=== PATIENT | female | born 1960 | race Caucasian/White ===

== ENCOUNTER 2019-03-07 10:00 | Outpatient (RCR) | payer MEDICARE, SELFPAY | END 2019-05-08 23:59 | disposition home or self-care (01) | LOC: CHSSENLIFE 10:00 | PROVIDERS: PCP Internal Medicine; Visit Provider Psychiatry & Neurology Psychiatry | DX: F33.2 Major depressive disorder, recurrent severe without psychotic features (principal); F41.9 Anxiety disorder, unspecified; F60.9 Personality disorder, unspecified | CPT/HCPCS: 72072; 72100; 72146; 72148; 88305; 90853; 99213; G0463 ==

== ENCOUNTER 2019-05-10 12:00 | Outpatient (RCR) | payer MEDICARE, SELFPAY | END 2019-08-07 23:59 | disposition home or self-care (01) | LOC: CHSSENLIFE 12:00 | PROVIDERS: PCP Internal Medicine; Visit Provider Psychiatry & Neurology Psychiatry | DX: F33.2 Major depressive disorder, recurrent severe without psychotic features (principal); F41.9 Anxiety disorder, unspecified; F60.9 Personality disorder, unspecified | CPT/HCPCS: 90853; 99213; G0463 ==

== ENCOUNTER 2019-06-19 11:17 | Outpatient (CLI) | payer MEDICARE, SELFPAY | END 2019-06-19 11:18 | disposition home or self-care (01) | LOC: CHSLAB 11:23 | PROVIDERS: PCP Internal Medicine; Visit Provider Specialist | DX: C44.719 Basal cell carcinoma of skin of left lower limb, including hip (principal) | CPT/HCPCS: 88305 ==

== ENCOUNTER 2019-07-16 15:21 | Outpatient (CLI) | payer MEDICARE, SELFPAY ==
--- NOTE | ~2019-07-16 | CT_ITS ---
EXAMINATION: CT abdomen pelvis w con DATE: 07/16/2019 16:35 INDICATION: Acute abdominal pain TECHNIQUE: Computed tomography (CT) of the abdomen and pelvis was performed with 100 cc Omnipaque 350 intravenous contrast. The dose-length product was 193.61 mGy-cm. Automated exposure control and iter ative reconstruction technique were employed. COMPARISON: None. FINDINGS: Lung bases are within normal limits. Heart size is normal. No significant pleural or perica rdial effusion. There are surgical clips in the right pelvis suggesting previous appendectomy. Correl ate clinically. The liver, spleen, pancreas, adrenal glands are unremarkable. Gallbladder is present. There are multi ple small subcentimeter hypodensities of the kidneys, most likely benign cysts. No lymphadenopathy. G allbladder is present. No free air or free fluid. There is mild thickening of the distal aspect of th e stomach at the pylorus, suspicious for gastritis. IMPRESSION: 1. Abnormal thickening of the distal aspect of the stomach at the pylorus, suspicious for gastritis. Reviewed, dictated and finalized at location A. IMPRESSION: 1. Abnormal thickening of the distal aspect of the stomach at the pylorus, susp icious for gastritis.
[2019-07-16 15:45] LABS: Basophils Absolute Auto 0.06 K/mm3 (0.00-0.10); Basophils Percent Auto 0.6 % (0.0-1.0); Eosinophils Absolute Auto 0.29 K/mm3 (0.02-0.50); Eosinophils Percent Auto 2.8 % (1.0-6.0); Hematocrit 27.9 % (35.0-49.0); Hemoglobin 8.8 g/dL (12.0-15.0); Immature Granulocyte Absolute 0.04 K/mm3 (0.00-0.00); Immature Granulocyte Percent A 0.4 % (0.0-0.0); Lymphocytes Absolute Auto 2.93 K/mm3 (1.10-4.50); Lymphocytes Percent Auto 28.3 % (18.0-42.0); Mean Corpuscular HGB Conc 31.5 g/dL (32.0-36.0); Mean Corpuscular Hemoglobin 28.8 pg (27.0-31.0); Mean Corpuscular Volume 91.2 fL (78.0-102.0); Mean Platelet Volume 10.1 fl (9.2-11.8); Monocytes Absolute Auto 0.73 K/mm3 (0.10-0.90); Monocytes Percent Auto 7.1 % (2.0-11.0); Neutrophils Absolute Auto 6.3 K/mm3 (1.7-7.2); Neutrophils Percent Auto 60.8 % (50.0-70.0); Platelet Count Result 315 K/mm3 (150-420); Red Blood Count 3.06 M/mm3 (4.20-5.40); Red Cell Distribution Width 16.8 % (11.6-14.4); White Blood Count 10.3 K/mm3 (4.8-10.8)
[2019-07-16 15:48] LABS: Add Urine Microscopic? YES; Bilirubin Urine 1+ (Negative); Blood Urine Negative (Negative); Color Urine Yellow (Yellow); Glucose Urine UA Negative (Negative); Ketones Urine Trace (Negative); Leukocyte Esterase Ur Negative (Negative); Nitrate Urine Negative (Negative); Protein Urine Negative (Negative); Specific Grav Ur >= 1.030 (1.010-1.020); Urobilinogen Urine 0.2 mg/dL (0.2-1.0)
[2019-07-16 16:01] LABS: Alanine Aminotransferase 18 U/L (14-59); Albumin Level 3.9 g/dL (3.4-5.0); Alkaline Phosphatase 76 U/L (46-116); Amylase 101 U/L (25-115); Anion Gap 18.2 mmol/L (7-16); Aspartate Amino Transferase 15 U/L (15-37); Bilirubin,Total 0.2 mg/dL (0.00-1.00); Blood Urea Nitrogen 41 mg/dL (7-18); Calcium 9.2 mg/dL (8.5-10.1); Carbon Dioxide 22 mmol/L (21-32); Chloride 107 mmol/L (98-108); Estimated Glomerular Filt Rate 45; Glucose 123 mg/dL (70-99); Lipase 336 U/L (73-393); Osmolality Calculated 309 mOsm/kg (285-295); Potassium 3.2 mmol/L (3.5-5.1); Sodium 144 mmol/L (136-145); Total Protein 7.5 g/dL (6.4-8.2)
[2019-07-16 16:04] LABS: Lactic Acid 3.2 mmol/L (0.4-2.0)
[2019-07-16 16:11] LABS: Appearance Urine Sl Cloudy (Clear); Bacteria Urine 1+ /hpf; Mucus Urine Few /lpf; RBC Urine None seen /hpf (0-2); Squamous Epithelial Cell Urine Few /hpf (Few); WBC Urine None seen /hpf (0-3)
== END 2019-07-16 15:22 | disposition home or self-care (01) ==
LOC: CHSLAB 15:24
PROVIDERS: PCP Internal Medicine; Visit Provider Internal Medicine
DX: R10.9 Unspecified abdominal pain (principal)
CPT/HCPCS: 36415; 74177; 80053; 81001; 82150; 83605; 83690; 85025; 87077; 87086; 87088; Q9965

== ENCOUNTER 2019-07-16 16:54 | Observation (INO) | payer MEDICARE, SELFPAY ==
[2019-07-16] MEDS: SODIUM CHLORIDE 0.9% IV 1,000 ML 150 ML IV CONT ×2 (17:24→23:10)
[2019-07-16 17:25] VITALS: BP 196/94; PULSE 20; RESP 16; TEMP 36.7; O2SAT 99
[2019-07-16] MEDS: ONDANSETRON INJ 4 MG/2 ML VIAL IV PUSH ×2 (17:39→23:11)
[2019-07-16] MEDS: MORPHINE SULFATE 4 MG/ML INJ IV PUSH (17:40)
--- NOTE | 2019-07-16 18:02 | ED.NAVMDI ---
HPI - Nausea/Vomiting/Diarrhea General Chief complaint: Nausea/Vomiting/Diarrhea Stated complaint: sent from doctor morenita Source: patient Mode of arrival: ambulatory Limitations: no limitations History of Present Illness HPI Narrative: last week had a sensation of distension like she needed to burp, then on tuesday she began to experience nausea and vomiting. Her last BM was tuesday (not unusual for her) She has pain in ruq and LUQ as well. she describes the pain as achy and worse when she sits or stands. Laying doen is more comfortable. She denies blood or coffee ground emesis. MD elicited complaint: nausea, vomiting and abdominal pain Onset (ago): day(s) Description of vomiting: food contents Associated nausea: Yes Associated abdominal pain: Yes Location of pain: LUQ and RUQ Radiation: diffuse Pain consistency: constant Severity: moderate Quality: cramping Exacerbating factors: standing Relieving factors: other (laying down) Associated symptoms: nausea/vomiting and weakness Related Data Home Medications Medication Instructions Recorded Confirmed alprazolam 0.5 mg PO PRN PRN 07/16/19 07/16/19 amlodipine 2.5 mg PO DAILY 07/16/19 07/16/19 atorvastatin 40 mg PO DAILY 07/16/19 07/16/19 fluoxetine 40 mg PO DAILY 07/16/19 07/16/19 fluticasone propionate 50 mcg INTRANASAL BID 07/16/19 07/16/19 lamotrigine 200 mg PO DAILY 07/16/19 07/16/19 potassium chloride 10 meq PO DAILY 07/16/19 07/16/19 tizanidine 4 mg PO DAILY 07/16/19 07/16/19 topiramate 200 mg PO DAILY 07/16/19 07/16/19 Allergies Allergy/AdvReac Type Severity Reaction Status Date / Time lorazepam Allergy Unknown Verified 04/11/18 14:38 Penicillins Allergy Unknown Verified 04/11/18 14:07 phenytoin Allergy Unknown Verified 04/11/18 14:38 Sulfa (Sulfonamide Allergy Unknown HIVES Verified 06/23/17 11:46 Antibiotics) aripiprazole AdvReac Intermediate PASSES OUT Verified 06/23/17 11:46 amitriptyline AdvReac Unknown CONFUSION Verified 06/23/17 07:34 SEROTONINS AdvReac Severe SEIZURES, Uncoded 03/10/17 15:00 PASSES OUT LORAZEPAM (Generic Allergy) AdvReac Intermediate GETS Uncoded 03/10/17 15:00 VIOLENT Review of Systems Constitutional: Constitutional: Denies chills, Denies fever(s) and Reports weakness Eyes: Eyes: Reports no additional eye complaints ENT: Reports as per HPI Cardiovascular: Cardiovascular: Reports no additional cardiovascular complaints Respiratory: Respiratory: Reports no additional respiratory complaints Gastrointestinal: Gastrointestinal: Reports abdominal pain, Reports bloating, Denies constipation, Reports heartburn, Denies diarrhea, Reports nausea and Reports vomiting Genitourinary: Genitourinary: Reports no additional female genitourinary complaints Musculoskeletal: Musculoskeletal: Reports no additional musculoskeletal complaints Comments: nothing unusual; Integumentary/Breasts: Skin/Breast: Reports system reviewed and no additional complaints, except as docu Neurologic: Reports system reviewed and no additional complaints, except as documented Psychiatric: Psychiatric: Reports no additional psychiatric complaints Endocrine: Endocrine: Reports no additional endocrine complaints Hematologic/Lymphatic: Hematologic/Lymphatic: Reports no additional hematologic/lymphatic complaints Allergic/Immunologic: Allergic/Immunologic: Reports no additional allergic/immunologic complaints [facility] Family History Family History Other Family history of malignant neoplasm Social History Social History Smoking status: Never smoker Alcohol intake: never Exam Const: General: no acute distress and alert Nutritional Appearance: thin Orientation/consciousness: patient oriented x3 HENMT: Head: normal to inspection Eyes: Pupils: Equal, round and reactive pupils present EOM: EOMs intact bilaterally Neck: N
[2019-07-16] MEDS: SODIUM CHLORIDE 0.9% IV 1,000 ML 999 ML IV CONT (19:07)
[2019-07-16 19:30] VITALS: BP 174/83; PULSE 91; O2SAT 98
[2019-07-16 19:56] VITALS: BMI 18.7
[2019-07-16 20:00] VITALS: BP 169/87; PULSE 87; RESP 18; TEMP 36.5; O2SAT 99
[2019-07-17] VITALS: BP 169/70; PULSE 84; RESP 20; TEMP 36.2; O2SAT 97
--- NOTE | 2019-07-17 00:59 | PC.NURSE ---
Sleeping, resp even. IV continues 0.9NS @ 150ml hr.
[2019-07-17] MEDS: TIZANIDINE HCL 2 MG TABLET 4 MG (02:05)
[2019-07-17] MEDS: ACETAMINOPHEN 325 MG TABLET 650 MG PO (02:06)
[2019-07-17] MEDS: TIZANIDINE HCL 2 MG TABLET 4 MG PO (02:14)
--- NOTE | 2019-07-17 02:16 | PC.NURSE ---
Zanaflex 4mg po given per order. Pt stated she takes this @ bedtime. Tylenol 650 mg po given per request for abd & back pain. IV continues 150ml hr 0.9N<del>S</del>
[2019-07-17 03:22] VITALS: BP 160/74; PULSE 94; RESP 20; TEMP 36.3; O2SAT 97
--- NOTE | 2019-07-17 03:24 | PC.NURSE ---
IV continues 0.9NS @ 150ml hr.
--- NOTE | 2019-07-17 04:14 | PC.NURSE ---
Sleeping, resp even. IV continues 150ml hr 0.9NS.
[2019-07-17 05:33] LABS: Basophils Absolute Auto 0.04 K/mm3 (0.00-0.10); Basophils Percent Auto 0.6 % (0.0-1.0); Eosinophils Absolute Auto 0.28 K/mm3 (0.02-0.50); Eosinophils Percent Auto 4.1 % (1.0-6.0); Immature Granulocyte Absolute 0.02 K/mm3 (0.00-0.00); Immature Granulocyte Percent A 0.3 % (0.0-0.0); Lymphocytes Absolute Auto 2.63 K/mm3 (1.10-4.50); Lymphocytes Percent Auto 38.7 % (18.0-42.0); Mean Corpuscular HGB Conc 31.4 g/dL (32.0-36.0); Mean Corpuscular Hemoglobin 28.8 pg (27.0-31.0); Mean Corpuscular Volume 91.7 fL (78.0-102.0); Mean Platelet Volume 9.9 fl (9.2-11.8); Monocytes Absolute Auto 0.52 K/mm3 (0.10-0.90); Monocytes Percent Auto 7.6 % (2.0-11.0); Neutrophils Absolute Auto 3.3 K/mm3 (1.7-7.2); Neutrophils Percent Auto 48.7 % (50.0-70.0); Platelet Count Result 204 K/mm3 (150-420); Red Blood Count 2.29 M/mm3 (4.20-5.40); Red Cell Distribution Width 16.9 % (11.6-14.4); White Blood Count 6.8 K/mm3 (4.8-10.8)
[2019-07-17 05:44] LABS: Hemoglobin 6.6 g/dL (12.0-15.0)
--- NOTE | 2019-07-17 05:50 | PC.NURSE ---
Doctor notified of critical HG. New order received for type and screen to receive 2 units of blood product. Consent to received blood products obtained
--- NOTE | 2019-07-17 06:00 | PC.NURSE ---
Blood permit read & signed.
--- NOTE | 2019-07-17 06:28 | PC.NURSE ---
IV fluid infused. Awaiting blood product.
--- NOTE | 2019-07-17 06:53 | PM.IMPN ---
Progress Note: A&P Assessment and Plan (1) Gastritis: Qualifiers: Chronicity: acute Gastritis bleeding: without bleeding Gastritis type: unspecified gastritis Qualified Code(s): K29.00 - Acute gastritis without bleeding Code(s): K29.70 - Gastritis, unspecified, without bleeding Status: Acute (2) Anemia: Qualifiers: Anemia type: unspecified type Qualified Code(s): D64.9 - Anemia, unspecified Code(s): D64.9 - Anemia, unspecified Status: Acute Assessment and Plan: 1. Significant HB drop Subjective Date/time seen: 07/17/19 06:53 Interval history: pt HB dropped overnight, d/w Dr. Crawford. will transfer to [place] Objective Data Vital Signs Vital Signs: Vital Signs - 24 hr 07/16/19 17:25 07/16/19 19:30 07/16/19 20:00 Temperature 36.7 C 36.5 C Pulse Rate 20 L 91 87 Respiratory Rate 16 18 Blood Pressure 196/94 H 174/83 H 169/87 H Pulse Oximetry 99 98 99 07/17/19 00:00 07/17/19 03:22 Temperature 36.2 C L 36.3 C L Pulse Rate 84 94 Respiratory Rate 20 20 Blood Pressure 169/70 H 160/74 H Pulse Oximetry 97 97 Intake/Output Intake/Output: Intake & Output 07/14/19 07/15/19 07/16/19 07/17/19 23:59 23:59 23:59 23:59 Intake Total 1000 1050 Output Total 850 Balance 1000 200 Meds/Results Medications: Active Medications Generic Name Dose Route Start Last Admin Trade Name Freq PRN Reason Stop Dose Admin Acetaminophen 650 mg 07/16/19 20:48 07/17/19 02:06 Tylenol Tablet PO 650 mg Q6H PRN Administration Mild Pain (1-3) or Fever Alprazolam 0.5 mg 07/16/19 20:54 Xanax PO Q6H PRN Anxiety Amlodipine Besylate 2.5 mg 07/17/19 09:00 Norvasc PO DAILY LYUDMILA Atorvastatin Calcium 40 mg 07/17/19 09:00 Lipitor PO DAILY LYUDMILA Fluoxetine HCl 40 mg 07/17/19 09:00 Prozac PO DAILY LYUDMILA Fluticasone Propionate 1 spray 07/17/19 09:00 Flonase 0.05% Nasal Deposit NASAL BID LYUDMILA Sodium Chloride 250 mls @ 30 mls/hr 07/17/19 05:46 Normal Saline Iv IV CONT 07/17/19 14:05 .Q8H20M STA Lamotrigine 200 mg 07/17/19 09:00 Lamictal PO DAILY LYUDMILA Ondansetron HCl 4 mg 07/16/19 19:11 07/16/19 23:11 Zofran Inj IV PUSH 4 mg Q4H PRN Administration Nausea Pantoprazole Sodium 40 mg 07/17/19 09:00 Protonix Iv IV PUSH QAM LYUDMILA Potassium Chloride 10 meq 07/17/19 09:00 Kcl Tablet PO DAILY LYUDMILA Tizanidine HCl 4 mg 07/17/19 02:05 07/17/19 02:14 Zanaflex PO 4 mg HS LYUDMILA Administration Topiramate 200 mg 07/17/19 09:00 Topamax PO DAILY [facility] Labs Labs: Laboratory Results - last 24 hr 07/17/19 07/17/19 05:27 05:45 WBC 6.8 RBC 2.29 L Hgb 6.6 L* Hct 21.0 L MCV 91.7 MCH 28.8 MCHC 31.4 L RDW 16.9 H Plt Count 204 MPV 9.9 Immature Gran % (Auto) 0.3 H Neut % (Auto) 48.7 L Lymph % (Auto) 38.7 [place] % (Auto) 7.6 Eos % (Auto) 4.1 Baso % (Auto) 0.6 Lymph # (Auto) 2.63 [place] # (Auto) 0.52 Eos # (Auto) 0.28 Baso # (Auto) 0.04 Abs Immat Gran (auto) 0.02 H Absolute Neuts (auto) 3.3 Absolute Nucleated RBC 0.00 Nucleated RBC % 0.0 Blood Type A Positive Antibody Screen Negative Crossmatch See Detail
--- NOTE | 2019-07-17 07:16 | PM.DS ---
DS: Diagnosis Discharge Diagnosis (1) GI bleed: Code(s): K92.2 - Gastrointestinal hemorrhage, unspecified Status: Acute (2) Anemia: Qualifiers: Anemia type: unspecified type Qualified Code(s): D64.9 - Anemia, unspecified Code(s): D64.9 - Anemia, unspecified Status: Acute DS: Summary Hospital Course Reason for hospitalization: Pt was admitted last night with epigastric pain. It was noted that her HB was decreased 2 points from its baseline. Overnight pt did well, but on blood draw this AM HB had decreased to 6.6 This is a total drop of approximately 6 points. Due to concern for UGI bleed, we will transfer to [place]. Case was discussed with Dr. Recinos and Dr. Steel. Pts vss. Hospital Course: Protonix, IVF, pain control and HB monitoring Status at Discharge Functional status at discharge: independent ambulation Time Spent with Patient Time attestation: Total time spent providing and/or coordinating discharge services: 30 min Exam Narrative: Exam Narrative: exam as of 07/16/19 Const: General: no acute distress Resp: Effort & Inspection: normal respiratory effort Auscultation: clear to auscultation bilaterally Cardio: Rate: regular rate Rhythm: regular rhythm GI: GI Palp: Yes Soft to palpation and Yes Tenderness to palpation present (GI) (mild epigastric) Skin: General skin exam: normal color Neuro: General: gait normal Motor exam (neuro): Normal motor muscle tone present throughout Extrem: General: normal to inspection Psych: Appearance: grossly normal Mental Status: mental status grossly normal DS: Data Data Completed and Pending Labs on day of discharge: Labs from last 24 hours 07/17/19 07/17/19 05:45 05:27 WBC 6.8 RBC 2.29 L Hgb 6.6 L* Hct 21.0 L MCV 91.7 MCH 28.8 MCHC 31.4 L RDW 16.9 H Plt Count 204 MPV 9.9 Immature Gran % (Auto) 0.3 H Neut % (Auto) 48.7 L Lymph % (Auto) 38.7 [place] % (Auto) 7.6 Eos % (Auto) 4.1 Baso % (Auto) 0.6 Lymph # (Auto) 2.63 [place] # (Auto) 0.52 Eos # (Auto) 0.28 Baso # (Auto) 0.04 Abs Immat Gran (auto) 0.02 H Absolute Neuts (auto) 3.3 Absolute Nucleated RBC 0.00 Nucleated RBC % 0.0 Blood Type A Positive Antibody Screen Negative Crossmatch See Detail Discharge Plan Discharge Attending physician on discharge: Lynn Sheets Discharging Clinician: Lynn Sheets Patient Disposition: Acute Care Hospital Discharge Instructions: Transfer to [place] under Dr. Steel and Dr. Recinos, room 322 Discharge Medications: Continued fluoxetine 40 mg capsule 40 mg PO DAILY RF: 0 atorvastatin 40 mg tablet 40 mg PO DAILY RF: 0 lamotrigine 200 mg tablet 200 mg PO DAILY RF: 0 tizanidine 4 mg tablet 4 mg PO DAILY RF: 0 amlodipine 2.5 mg tablet 2.5 mg PO DAILY RF: 0 alprazolam 0.5 mg tablet 0.5 mg PO PRN PRN (Reason: Anxiety) RF: 0 topiramate 200 mg tablet 200 mg PO DAILY RF: 0 fluticasone propionate 50 mcg/actuation spray,suspension 50 mcg INTRANASAL BID RF: 0 potassium chloride 10 mEq tablet,ER particles/crystals 10 meq PO DAILY RF: 0 Date of admission: 07/16/19 19:19 Primary Care Provider: Uziel Garcia Admitting Provider: Lynn Sheets Attending physician on admission: Lynn Sheets Condition: Stable
--- NOTE | 2019-07-17 07:25 | PC.NURSE ---
Report called to [facility]
[2019-07-17 07:36] VITALS: BP 140/73; PULSE 86; RESP 18; TEMP 36.6; O2SAT 99
[2019-07-17 07:45] VITALS: BP 140/73; PULSE 86; RESP 18; TEMP 36.6; O2SAT 99
[2019-07-17 08:00] VITALS: BP 140/73; PULSE 86; RESP 18; TEMP 36.6; O2SAT 99
--- NOTE | 2019-07-17 08:46 | PC.NURSE ---
PRBC 1 unit started at 0745 at 100ml/hr. No s/s transfusion reaction noted or stated. 0800 PRBC increased to 125ml/hr. No s/s transfusion reaction noted or stated. 0840 [facility] ambulance transferred patient off of floor to [facility]. No s/s infusion reaction noted or stated.
== END 2019-07-17 08:40 | disposition short-term general hospital (02) ==
LOC: CHSED 19:18 → CHS2ND 19:20
PROVIDERS: Admitting Provider Emergency Medicine; Emergency Provider Emergency Medicine; PCP Internal Medicine; Visit Provider Emergency Medicine
DX: K92.2 Gastrointestinal hemorrhage, unspecified (principal); D64.9 Anemia, unspecified
CPT/HCPCS: 36415; 36430; 74177; 80053; 81001; 82150; 83605; 83690; 85025; 86850; 86900; 86901; 86920; 87077; 87086; 87088; 96361; 96374; 96375; 96376; 99285; A9270; G0378; J2270; J2405; J7030; P9016; Q9965

== ENCOUNTER 2019-07-17 14:27 | Observation (INO) | payer MEDICARE, SELFPAY ==
[2019-07-17] VITALS (9 sets, daily range): BP systolic 103–184; BP diastolic 59–94; PULSE 68–93; RESP 14–20; TEMP 36.4–36.9; O2SAT 98–100; BMI 19.1
--- NOTE | 2019-07-17 09:15 | PC.NURSE ---
Patient arrived from [facility] with a unit of PRBC infusing per IV pump at 125ml/hr. No signs or symptoms of blood transfusion reaction.
--- NOTE | 2019-07-17 09:15 | PC.NURSE ---
This patient, Rachele Wilkins, was admitted to [facility] Surg Room 322-01. Patient/family oriented to hospital policies and general routines including ID bracelet, bed and alarms, visiting hours, pain management, procedures, bathroom and other care routines, personal items, smoking policy, room service/diet, and visiting hours. Valuables list has been completed. Information on how to activate the Rapid Response Team has been discussed. Patient/Family are encouraged to report perceived risks to care and to ask questions if they do not understand what they are told or what they should do.
--- NOTE | 2019-07-17 10:35 | PC.NURSE ---
1 unit PRBC infused.
--- NOTE | 2019-07-17 10:40 | PC.NURSE ---
To GI Lab via [employer]er.
--- NOTE | 2019-07-17 10:57 | WPDGICN ---
Assessment and Plan Assessment and plan (1) Epigastric abdominal pain: Code(s): R10.13 - Epigastric pain Status: Acute Assessment and Plan: Patient has had epigastric pain for several days. Currently poorly responsive to current medications. In light of her epigastric pain baseline anemia and decline in hemoglobin EGD will be performed. No obvious bleeding reported. Dark stools is suspicious for upper GI bleeding. Plan is to guaiac stool Hemoccult patient will be started on proton pump inhibitor. An EGD will be performed. Patient will be transfused to a stable hemoglobin. And hematocrit monitored. (2) Anemia: Qualifiers: Anemia type: unspecified type Qualified Code(s): D64.9 - Anemia, unspecified Code(s): D64.9 - Anemia, unspecified Status: Acute GI Consult Note Consult date/time: 07/17/19 10:57 HPI: Rachele Wilkins is a 58 year old female Seen in evaluation at the request of the [facility] hospitalist. Patient reports a one-week history of epigastric pain nausea and some vomiting. Because of epigastric pain [facility] and was admitted for further evaluation at the time of admission hemoglobin was 8. Overnight her hemoglobin has declined to about 6. Patient states abdominal pain is persisted along with nausea over the last 3-4 days. She denies any obvious bleeding. She does report there stools were blackish 2 days ago. Her last bowel movement was 2 days ago. Family history is noncontributory. In the past she has a history of idiopathic pancreatitis and had nausea vomiting at that time. Her recent lipase was noted to be normal. She denies any prior history of ulcer disease. She takes no anticoagulation. Past medical history is significant for fibromyalgia, anxiety, elevated cholesterol. Review of Systems Review of Systems: All systems reviewed & are unremarkable except as noted in HPI and below PMFSH Past Medical History Medical History GI bleed Family History Family History Father Bladder cancer Malignant neoplasm of prostate Mother Lung cancer Other Family history of malignant neoplasm Social History Social History Smoking status: Never smoker Alcohol intake: never Substance use: never Gender identity (if verbalized by the patient): Female Spiritual care concerns: No Agree to blood products: Yes Meds Home Medications and Allergies Home Medications Medication Instructions Recorded Confirmed Type alprazolam 0.5 mg PO DAILY 07/16/19 07/17/19 History amlodipine 2.5 mg PO DAILY 07/16/19 07/17/19 History atorvastatin 80 mg PO DAILY 07/16/19 07/17/19 History fluoxetine 80 mg PO DAILY 07/16/19 07/17/19 History fluticasone propionate 50 mcg INTRANASAL BID PRN 07/16/19 07/17/19 History lamotrigine 200 mg PO BID 07/16/19 07/17/19 History potassium chloride 10 meq PO DAILY 07/16/19 07/17/19 History tizanidine 4 mg PO QID 07/16/19 07/17/19 History topiramate 200 mg PO BID 07/16/19 07/17/19 History alprazolam 0.5 mg PO DAILY PRN 07/17/19 07/17/19 History alprazolam 0.5 mg PO HS 07/17/19 07/17/19 History Allergies Allergy/AdvReac Type Severity Reaction Status Date / Time lorazepam Allergy Unknown Hallucinati Verified 07/17/19 09:51 ng Penicillins Allergy Unknown Anaphylactic Verified 07/17/19 09:51 Shock phenytoin Allergy Unknown Seizure Verified 07/17/19 09:51 Sulfa (Sulfonamide Allergy Unknown HIVES Verified 06/23/17 11:46 Antibiotics) aripiprazole AdvReac Intermediate PASSES OUT Verified 06/23/17 11:46 amitriptyline AdvReac Unknown CONFUSION Verified 06/23/17 07:34 prazosin AdvReac Unknown Confusion Verified 07/17/19 09:53 ropinirole [From Requip] AdvReac Unknown Muscle Verified 07/17/19 09:53 Spasms SEROTONINS AdvR
--- NOTE | 2019-07-17 11:00 | WPDANESEPPF ---
Anes - Initial Pre Proc Eval Procedure: Operation Date: 07/17/19 10:30 Proposed Procedures p Esophagogastroduodenoscopy - Giovani Crawford MD Date/Time: 07/17/19 11:00 Surgeon: Mohamud Steel MD Pre Op Diagnosis: abdominal pain/UGI bleed Patient Data Age: 58 Gender: F Height: 5 ft 5 in Weight: 52 kg Last Vital Signs Temp 36.6 C 07/17/19 09:15 Pulse 77 07/17/19 09:15 Resp 16 07/17/19 09:15 BP 177/85 H 07/17/19 09:15 Pulse Ox 100 07/17/19 09:15 Allergies Allergy/AdvReac Type Severity Reaction Status Date / Time lorazepam Allergy Unknown Hallucinati Verified 07/17/19 09:51 ng Penicillins Allergy Unknown Anaphylactic Verified 07/17/19 09:51 Shock phenytoin Allergy Unknown Seizure Verified 07/17/19 09:51 Sulfa (Sulfonamide Allergy Unknown HIVES Verified 06/23/17 11:46 Antibiotics) aripiprazole AdvReac Intermediate PASSES OUT Verified 06/23/17 11:46 amitriptyline AdvReac Unknown CONFUSION Verified 06/23/17 07:34 prazosin AdvReac Unknown Confusion Verified 07/17/19 09:53 ropinirole [From Requip] AdvReac Unknown Muscle Verified 07/17/19 09:53 Spasms SEROTONINS AdvReac Severe SEIZURES, Uncoded 03/10/17 15:00 PASSES OUT LORAZEPAM (Generic Allergy) AdvReac Intermediate GETS Uncoded 03/10/17 15:00 VIOLENT Home Medications Medication Instructions Recorded Confirmed Type alprazolam 0.5 mg PO DAILY 07/16/19 07/17/19 History amlodipine 2.5 mg PO DAILY 07/16/19 07/17/19 History atorvastatin 80 mg PO DAILY 07/16/19 07/17/19 History fluoxetine 80 mg PO DAILY 07/16/19 07/17/19 History fluticasone propionate 50 mcg INTRANASAL BID PRN 07/16/19 07/17/19 History lamotrigine 200 mg PO BID 07/16/19 07/17/19 History potassium chloride 10 meq PO DAILY 07/16/19 07/17/19 History tizanidine 4 mg PO QID 07/16/19 07/17/19 History topiramate 200 mg PO BID 07/16/19 07/17/19 History alprazolam 0.5 mg PO DAILY PRN 07/17/19 07/17/19 History alprazolam 0.5 mg PO HS 07/17/19 07/17/19 History Patient hx anesthesia problems: none Family hx anesthesia problems: none PMFSH Past Medical History Medical History GI bleed Family History Family History Father Bladder cancer Malignant neoplasm of prostate Mother Lung cancer Other Family history of malignant neoplasm Social History Social History Smoking status: Never smoker Alcohol intake: never Substance use: never Gender identity (if verbalized by the patient): Female Spiritual care concerns: No Agree to blood products: Yes Anes - Eval Final PreProcedure Day of Procedure 07/17/19 11:00 Patient weight: normal Heart: regular rate and rhythm Lungs: clear to auscultation Airway: Mallampati scale class II Neurological: alert and oriented Last oral intake: >/= 8 hours ASA classification: III Emergent: no Anesthetic plan: proceed Anesthesia type and monitoring: general GIVS and standard monitoring Informed Consent: The patient's anesthetic plan and its attendant risks and benefits were discussed with the patient/family/POA. Questions were solicited and answers provided to the satisfaction of the patient/family/POA.
--- NOTE | 2019-07-17 11:01 | SUR.PREOP ---
0950 PATIENT COMPLAINS OF HEADACHE RATES IT A NUMBER [id number] [id number] DR. GRIFFIN HERE TO SEE PATIENT, DR GRIFFIN INFORMED OF PATIENT'S B/P AND COMPLAINTS OF HEADACHE NO ORDERS RECEIVED AT THIS TIME. DR. GRIFFIN EXPLAINED TO PATIENT HE WOULD TREAT IT DURING THE PROCEDURE.DELFIN GARCIA
[2019-07-17] MEDS: LACTATED RINGERS 1,000 ML 150 ML IV CONT (11:08)
[2019-07-17] MEDS: PANTOPRAZOLE SODIUM IV 40 MG VIAL IV PUSH ×2 (11:59→20:47)
--- NOTE | 2019-07-17 13:19 | PM.IMHP ---
H&P: HPI History of Present Illness Chief complaint: abdominal pain/UGI bleed Narrative: Rachele Wilkins is a 58 year old female with depression anxiety and migraine headaches, long history chronic pain for which patient sees pain management and denies taking any NSAID as patient is treated with a injection, and states he had developed epigastric pain 2 days prior to coming to emergency depart the pain was getting persistent and worse see also noticed black tarry stool but there was no jim bleeding, initially seen at outside facility and was found to have hemoglobin of 6.6 and transferred to [facility] for further evaluation, was seen by GI and was taken to GI lab and had a EGD today which showed patient has a gastric ulcer with there was no acute bleeding, commended to start the patient on PPI and monitor, patient still complains of epigastric pain denies any nausea or vomiting fever or chills denies any jim bleeding. Review of Systems Review of Systems: All systems reviewed & are unremarkable except as noted in HPI and below PMFSH Past Medical History Medical History GI bleed Family History Family History Father Bladder cancer Malignant neoplasm of prostate Mother Lung cancer Other Family history of malignant neoplasm Social History Social History Smoking status: Never smoker Alcohol intake: never Substance use: never Gender identity (if verbalized by the patient): Female Spiritual care concerns: No Agree to blood products: Yes Meds Home Medications and Allergies Home Medications Medication Instructions Recorded Confirmed Type alprazolam 0.5 mg PO DAILY 07/16/19 07/17/19 History amlodipine 2.5 mg PO DAILY 07/16/19 07/17/19 History atorvastatin 80 mg PO DAILY 07/16/19 07/17/19 History fluoxetine 80 mg PO DAILY 07/16/19 07/17/19 History fluticasone propionate 50 mcg INTRANASAL BID PRN 07/16/19 07/17/19 History lamotrigine 200 mg PO BID 07/16/19 07/17/19 History potassium chloride 10 meq PO DAILY 07/16/19 07/17/19 History tizanidine 4 mg PO QID 07/16/19 07/17/19 History topiramate 200 mg PO BID 07/16/19 07/17/19 History alprazolam 0.5 mg PO DAILY PRN 07/17/19 07/17/19 History alprazolam 0.5 mg PO HS 07/17/19 07/17/19 History Allergies Allergy/AdvReac Type Severity Reaction Status Date / Time lorazepam Allergy Unknown Hallucinati Verified 07/17/19 09:51 ng Penicillins Allergy Unknown Anaphylactic Verified 07/17/19 09:51 Shock phenytoin Allergy Unknown Seizure Verified 07/17/19 09:51 Sulfa (Sulfonamide Allergy Unknown HIVES Verified 06/23/17 11:46 Antibiotics) aripiprazole AdvReac Intermediate PASSES OUT Verified 06/23/17 11:46 amitriptyline AdvReac Unknown CONFUSION Verified 06/23/17 07:34 prazosin AdvReac Unknown Confusion Verified 07/17/19 09:53 ropinirole [From Requip] AdvReac Unknown Muscle Verified 07/17/19 09:53 Spasms SEROTONINS AdvReac Severe SEIZURES, Uncoded 03/10/17 15:00 PASSES OUT LORAZEPAM (Generic Allergy) AdvReac Intermediate GETS Uncoded 03/10/17 15:00 VIOLENT Vital Signs Vital Signs - 24 hr 07/17/19 09:15 07/17/19 10:59 07/17/19 11:19 Temperature 97.9 F 98.4 F Pulse Rate 77 77 87 Respiratory Rate 16 16 16 Blood Pressure 177/85 H 184/94 H 153/75 H Pulse Oximetry 100 100 98 07/17/19 11:20 07/17/19 11:30 07/17/19 11:42 Temperature Pulse Rate 82 73 76 Respiratory Rate 15 14 16 Blood Pressure 152/72 H 167/88 H 169/78 H Pulse Oximetry 100 100 100 Exam Narrative: Exam Narrative: Patient appears chronically ill older than her age Const: General: no acute distress and uncomfortable HENMT: General nose exam: Normal nares present Mouth: Yes moist mucous membranes Eyes: General: appearance normal, both eyes and all related structures Sclera: sclerae normal N
[2019-07-17 14:01] LABS: Iron 69 ug/dL (37-170)
[2019-07-17 14:11] LABS: Percent Iron Saturation 18 % (20-50)
[2019-07-17] MEDS: ALPRAZOLAM 0.5 MG TABLET PO ×2 (15:31→20:47)
[2019-07-17] MEDS: lamoTRIgine 100 MG TABLET 200 MG PO (17:25)
[2019-07-17] MEDS: TOPIRAMATE 100 MG TABLET 200 MG PO (17:26)
[2019-07-17] MEDS: TIZANIDINE HCL 4 MG TABLET PO ×2 (17:26→20:47)
[2019-07-17 17:37] LABS: Hematocrit 31.9 % (37.0-47.0); Hemoglobin 10.3 g/dL (12.0-15.0)
[2019-07-18 00:36] LABS: Hematocrit 26.3 % (37.0-47.0); Hemoglobin 8.4 g/dL (12.0-15.0)
[2019-07-18] MEDS: ACETAMINOPHEN 325 MG TABLET 650 MG PO ×2 (02:30→08:06)
[2019-07-18 05:35] LABS: Hemoglobin 8.8 g/dL (12.0-15.0); Mean Corpuscular HGB Conc 31.4 g/dl (32-36); Mean Corpuscular Hemoglobin 28.7 pg (26-34); Mean Corpuscular Volume 91.2 fl (80-100); Mean Platelet Volume 9.9 fl (7.4-10.4); Platelet Count Result 226 k/mm3 (150-375); Red Blood Count 3.07 M/mm3 (4.2-5.4); Red Cell Distribution Width 15.9 % (11.5-14.5); White Blood Count 5.1 K/mm3 (4.5-10.0)
[2019-07-18 05:48] LABS: Blood Urea Nitrogen 10 mg/dL (7-17); Calcium 8.9 mg/dL (8.4-10.2); Carbon Dioxide 27 mmol/L (22-30); Chloride 107 mmol/L (98-107); Estimated CRCL calculation 43 ml/min; Estimated Glomerular Filt Rate 57; Glucose 99 mg/dL (65-105); Potassium 3.4 mmol/L (3.4-5.0); Sodium 139 mmol/L (137-145)
[2019-07-18 06:00] VITALS: BP 149/79; PULSE 78; RESP 20; TEMP 37.1; O2SAT 99
--- NOTE | 2019-07-18 07:30 | WPDGIPROGNO ---
Progress Note: A&P Additional Plan Patient much more comfortable this morning. Still notices some epigastric discomfort. No longer vomiting. Tolerated liquid diet without difficulty. Physical exam reveals her to be afebrile. Vital signs stable. HEENT exam she is unremarkable. Lungs are clear. Abdomen is soft. Bowel sounds are present. Mild epigastric tenderness. No masses are noted. Laboratory: Hemoglobin 8.8 is stable. She did receive transfusion yesterday. EGD revealed several gastric ulcers. No longer bleeding. Bleeding was probably several days ago. Partial gastric outlet obstruction noted at time of endoscopy. Impression 1. Peptic ulcer disease. Gastric ulcers with partial gastric outlet obstruction noted. Plan is for liquid diet to be advanced gradually. Protonix 40 mg p.o. b.i.d. advised. Follow-up EGD in 2 months suggested to document healing of gastric ulcers. If diet tolerated in pain improve she may be discharged today. Subjective Date/time seen: 07/18/19 07:30 Objective Data Vital Signs Vital Signs: Vital Signs - 24 hr 07/17/19 09:15 07/17/19 10:59 07/17/19 11:19 Temperature 36.6 C 36.9 C Pulse Rate 77 77 87 Respiratory Rate 16 16 16 Blood Pressure 177/85 H 184/94 H 153/75 H Pulse Oximetry 100 100 98 07/17/19 11:20 07/17/19 11:30 07/17/19 11:42 Temperature Pulse Rate 82 73 76 Respiratory Rate 15 14 16 Blood Pressure 152/72 H 167/88 H 169/78 H Pulse Oximetry 100 100 100 07/17/19 11:50 07/17/19 14:00 07/17/19 22:00 Temperature 36.6 C 36.4 C L 36.7 C Pulse Rate 78 93 68 Respiratory Rate 14 18 20 Blood Pressure 158/67 H 172/84 H 103/59 L Pulse Oximetry 100 100 99 07/18/19 06:00 Temperature 37.1 C Pulse Rate 78 Respiratory Rate 20 Blood Pressure 149/79 H Pulse Oximetry 99 Intake/Output Intake/Output: Intake & Output 07/15/19 07/16/19 07/17/19 07/18/19 23:59 23:59 23:59 23:59 Intake Total 925 790 Output Total 3490 400 Balance -2565 390 Meds/Results Medications: Active Medications Generic Name Dose Route Start Last Admin Trade Name Freq PRN Reason Stop Dose Admin Acetaminophen 650 mg 07/17/19 17:29 07/18/19 02:30 Tylenol Tablet PO 650 mg Q6H PRN Administration Mild Pain (1-3) or Fever Alprazolam 0.5 mg 07/17/19 15:16 07/17/19 15:31 Xanax PO 0.5 mg DAILY PRN Administration Anxiety Alprazolam 0.5 mg 07/17/19 21:00 07/17/19 20:47 Xanax PO 0.5 mg HS LYUDMILA Administration Alprazolam 0.5 mg 07/18/19 09:00 Xanax PO DAILY [facility] Amlodipine Besylate 2.5 mg 07/18/19 09:00 Norvasc PO DAILY [facility] Atorvastatin Calcium 80 mg 07/18/19 09:00 Lipitor PO DAILY [facility] Fluoxetine HCl 80 mg 07/18/19 09:00 Prozac PO DAILY [facility] Fluticasone Propionate 1 spray 07/17/19 15:16 Flonase 0.05% Nasal [place] NASAL BID PRN Allergy Symptoms Lamotrigine 200 mg 07/17/19 17:00 07/17/19 17:25 Lamictal PO 200 mg BID [facility] Administration Potassium Chloride 10 meq 07/18/19 09:00 Kcl Tablet PO DAILY [facility] Tizanidine HCl 4 mg 07/17/19 17:00 07/17/19 20:47 Zanaflex PO 4 mg QID LYUDMILA Administration Topiramate 200 mg 07/17/19 17:00 07/17/19 17:26 Topamax PO 200 mg BID LYUDMILA Administration Labs Labs: Laboratory Results - last 24 hr 07/17/19 07/17/19 07/18/19 13:24 17:26 00:15 WBC RBC Hgb 10.3 L 8.4 L Hct 31.9 L 26.3 L MCV MCH MCHC RDW Plt Count MPV Sodium Potassium Chloride Carbon Dioxide BUN Creatinine Estim Creat Clear Calc Estimated GFR Glucose Calcium Iron 69 TIBC 382 % Saturation 18 L Ferritin 8.00 L 07/18/19 07/18/19 05:12 05:12 WBC 5.1 RBC 3.07 L Hgb 8.8 L Hct 28.0 L MCV 91.2 MCH 28.7 MCHC 31.4 L RDW 15.9 H Plt Count 226 MPV 9.9 Sodium 139 Potassium 3.4 Chloride 107 Carbon Dioxide 27 BUN 10
[2019-07-18] MEDS: ATORVASTATIN 40 MG TABLET 80 MG PO (08:07)
[2019-07-18] MEDS: ALPRAZOLAM 0.5 MG TABLET PO (08:08)
[2019-07-18] MEDS: TIZANIDINE HCL 4 MG TABLET PO ×2 (08:08→13:42)
[2019-07-18] MEDS: POTASSIUM CHLORIDE 10 MEQ TABLET.ER PO (08:09)
[2019-07-18] MEDS: POTASSIUM CHLORIDE 20 MEQ TABLET 40 MEQ PO (08:09)
[2019-07-18] MEDS: FLUOXETINE HCL 20 MG CAP 80 MG PO (08:09)
[2019-07-18] MEDS: TOPIRAMATE 100 MG TABLET 200 MG PO (08:10)
[2019-07-18] MEDS: AMLODIPINE BESYLATE 2.5 MG TABLET PO (08:10)
[2019-07-18] MEDS: lamoTRIgine 100 MG TABLET 200 MG PO (08:10)
--- NOTE | 2019-07-18 11:18 | WPDANESPN ---
Anes - Prog Note Post-Op Date/Time: 07/18/19 11:18 Cardiovascular status: normal Respiratory status: normal Airway patency: baseline Mental status: baseline Post-Op hydration status: normal Vital Signs: Last Vital Signs Temp 37.1 C 07/18/19 06:00 Pulse 78 07/18/19 06:00 Resp 20 07/18/19 06:00 BP 149/79 H 07/18/19 06:00 Pulse Ox 99 07/18/19 06:00 I/O: Intake & Output 07/17/19 07/18/19 07/18/19 23:59 07:59 15:59 Intake Total 550 790 Output Total 3490 400 Balance -2940 390 Laboratory Tests 07/18/19 05:12 07/18/19 05:12 07/17/19 07/17/19 07/18/19 13:24 17:26 00:15 WBC RBC Hgb 10.3 L 8.4 L Hct 31.9 L 26.3 L MCV MCH MCHC RDW Plt Count MPV Sodium Potassium Chloride Carbon Dioxide BUN Creatinine Estim Creat Clear Calc Estimated GFR Glucose Calcium Iron 69 TIBC 382 % Saturation 18 L Ferritin 8.00 L 07/18/19 07/18/19 05:12 05:12 WBC 5.1 RBC 3.07 L Hgb 8.8 L Hct 28.0 L MCV 91.2 MCH 28.7 MCHC 31.4 L RDW 15.9 H Plt Count 226 MPV 9.9 Sodium 139 Potassium 3.4 Chloride 107 Carbon Dioxide 27 BUN 10 Creatinine 1.00 Estim Creat Clear Calc 43 Estimated GFR 57 L Glucose 99 Calcium 8.9 Iron TIBC % Saturation Ferritin Post-procedural complaints: none Patient Feedback: Patient satisfied with anesthetic care.
--- NOTE | 2019-08-10 14:12 | PM.DS ---
DS: Diagnosis Admitting Diagnosis Admitting Diagnosis: Epigastric pain Discharge Diagnosis (1) Epigastric abdominal pain: Code(s): R10.13 - Epigastric pain Status: Acute Assessment and Plan: Rachele Wilkins is a 58 year old female with depression anxiety and migraine headaches, long history chronic pain for which patient sees pain management and denies taking any NSAID as patient is treated with a injection, and states he had developed epigastric pain 2 days prior to coming to emergency depart the pain was getting persistent and worse see also noticed black tarry stool but there was no jim bleeding, initially seen at outside facility and was found to have hemoglobin of 6.6 and transferred to [facility] for further evaluation, was seen by GI and was taken to GI lab and had a EGD today which showed patient has a gastric ulcer with there was no acute bleeding, commended to start the patient on PPI and monitor, patient still complains of epigastric pain denies any nausea or vomiting fever or chills denies any jim bleeding. (2) GI bleed: Code(s): K92.2 - Gastrointestinal hemorrhage, unspecified Status: Acute Assessment and Plan: Plan is above (3) Anemia: Qualifiers: Anemia type: unspecified type Qualified Code(s): D64.9 - Anemia, unspecified Code(s): D64.9 - Anemia, unspecified Status: Acute Assessment and Plan: Most likely secondary to gastric ulcer will do the iron profile (4) Hypertension: Code(s): I10 - Essential (primary) hypertension Status: Acute Assessment and Plan: Will resume home medication and monitor (5) Depression: Code(s): F32.9 - Major depressive disorder, single episode, unspecified Status: Acute Assessment and Plan: Will resume home medication and monitor DS: Summary Hospital Course Reason for hospitalization: Rachele Wilkins is a 58 year old female with depression anxiety and migraine headaches, long history chronic pain for which patient sees pain management and denies taking any NSAID as patient is treated with a injection, and states he had developed epigastric pain 2 days prior to coming to emergency depart the pain was getting persistent and worse see also noticed black tarry stool but there was no jim bleeding, initially seen at outside facility and was found to have hemoglobin of 6.6 and transferred to [facility] for further evaluation, was seen by GI and was taken to GI lab and had a EGD today which showed patient has a gastric ulcer with there was no acute bleeding, commended to start the patient on PPI and monitor, patient still complains of epigastric pain denies any nausea or vomiting fever or chills denies any jim bleeding. Hospital Course: Rachele Wilkins is a 58 year old female with depression anxiety and migraine headaches, long history chronic pain for which patient sees pain management and denies taking any NSAID as patient is treated with a injection, and states he had developed epigastric pain 2 days prior to coming to emergency depart the pain was getting persistent and worse see also noticed black tarry stool but there was no jim bleeding, initially seen at outside facility and was found to have hemoglobin of 6.6 and transferred to [facility] for further evaluation, was seen by GI and was taken to GI lab and had a EGD today which showed patient has a gastric ulcer with there was no acute bleeding, commended to start the patient on PPI and monitor, patient still complains of epigastric pain denies any nausea or vomiting fever or chills denies any jim bleeding. Patient was seen by Dr. Crawford and recommended liquid diet and advance diet as tolerated, started patient on protonix, patient was able to tolerate her diet and clinically stable will discahrge home with to follow up with Dr. Crawford for EGD as outpatient Status at Discharge Functional status at discharge: independent ambulation Overall status at discharge
== END 2019-07-18 14:00 | disposition home or self-care (01) ==
PROVIDERS: Internal Medicine Gastroenterology; Admitting Provider Family Medicine; PCP Internal Medicine; Visit Provider Family Medicine
PROC: 0DJ08ZZ Inspection of Upper Intestinal Tract, Via Natural or Artificial Opening Endoscopic (ICD-10-PCS; CPT 43235; principal; 2019-07-17 10:30)
DX: R10.13 Epigastric pain (principal); K25.3 Acute gastric ulcer without hemorrhage or perforation; K29.50 Unspecified chronic gastritis without bleeding; K31.1 Adult hypertrophic pyloric stenosis; D50.0 Iron deficiency anemia secondary to blood loss (chronic); I10 Essential (primary) hypertension; G43.909 Migraine, unspecified, not intractable, without status migrainosus; F32.9 Major depressive disorder, single episode, unspecified; G89.29 Other chronic pain; Z79.899 Other long term (current) drug therapy; Z88.0 Allergy status to penicillin; Z88.2 Allergy status to sulfonamides; Z88.8 Allergy status to other drugs, medicaments and biological substances
CPT/HCPCS: 43239; 36415; 80048; 82728; 83540; 83550; 85014; 85018; 85027; 88305; 88342; 96374; 96375; 96376; A9270; C9113; G0378; J0131; J2704; J7120

== ENCOUNTER 2019-08-21 13:07 | Outpatient (CLI) | payer MEDICARE, SELFPAY | END 2019-08-21 13:08 | disposition home or self-care (01) | LOC: CHSLAB 13:12 | PROVIDERS: PCP Internal Medicine; Visit Provider Specialist | DX: D04.39 Carcinoma in situ of skin of other parts of face (principal) | CPT/HCPCS: 88305 ==

== ENCOUNTER 2019-09-12 00:26 | Outpatient (CLI) | payer MEDICARE, SELFPAY ==
[2019-09-12 17:33] LABS: SARS-CoV-2 RNA PCR Negative
== END 2019-09-12 00:27 | disposition home or self-care (01) ==
LOC: ANHCOVIDDT 00:26
PROVIDERS: PCP Internal Medicine; Visit Provider Internal Medicine Gastroenterology
DX: Z01.812 Encounter for preprocedural laboratory examination (principal); Z20.828 Contact with and (suspected) exposure to other viral communicable diseases
CPT/HCPCS: 87635; C9803; U0003

== ENCOUNTER 2019-09-14 00:40 | Day surgery (SDC) | payer MEDICARE, SELFPAY ==
[2019-09-04 13:52] VITALS: BMI 19.1
[2019-09-14 08:34] VITALS: BP 136/63; PULSE 88; RESP 14; TEMP 36.5; O2SAT 100; BMI 19.1
--- NOTE | 2019-09-14 08:58 | WPDANESEPPF ---
Anes - Initial Pre Proc Eval Procedure: Operation Date: 09/14/19 09:30 Proposed Procedures p Esophagogastroduodenoscopy - Giovani Crawford MD Date/Time: 09/14/19 08:58 Surgeon: Giovani Crawford MD Pre Op Diagnosis: gastric ulcer Patient Data Age: 58 Gender: F Height: 5 ft 5 in Weight: 52 kg Last Vital Signs Temp 36.5 C 09/14/19 08:34 Pulse 88 09/14/19 08:34 Resp 14 09/14/19 08:34 BP 136/63 09/14/19 08:34 Pulse Ox 100 09/14/19 08:34 Allergies Allergy/AdvReac Type Severity Reaction Status Date / Time lorazepam Allergy Unknown Hallucinati Verified 09/14/19 08:33 ng Penicillins Allergy Unknown Anaphylactic Verified 09/14/19 08:33 Shock phenytoin Allergy Unknown Seizure Verified 09/14/19 08:33 Sulfa (Sulfonamide Allergy Unknown HIVES Verified 09/14/19 08:33 Antibiotics) aripiprazole AdvReac Intermediate PASSES OUT Verified 09/14/19 08:33 amitriptyline AdvReac Unknown CONFUSION Verified 09/14/19 08:33 prazosin AdvReac Unknown Confusion Verified 09/14/19 08:33 ropinirole [From Requip] AdvReac Unknown Muscle Verified 09/14/19 08:33 Spasms hydroxyzine [From Vistaril] AdvReac Unknown Verified 09/14/19 08:33 Home Medications Medication Instructions Recorded Confirmed Type amlodipine 2.5 mg PO DAILY 07/16/19 09/14/19 History atorvastatin 40 mg PO DAILY 07/16/19 09/14/19 History fluoxetine 80 mg PO DAILY 07/16/19 09/14/19 History fluticasone propionate 50 mcg INTRANASAL BID PRN 07/16/19 09/14/19 History lamotrigine 200 mg PO BID 07/16/19 09/14/19 History potassium chloride 10 meq PO DAILY 07/16/19 09/14/19 History tizanidine 4 mg PO QID 07/16/19 09/14/19 History topiramate 200 mg PO BID 07/16/19 09/14/19 History alprazolam 0.5 mg PO HS 07/17/19 09/14/19 History pantoprazole 40 mg PO BID 09/14/19 09/14/19 History Patient hx anesthesia problems: none Family hx anesthesia problems: none PMFSH Past Medical History Medical History (Updated 09/14/19 @ 08:58 by Manohar Mohr MD) Anxiety Depression Fibromyalgia GI bleed Hypertension Migraine Seizure disorder Social History Social History Smoking status: Never smoker Alcohol intake: never Substance use: never Gender identity (if verbalized by the patient): Female Spiritual care concerns: No Agree to blood products: Yes Anes - Eval Final PreProcedure Day of Procedure 09/14/19 08:58 Patient weight: normal Heart: regular rate and rhythm Lungs: clear to auscultation Airway: Mallampati scale class II Neurological: alert and oriented Last oral intake: >/= 8 hours ASA classification: III Emergent: no Anesthetic plan: proceed Anesthesia type and monitoring: general GIVS and standard monitoring Informed Consent: The patient's anesthetic plan and its attendant risks and benefits were discussed with the patient/family/POA. Questions were solicited and answers provided to the satisfaction of the patient/family/POA.
[2019-09-14] MEDS: LACTATED RINGERS 1,000 ML 150 ML IV CONT (09:03)
--- NOTE | 2019-09-14 09:03 | WPDGICN ---
Assessment and Plan Assessment and plan (1) History of gastric ulcer: Code(s): Z87.19 - Personal history of other diseases of the digestive system Status: Acute Assessment and Plan: Follow-up EGD advised at this time is been 2 months since diagnosis of gastric ulcer. Plan to continue to avoid nonsteroidal anti-inflammatory agents. Plan to continue PPI until EGD can be accomplished. (2) Epigastric abdominal pain: Code(s): R10.13 - Epigastric pain Status: Acute Assessment and Plan: Patient has continued intermittent nausea vomiting and abdominal pain. Pain is poorly localized. But appears related to oral intake of various foods. She recently was identified as having gastric ulcer. As she has been maintained on proton pump inhibitor therapy. Plan is for EGD to assess more thoroughly. Prior to considering change in therapy. GI Consult Note Consult date/time: 09/14/19 09:03 HPI: Rachele Wilkins is a 58 year old female Seen in evaluation at the request of Dr. Garcia. Patient continues to have nausea vomiting intermittent diffuse abdominal pain poorly localized. Pain is not always burning. Patient has a history of a gastric ulcer identified by endoscopy in August of 2019. She has been maintained on pantoprazole 40 mg p.o. b.i.d. with no specific change in symptoms. She denies any weight loss or bleeding. Her family history is noncontributory. Review of Systems Review of Systems: All systems reviewed & are unremarkable except as noted in HPI and below PMFSH Past Medical History Medical History Anxiety Depression Fibromyalgia GI bleed Hypertension Migraine Seizure disorder Family History Family History Father Bladder cancer Malignant neoplasm of prostate Mother Lung cancer Other Family history of malignant neoplasm Social History Social History Smoking status: Never smoker Alcohol intake: never Substance use: never Gender identity (if verbalized by the patient): Female Spiritual care concerns: No Agree to blood products: Yes Meds Home Medications and Allergies Home Medications Medication Instructions Recorded Confirmed Type amlodipine 2.5 mg PO DAILY 07/16/19 09/14/19 History atorvastatin 40 mg PO DAILY 07/16/19 09/14/19 History fluoxetine 80 mg PO DAILY 07/16/19 09/14/19 History fluticasone propionate 50 mcg INTRANASAL BID PRN 07/16/19 09/14/19 History lamotrigine 200 mg PO BID 07/16/19 09/14/19 History potassium chloride 10 meq PO DAILY 07/16/19 09/14/19 History tizanidine 4 mg PO QID 07/16/19 09/14/19 History topiramate 200 mg PO BID 07/16/19 09/14/19 History alprazolam 0.5 mg PO HS 07/17/19 09/14/19 History pantoprazole 40 mg PO BID 09/14/19 09/14/19 History Allergies Allergy/AdvReac Type Severity Reaction Status Date / Time lorazepam Allergy Unknown Hallucinati Verified 09/14/19 08:33 ng Penicillins Allergy Unknown Anaphylactic Verified 09/14/19 08:33 Shock phenytoin Allergy Unknown Seizure Verified 09/14/19 08:33 Sulfa (Sulfonamide Allergy Unknown HIVES Verified 09/14/19 08:33 Antibiotics) aripiprazole AdvReac Intermediate PASSES OUT Verified 09/14/19 08:33 amitriptyline AdvReac Unknown CONFUSION Verified 09/14/19 08:33 prazosin AdvReac Unknown Confusion Verified 09/14/19 08:33 ropinirole [From Requip] AdvReac Unknown Muscle Verified 09/14/19 08:33 Spasms hydroxyzine [From Vistaril] AdvReac Unknown Verified 09/14/19 08:33 Vital Signs Vital Signs - 24 hr 09/14/19 08:34 Temperature 36.5 C Pulse Rate 88 Respiratory Rate 14 Blood Pressure 136/63 Pulse Oximetry 100 Exam Narrative: Exam Narrative: Physical exam reveals patient to be alert. Vital signs are stable. HEENT exam unremarkable. Lungs are clear to auscultation and percussion. Heart is wit
[2019-09-14] MEDS: BENZOCAINE (*SP) 60 ML SPRAY CAN (HURRICAINE) 1 SPRAY MUCOUS MEM (10:07)
[2019-09-14 10:16] VITALS: BP 107/42; PULSE 70; RESP 21; O2SAT 100
[2019-09-14 10:26] VITALS: BP 101/56; PULSE 70; RESP 15; O2SAT 100
[2019-09-14 10:36] VITALS: BP 136/72; PULSE 72; RESP 21; O2SAT 100
== END 2019-09-14 10:55 | disposition home or self-care (01) ==
PROVIDERS: PCP Internal Medicine; Visit Provider Internal Medicine Gastroenterology
PROC: 0DJ08ZZ Inspection of Upper Intestinal Tract, Via Natural or Artificial Opening Endoscopic (ICD-10-PCS; CPT 43235; principal; 2019-09-14 09:30)
DX: K25.3 Acute gastric ulcer without hemorrhage or perforation (principal); K29.50 Unspecified chronic gastritis without bleeding; I10 Essential (primary) hypertension; G40.909 Epilepsy, unspecified, not intractable, without status epilepticus; M79.7 Fibromyalgia; F41.8 Other specified anxiety disorders
CPT/HCPCS: 43239; 88305; 88342; J2704; J7120

== ENCOUNTER 2019-11-01 17:12 | Emergency (ER) | payer MEDICARE, SELFPAY ==
--- NOTE | ~2019-11-01 | CT_ITS ---
EXAMINATION: CT abdomen pelvis w con DATE: 11/01/2019 20:08 INDICATION: Nausea, vomiting and epigastric pain. History of ulcers. TECHNIQUE: Computed tomography (CT) of the abdomen and pelvis was performed with 100 cc Omnipaque 350 intravenous contrast. The dose-length product was 290.10 mGy-cm. Automated exposure control and iter ative reconstruction technique were employed. COMPARISON: CT dated 07/16/2019 FINDINGS: Lung bases unremarkable. Heart size normal. No significant vascular abnormality. No lymphad enopathy. The liver, spleen, adrenal glands are unremarkable. There is an 8 mm hypodensity of the pancreatic german dy. There are small subcentimeter hypodensities of both kidneys, most likely benign. There are nonobs tructing right renal stones. Gallbladder is present. There is abnormal thickening of the pylorus and gastric antrum. Nonobstructive bowel gas pattern. No abnormal pelvic masses or fluid collections. No free air or free fluid. IMPRESSION: 1. Abnormal thickening of the gastric antrum and pylorus, suspicious for gastritis. 2:8 mm hypodensity of the pancreatic body. The differential diagnosis includes pseudocyst, intraducta l papillary mucinous neoplasm (IPMN), mucinous cystic neoplasm (MCN), and the less common serous cyst adenoma and neuroendocrine tumor. 3: Subcentimeter hypodensities of both kidneys, most likely benign. Consider correlation with ultraso und on a nonemergent basis. 4: Nonobstructing right nephrolithiasis. Reviewed, dictated and finalized at location A. IMPRESSION: 1. Abnormal thickening of the gastric antrum and pylorus, suspicious for gastri tis. 2:8 mm hypodensity of the pancreatic body. The differential diagnosis includes pseudocyst, intraductal papillary mucinous neoplasm (IPMN), mucinous cystic celena plasm (MCN), and the less common serous cystadenoma and neuroendocrine tumor. 3: Subcentimeter hypodensities of both kidneys, most likely benign. Consider co rrelation with ultrasound on a nonemergent basis. 4: Nonobstructing right nephrolithiasis.
--- NOTE | 2019-11-01 17:24 | ED.ABDPAIN ---
HPI - Abdominal Pain General Chief Complaint: Abdominal Pain Stated Complaint: stomach pain Time Seen by Provider: 11/01/19 17:24 Source: patient Mode of arrival: wheelchair Limitations: no limitations History of Present Illness HPI narrative: 59-year-old woman with a history of peptic ulcer disease diagnosed in July of 2019. She states that she took some family members to eat [place] 2 days ago and since then she has had severe epigastric pain. She states that she has had vomiting as well and it is contained some black/dark material but no blood. She states that she has had some black stools but states she is also taking iron pills. She has had no blood in her stools. Her last BM was yesterday. She states that she had an episode yesterday where she felt like she was going to pass out and had to lay down. She does not recall whether she had loss of consciousness. She denies shortness of breath, cough, rhinorrhea, fever, rash, dysuria, hematuria. MD elicited complaint: abdominal pain Pertinent past history: other ( peptic ulcer disease) Onset (ago): day(s) (2) Pain Consistency: constant Location: epigastric Severity: severe Quality: sharp Radiation: none Migration to: no migration Exacerbating factors: nothing Relieving factors: nothing Associated symptoms: nausea and vomiting Treatments prior to arrival: antacids ( PPIs as prescribed) Related Data Home Medications Medication Instructions Recorded Confirmed amlodipine 2.5 mg PO DAILY 07/16/19 11/01/19 atorvastatin 40 mg PO DAILY 07/16/19 11/01/19 fluoxetine 80 mg PO DAILY 07/16/19 11/01/19 fluticasone propionate 50 mcg INTRANASAL BID PRN 07/16/19 11/01/19 lamotrigine 200 mg PO BID 07/16/19 11/01/19 potassium chloride 10 meq PO DAILY 07/16/19 11/01/19 tizanidine 4 mg PO QID 07/16/19 11/01/19 topiramate 200 mg PO BID 07/16/19 11/01/19 alprazolam 0.5 mg PO HS 07/17/19 11/01/19 pantoprazole 40 mg PO BID 09/14/19 11/01/19 Allergies Allergy/AdvReac Type Severity Reaction Status Date / Time lorazepam Allergy Unknown Hallucinati Verified 09/14/19 08:33 ng Penicillins Allergy Unknown Anaphylactic Verified 09/14/19 08:33 Shock phenytoin Allergy Unknown Seizure Verified 09/14/19 08:33 Sulfa (Sulfonamide Allergy Unknown HIVES Verified 09/14/19 08:33 Antibiotics) aripiprazole AdvReac Intermediate PASSES OUT Verified 09/14/19 08:33 amitriptyline AdvReac Unknown CONFUSION Verified 09/14/19 08:33 prazosin AdvReac Unknown Confusion Verified 09/14/19 08:33 ropinirole [From Requip] AdvReac Unknown Muscle Verified 09/14/19 08:33 Spasms hydroxyzine [From Vistaril] AdvReac Unknown Verified 09/14/19 08:33 Review of Systems Constitutional: Constitutional: Denies chills, Denies fatigue, Denies fever(s) and Reports weakness Eyes: Eyes: Denies change in vision and Denies photophobia ENT: Denies dysphagia, Denies nasal congestion and Denies sore throat Cardiovascular: Cardiovascular: Denies chest pain and Denies radiating jaw, neck or arm pain Respiratory: Respiratory: Denies cough, Denies dyspnea and Denies wheezing Gastrointestinal: Gastrointestinal: Reports abdominal pain, Denies bloating, Denies constipation, Denies diarrhea, Reports nausea and Reports vomiting Genitourinary: Genitourinary: Denies hematuria, Denies nocturia and Denies dysuria Musculoskeletal: Musculoskeletal: Denies back pain, Denies arthralgias and Denies joint swelling Integumentary/Breasts: Skin/Breast: Denies pruritus, Denies erythema and Denies rash Neurologic: Denies vertigo, Denies dizziness and Denies syncope Hematologic/Lymphatic: Hematologic/Lymphatic: Denies easy bleeding and Denies easy bruising Allergic/Immunologic: Allergic/Immunologic: Denies lip swelling and Denies wheezing PMFSH Past Medical History Medical History Anxiety Depression Fibromyalgia GI bleed Hypertension Migraine Seizure disorder Surgical Histo
[2019-11-01 17:25] VITALS: BP 182/98; PULSE 94; RESP 17; TEMP 36.8; O2SAT 100
--- NOTE | 2019-11-01 17:34 | ECG_ITS ---
Measurements Intervals [place] Rate: 91 P: 63 [place]: 148 QRS: 72 QRSD: 96 T: 44 QT: 357 QTc: 440 Interpretive Statements SINUS RHYTHM INCOMPLETE RIGHT BUNDLE BRANCH BLOCK BASELINE ARTIFACT- II, III, AVL, AVF BORDERLINE ECG Electronically Signed On 11-01-2019 20:33:06 CDT by Vikas Marie D.O.
[2019-11-01] MEDS: ONDANSETRON INJ 4 MG/2 ML VIAL IV PUSH (17:45)
[2019-11-01] MEDS: SODIUM CHLORIDE 0.9% IV 1,000 ML 999 ML IV CONT (17:46)
[2019-11-01] MEDS: HYDROmorphone HCL 2 MG/ML VIAL 0.5 MG IV PUSH ×2 (17:48→19:09)
[2019-11-01] MEDS: PANTOPRAZOLE SODIUM IV 40 MG VIAL IV PUSH (17:49)
[2019-11-01 17:53] LABS: Add Urine Microscopic? YES; Appearance Urine Cloudy (Clear); Basophils Absolute Auto 0.04 K/mm3 (0.00-0.10); Basophils Percent Auto 0.5 % (0.0-1.0); Bilirubin Urine Negative (Negative); Blood Urine Negative (Negative); Color Urine Yellow (Yellow); Eosinophils Absolute Auto 0.13 K/mm3 (0.02-0.50); Eosinophils Percent Auto 1.8 % (1.0-6.0); Glucose Urine UA Negative (Negative); Hematocrit 22.8 % (35.0-49.0); Hemoglobin 7.2 g/dL (12.0-15.0); Immature Granulocyte Absolute 0.02 K/mm3 (0.00-0.00); Immature Granulocyte Percent A 0.3 % (0.0-0.0); Ketones Urine Negative (Negative); Leukocyte Esterase Ur Negative LEU/UL (Negative); Lymphocytes Absolute Auto 2.47 K/mm3 (1.10-4.50); Lymphocytes Percent Auto 33.6 % (18.0-42.0); Mean Corpuscular HGB Conc 31.6 g/dL (32.0-36.0); Mean Corpuscular Hemoglobin 27.9 pg (27.0-31.0); Mean Corpuscular Volume 88.4 fL (78.0-102.0); Mean Platelet Volume 10.7 fl (9.2-11.8); Monocytes Absolute Auto 0.43 K/mm3 (0.10-0.90); Monocytes Percent Auto 5.9 % (2.0-11.0); Neutrophils Absolute Auto 4.3 K/mm3 (1.7-7.2); Neutrophils Percent Auto 57.9 % (50.0-70.0); Nitrate Urine Negative (Negative); Platelet Count Result 203 K/mm3 (150-420); Protein Urine Negative (Negative); Red Blood Count 2.58 M/mm3 (4.20-5.40); Red Cell Distribution Width 14.1 % (11.6-14.4); Urobilinogen Urine 0.2 mg/dL (0.2-1.0); White Blood Count 7.4 K/mm3 (4.8-10.8)
[2019-11-01 18:00] LABS: Amorphous Sediment Urine Moderate; Bacteria Urine 3+ /hpf; RBC Urine 0-2 /hpf (0-2); Squamous Epithelial Cell Urine None seen /hpf (Few); WBC Urine 0-3 /hpf (0-3)
[2019-11-01 18:07] LABS: Occult Blood Negative (Negative)
[2019-11-01 18:07] LABS: Partial Thromboplastin Time 26.7 SEC (22.3-31.6); Prothrombin Time 10.6 Seconds (9.64-11.0)
[2019-11-01 18:12] LABS: Alanine Aminotransferase 20 U/L (14-59); Albumin Level 3.5 g/dL (3.4-5.0); Alkaline Phosphatase 70 U/L (46-116); Anion Gap 10.3 mmol/L (7-16); Aspartate Amino Transferase 22 U/L (15-37); Bilirubin,Total 0.1 mg/dL (0.00-1.00); Blood Urea Nitrogen 36 mg/dL (7-18); Calcium 9.3 mg/dL (8.5-10.1); Carbon Dioxide 28 mmol/L (21-32); Chloride 108 mmol/L (98-108); Estimated Glomerular Filt Rate 44; Glucose 130 mg/dL (70-99); Lactic Acid Reflex 1.6 mmol/L (0.4-2.0); Lipase 257 U/L (73-393); Osmolality Calculated 304 mOsm/kg (285-295); Potassium 4.3 mmol/L (3.5-5.1); Sodium 142 mmol/L (136-145); Total Protein 6.9 g/dL (6.4-8.2)
[2019-11-01 18:13] LABS: Troponin I < 0.02 ng/mL (0.00-0.056)
[2019-11-01 19:28] VITALS: BP 166/92; PULSE 85; O2SAT 98
--- NOTE | 2019-11-01 20:25 | PC.NURSE ---
CALL PLACED TO [facility] FOR POSSIBLE TRANSFER
--- NOTE | 2019-11-01 21:10 | PC.NURSE ---
DR CLIFTON RETURNS CALL
[2019-11-01 21:52] LABS: Gastric Negative Control Negative; Gastric Positive Control Positive; Occult Blood Gastric Fluid Negative
[2019-11-01 22:26] VITALS: BP 155/85; PULSE 86; RESP 17; O2SAT 98
== END 2019-11-01 22:50 | disposition short-term general hospital (02) ==
PROVIDERS: Emergency Provider Emergency Medicine; PCP Internal Medicine
DX: R10.13 Epigastric pain (principal); K86.89 Other specified diseases of pancreas; D62 Acute posthemorrhagic anemia
CPT/HCPCS: 36415; 74177; 80053; 81001; 82271; 82272; 83605; 83690; 83986; 84484; 85025; 85610; 85730; 93005; 96361; 96374; 96375; 96376; 99285; C9113; J1170; J2405; J7030; Q9965

== ENCOUNTER 2019-11-02 00:28 | Inpatient (IN) | payer MEDICARE, SELFPAY ==
[2019-11-01 23:20] VITALS: BP 153/83; PULSE 94; RESP 18; TEMP 36.6; O2SAT 99; BMI 19.5
[2019-11-02] VITALS (13 sets, daily range): BP systolic 136–165; BP diastolic 65–80; PULSE 74–99; RESP 16–22; TEMP 36.6–37.1; O2SAT 98–100
--- NOTE | 2019-11-02 00:38 | PM.IMHP ---
H&P: HPI History of Present Illness Chief complaint: Epigastric pain++ Narrative: This is a 59 year old female with known history of PUD and previous GI Bleed diagnosed in July of 2019 by GI, Dr. Crawford who presented to [facility] today with a complaint of severe epigastric abdominal pain, nausea, and vomiting since this past Tuesday after she ate [place] food with her family. She reports vomiting up dark black emesis but no bright red blood. She has also had a dark stool but is also on iron tablets. She has had dizziness and exertional shortness of breath. She also complains of generalized weakness and fatigue. The patient was evaluated at [facility] today and found to have had a hemoglobin that has dropped 3 points over the past two weeks. GI, Dr. Crawford was consulted by ER provider and we have been asked to admit the patient to the hospital for further care. Tonight she is complaining of ongoing severe epigastric pain. No other complaints. Her last endoscopy was 1 month ago but she doesn't remember the results. She denies any anticoagulant use or NSAIDS. Review of Systems Review of Systems: All systems reviewed & are unremarkable except as noted in HPI and below PMFSH Past Medical History Medical History Anxiety Depression Fibromyalgia GI bleed Hypertension Migraine Seizure disorder Surgical History Surgical History H/O brain surgery History of appendectomy History of carpal tunnel surgery History of tonsillectomy Hx of tubal ligation S/P laparotomy For adhesiolysis Family History Family History Father Bladder cancer Malignant neoplasm of prostate Mother Lung cancer Other Family history of malignant neoplasm Social History Social History Smoking status: Never smoker Alcohol intake: former Substance use: never Gender identity (if verbalized by the patient): Female Spiritual care concerns: No Agree to blood products: Yes Meds Home Medications and Allergies Home Medications Medication Instructions Recorded Confirmed Type amlodipine 2.5 mg PO DAILY 07/16/19 11/01/19 History atorvastatin 40 mg PO DAILY 07/16/19 11/01/19 History fluoxetine 80 mg PO DAILY 07/16/19 11/01/19 History fluticasone propionate 50 mcg INTRANASAL BID PRN 07/16/19 11/01/19 History lamotrigine 200 mg PO BID 07/16/19 11/01/19 History potassium chloride 10 meq PO DAILY 07/16/19 11/01/19 History tizanidine 4 mg PO QID 07/16/19 11/01/19 History topiramate 200 mg PO BID 07/16/19 11/01/19 History alprazolam 0.5 mg PO TID 07/17/19 11/01/19 History pantoprazole 40 mg PO BID 09/14/19 11/01/19 History Allergies Allergy/AdvReac Type Severity Reaction Status Date / Time lorazepam Allergy Unknown Hallucinati Verified 11/01/19 23:55 ng Penicillins Allergy Unknown Anaphylactic Verified 11/01/19 23:55 Shock phenytoin Allergy Unknown Seizure Verified 11/01/19 23:55 Sulfa (Sulfonamide Allergy Unknown HIVES Verified 11/01/19 23:55 Antibiotics) aripiprazole AdvReac Intermediate PASSES OUT Verified 11/01/19 23:55 amitriptyline AdvReac Unknown CONFUSION Verified 11/01/19 23:55 prazosin AdvReac Unknown Confusion Verified 11/01/19 23:55 ropinirole [From Requip] AdvReac Unknown Muscle Verified 11/01/19 23:55 Spasms hydroxyzine [From Vistaril] AdvReac Unknown Verified 11/01/19 23:55 Vital Signs Vital Signs - 24 hr 11/01/19 23:20 Temperature 36.6 C Pulse Rate 94 Respiratory Rate 18 Blood Pressure 153/83 H Pulse Oximetry 99 Exam Const: General: cooperative, alert, awake, in distress (epigastric pain++ ) moderate and other (pale appearing++ ) Nutritional Appearance: well nourished Orientation/consciousness: patient oriented x3 HENMT: Head: normal to inspection General nose e
[2019-11-02 00:51] LABS: Hematocrit 21.5 % (37.0-47.0)
[2019-11-02 01:00] LABS: Hemoglobin 6.7 g/dL (12.0-15.0)
[2019-11-02] MEDS: MORPHINE SULFATE 2 MG/ML INJ IV PUSH ×4 (01:04→17:45)
[2019-11-02] MEDS: ONDANSETRON INJ 4 MG/2 ML VIAL IV PUSH ×3 (01:04→18:36)
[2019-11-02] MEDS: SODIUM CHLORIDE 0.9% IV 1,000 ML 100 ML IV CONT ×2 (01:06→18:38)
--- NOTE | 2019-11-02 02:00 | PC.NURSE ---
pt refuses a 2nd IV. informed that this is needed for blood and other IV fluids. pt stated she wouldnt take the blood if that is so. will use existing PIV for blood. informed
[2019-11-02] MEDS: SODIUM CHLORIDE 0.9% IV 250 ML 30 ML IV CONT (05:04)
--- NOTE | 2019-11-02 08:38 | WPDANESEPPF ---
Anes - Initial Pre Proc Eval Procedure: Operation Date: 11/02/19 11:30 Proposed Procedures p Esophagogastroduodenoscopy - Giovani Crawford MD Date/Time: 11/02/19 08:38 Surgeon: Mohamud Steel MD Pre Op Diagnosis: Epigastric pain++ Patient Data Age: 59 Gender: F Height: 1.65 m Weight: 53.4 kg Last Vital Signs Temp 37.1 C 11/02/19 07:40 Pulse 82 11/02/19 07:40 Resp 16 11/02/19 07:40 BP 165/80 H 11/02/19 07:40 Pulse Ox 100 11/02/19 07:40 Allergies Allergy/AdvReac Type Severity Reaction Status Date / Time lorazepam Allergy Unknown Hallucinati Verified 11/02/19 10:49 ng Penicillins Allergy Unknown Anaphylactic Verified 11/02/19 10:49 Shock phenytoin Allergy Unknown Seizure Verified 11/02/19 10:49 Sulfa (Sulfonamide Allergy Unknown HIVES Verified 11/02/19 10:49 Antibiotics) aripiprazole AdvReac Intermediate PASSES OUT Verified 11/02/19 10:49 amitriptyline AdvReac Unknown CONFUSION Verified 11/02/19 10:49 prazosin AdvReac Unknown Confusion Verified 11/02/19 10:49 ropinirole [From Requip] AdvReac Unknown Muscle Verified 11/02/19 10:49 Spasms hydroxyzine [From Vistaril] AdvReac Unknown Verified 11/02/19 10:49 Home Medications Medication Instructions Recorded Confirmed Type amlodipine 2.5 mg PO DAILY 07/16/19 11/01/19 History atorvastatin 40 mg PO DAILY 07/16/19 11/01/19 History fluoxetine 80 mg PO DAILY 07/16/19 11/01/19 History fluticasone propionate 50 mcg INTRANASAL BID PRN 07/16/19 11/01/19 History lamotrigine 200 mg PO BID 07/16/19 11/01/19 History potassium chloride 10 meq PO DAILY 07/16/19 11/01/19 History tizanidine 4 mg PO QID 07/16/19 11/01/19 History topiramate 200 mg PO BID 07/16/19 11/01/19 History alprazolam 0.5 mg PO TID 07/17/19 11/01/19 History pantoprazole 40 mg PO BID 09/14/19 11/01/19 History Laboratory Tests 11/02/19 11/02/19 00:44 02:37 Hgb 6.7 g/dL L* g/dL (12.0-15.0) Hct 21.5 % L % (37.0-47.0) Blood Type A Positive Antibody Screen Negative Crossmatch See Detail Patient hx anesthesia problems: none Family hx anesthesia problems: none PMFSH Past Medical History Medical History Aneurysm Brain surgery MAR 1990 Anxiety Arthritis Back pain Depression Fibromyalgia Gastroesophageal reflux disease GI bleed Hypercholesterolemia Hypertension Migraine Multiple sclerosis Peripheral neuropathy Neuropathy of both arms,hands,legs,and feet-numbness and tingling PUD (peptic ulcer disease) Seizure disorder Surgical History Surgical History H/O brain surgery History of appendectomy History of carpal tunnel surgery History of tonsillectomy Hx of tubal ligation S/P laparotomy For adhesiolysis Family History Family History Father Bladder cancer Malignant neoplasm of prostate Mother Lung cancer Other Family history of malignant neoplasm Social History Social History Smoking status: Never smoker Alcohol intake: former Substance use: never Gender identity (if verbalized by the patient): Female Spiritual care concerns: No Agree to blood products: Yes Anes - Eval Final PreProcedure Day of Procedure 11/02/19 08:38 Patient weight: normal Heart: regular rate and rhythm Lungs: clear to auscultation and normal air movement Airway: Mallampati scale class II Neurological: alert and oriented Last oral intake: >/= 8 hours ASA classification: III Emergent: no Anesthetic plan: proceed Anesthesia type and monitoring: general GIVS Informed Consent: The patient's anesthetic plan and its attendant risks and benefits were discussed with the patient/family/POA. Questions were solicited and answers provided to the satisfaction of the patient/family/POA.
[2019-11-02 09:14] LABS: Basophils Absolute Auto 0.1 K/mm3 (0.0-0.1); Basophils Percent Auto 0.7 % (0.2-1.2); Eosinophils Absolute Auto 0.1 K/mm3 (0-0.3); Hematocrit 28.1 % (37.0-47.0); Hemoglobin 9.1 g/dL (12.0-15.0); Immature Granulocyte Absolute 0.02 K/mm3 (0.00-0.031); Immature Granulocyte Percent A 0.3 % (0-0.5); Lymphocytes Absolute Auto 2.24 K/mm3 (0.9-3.2); Lymphocytes Percent Auto 32.4 % (18.3-44.2); Mean Corpuscular HGB Conc 32.4 g/dl (32-36); Mean Corpuscular Volume 86.5 fl (80-100); Mean Platelet Volume 11.3 fl (7.4-10.4); Monocytes Absolute Auto 0.5 K/mm3 (0.1-0.6); Monocytes Percent Auto 7.1 % (2.6-8.5); Neutrophils Percent Auto 57.5 % (45.5-73.1); Platelet Count Result 212 k/mm3 (150-375); Red Blood Count 3.25 M/mm3 (4.2-5.4); Red Cell Distribution Width 14.5 % (11.5-14.5); White Blood Count 6.9 K/mm3 (4.5-10.0)
[2019-11-02 09:25] LABS: Anion Gap 8.6 mmol/L (7-16); Blood Urea Nitrogen 22 mg/dL (7-17); Calcium 8.9 mg/dL (8.4-10.2); Carbon Dioxide 25 mmol/L (22-30); Chloride 107 mmol/L (98-107); Estimated CRCL calculation 54 ml/min; Estimated Glomerular Filt Rate > 60; Glucose 112 mg/dL (65-105); Magnesium 1.9 mg/dL (1.6-2.3); Potassium 3.6 mmol/L (3.4-5.0); Sodium 137 mmol/L (137-145)
--- NOTE | 2019-11-02 09:53 | WPDGICN ---
Assessment and Plan Assessment and plan (1) History of gastric ulcer: Code(s): Z87.19 - Personal history of other diseases of the digestive system Status: Acute Assessment and Plan: Patient known to have gastric ulcer by endoscopy in July again in September of this year. Because of ongoing pain and question of GI blood loss an EGD will be performed today. Patient should avoid nonsteroidal anti-inflammatory agents of bland diet is encouraged. Continued use of pantoprazole 40 mg p.o. b.i.d.. Depending on results of endoscopy adding Carafate may be of some benefit. I am serum gastrin level will also be obtained to rule out ZE syndrome. (2) Epigastric pain: Code(s): R10.13 - Epigastric pain Status: Acute (3) PUD (peptic ulcer disease): Code(s): K27.9 - Peptic ulcer, site unspecified, unspecified as acute or chronic, without hemorrhage or perforation Status: Acute GI Consult Note Consult date/time: 11/02/19 09:53 HPI: Rachele Wilkins is a 59 year old female Seen in evaluation at the [facility] emergency room. Patient transferred [facility] for further medical care. Patient reports rather severe epigastric pain. pain is been present and worsening over the last week. She has a recent history of gastric ulcer initially identified after bleeding in July of 2019. She developed recurrent bleeding with pain and 1 month ago underwent an EGD at [facility] with persistent multiple gastric ulcers. She did well until this last week when pain became rather intense prompting her to go to the emergency room. She does report an episode of emesis that was somewhat dark in nature. Her stools have been dark since starting iron therapy recently. Her hemoglobin approximately 6-1/2 is been essentially in this range except for briefly after transfusion upon review of old records. Patient denies nonsteroidal anti-inflammatory agent use. Her family history is noncontributory in regards to ulcer disease. Review of Systems Review of Systems: All systems reviewed & are unremarkable except as noted in HPI and below PMFSH Past Medical History Medical History Aneurysm Brain surgery MAR 1990 Anxiety Arthritis Back pain Depression Fibromyalgia Gastroesophageal reflux disease GI bleed Hypercholesterolemia Hypertension Migraine Multiple sclerosis Peripheral neuropathy Neuropathy of both arms,hands,legs,and feet-numbness and tingling PUD (peptic ulcer disease) Seizure disorder Surgical History Surgical History H/O brain surgery History of appendectomy History of carpal tunnel surgery History of tonsillectomy Hx of tubal ligation S/P laparotomy For adhesiolysis Family History Family History Father Bladder cancer Malignant neoplasm of prostate Mother Lung cancer Other Family history of malignant neoplasm Social History Social History Smoking status: Never smoker Alcohol intake: former Substance use: never Gender identity (if verbalized by the patient): Female Spiritual care concerns: No Agree to blood products: Yes Meds Home Medications and Allergies Home Medications Medication Instructions Recorded Confirmed Type amlodipine 2.5 mg PO DAILY 07/16/19 11/01/19 History atorvastatin 40 mg PO DAILY 07/16/19 11/01/19 History fluoxetine 80 mg PO DAILY 07/16/19 11/01/19 History fluticasone propionate 50 mcg INTRANASAL BID PRN 07/16/19 11/01/19 History lamotrigine 200 mg PO BID 07/16/19 11/01/19 History potassium chloride 10 meq PO DAILY 07/16/19 11/01/19 History tizanidine 4 mg PO QID 07/16/19 11/01/19 History topiramate 200 mg PO BID 07/16/19 11/01/19 History alprazolam 0.5 mg PO TID 07/17/19 11/01/19 History pantoprazole 40 mg PO BID 09/02
--- NOTE | 2019-11-02 10:40 | PC.NURSE ---
To GI Lab via [facility].
[2019-11-02] MEDS: LACTATED RINGERS 1,000 ML 150 ML IV CONT (10:53)
[2019-11-02] MEDS: BENZOCAINE (*SP) 60 ML SPRAY CAN (HURRICAINE) 1 SPRAY MUCOUS MEM (11:53)
--- NOTE | 2019-11-02 12:37 | PC.NURSE ---
Back from GI Lab via stretcher.
[2019-11-02 13:04] LABS: Hematocrit 27.3 % (37.0-47.0); Hemoglobin 8.7 g/dL (12.0-15.0)
[2019-11-02 13:17] LABS: Lipase 76 U/L (23-300)
--- NOTE | 2019-11-02 13:40 | PM.IMPN ---
Progress Note: A&P Assessment and Plan (1) Symptomatic anemia: Code(s): D64.9 - Anemia, unspecified Status: Acute Assessment and Plan: Hgb 6.7 on arrival and she received 1 unit packed RBC early this morning. Acute blood loss on chronic iron deficiency; acute loss may be related to gastric ulcer - appreciate GI input. Monitor H&H and transfuse PRN. She notes that she is supposed to begin iron infusions at her PCPs office this coming week. (2) PUD (peptic ulcer disease): Code(s): K27.9 - Peptic ulcer, site unspecified, unspecified as acute or chronic, without hemorrhage or perforation Status: Acute Assessment and Plan: Suspect symptoms may be related to gastric ulcer. EGD today by Dr Crawford revealed acute gastric ulcers in the antrum, biopsies obtained. Continue PPI. (3) Hypertension: Qualifiers: Hypertension type: unspecified Qualified Code(s): I10 - Essential (primary) hypertension Code(s): I10 - Essential (primary) hypertension Status: Chronic Assessment and Plan: BPs elevated. Resume home Norvasc, PRN IV hydralazine as needed. Monitor BP and adjust treatment as needed. (4) Depression: Qualifiers: Depression Type: unspecified Qualified Code(s): F32.9 - Major depressive disorder, single episode, unspecified Code(s): F32.9 - Major depressive disorder, single episode, unspecified Status: Chronic Assessment and Plan: Resume fluoxetine PO. (5) Seizure disorder: Code(s): G40.909 - Epilepsy, unspecified, not intractable, without status epilepticus Status: Chronic Assessment and Plan: Resume home lamotrigine. Subjective Date/time seen: 11/02/19 1315 Interval history: Ms. Wilkins is a 59yo F admitted for GI bleed. She presented with epigastric pain, hematemesis and dark stools. She reports she had not taken her iron supplements recently. Today she is seen in follow up after EGD and reports feeling a bit better than when she came in. She has not vomited today. She denies chest pain or shortness of breath. Review of Systems Review of Systems: Narrative: Twelve systems were reviewed with pertinent positives and negatives as per HPI. Exam Narrative: Exam Narrative: General: Thin female resting supine in bed in no acute distress. HEENT: Normocephalic, EOMI, oral mucosa moist. Cardiovascular: Rate and rhythm are regular. Respiratory: Lungs clear to auscultation all peng. Non-labored breathing. Abdomen: Soft, non-distended, bowel sounds present. Mild epigastric tenderness to palpation without guarding. Extremities: Peripheral pulses intact. No edema. Neuro: No focal neurological deficits. Speech is clear. Objective Data Vital Signs Vital Signs: Last Vital Signs Temp 98.1 F 11/02/19 14:00 Pulse 74 11/02/19 14:00 Resp 16 11/02/19 14:00 BP 162/75 H 11/02/19 14:00 Pulse Ox 100 11/02/19 14:00 Intake/Output Intake/Output: Intake & Output 10/30/19 10/31/19 11/01/19 11/02/19 23:59 23:59 23:59 23:59 Intake Total 619 Output Total 600 Balance 19 Meds/Results Medications: Active Medications Generic Name Dose Route Start Last Admin Trade Name Freq PRN Reason Stop Dose Admin Fluticasone Propionate 1 spray 11/02/19 00:32 Flonase 0.05% Nasal [place] NASAL BID PRN Allergy Symptoms Sodium Chloride 1,000 mls @ 100 mls/hr 11/02/19 00:30 11/02/19 12:39 Normal Saline Iv IV CONT 100 mls/hr .Q10H LYUDMILA Infusion Morphine Sulfate 2 mg 11/02/19 00:31 11/02/19 10:24 Morphine Sulfate Inj IV PUSH 11/03/19 07:00 2 mg Q4H PRN Administration Pain Rated 7-10 Pantoprazole Sodium 40 mg 11/02/19 21:00 Protonix PO Q12HR LYUDMILA Sucralfate 1 gm 11/02/19 16:30 Carafate PO ACHS SC
[2019-11-02] MEDS: amLODIPine BESYLATE 2.5 MG TABLET PO (17:20)
[2019-11-02] MEDS: TIZANIDINE HCL 4 MG TABLET PO ×2 (17:20→21:35)
[2019-11-02] MEDS: SUCRALFATE 1 GM TABLET PO ×2 (17:24→21:32)
[2019-11-02 18:18] LABS: Hematocrit 25.4 % (37.0-47.0); Hemoglobin 8.2 g/dL (12.0-15.0)
[2019-11-02] MEDS: lamoTRIgine 100 MG TABLET 200 MG PO (21:32)
[2019-11-02] MEDS: TOPIRAMATE 100 MG TABLET 200 MG PO (21:32)
[2019-11-02] MEDS: PANTOPRAZOLE 40 MG TABLET PO (21:32)
[2019-11-03] MEDS: SUCRALFATE 1 GM TABLET PO ×4 (04:50→20:08)
[2019-11-03] MEDS: SODIUM CHLORIDE 0.9% IV 1,000 ML 100 ML IV CONT ×2 (04:50→17:07)
[2019-11-03] MEDS: MORPHINE SULFATE 2 MG/ML INJ IV PUSH ×2 (04:53→11:32)
[2019-11-03] MEDS: ONDANSETRON INJ 4 MG/2 ML VIAL IV PUSH ×2 (04:53→11:36)
[2019-11-03 06:00] VITALS: BP 161/72; PULSE 76; RESP 16; TEMP 36.3; O2SAT 99
[2019-11-03 06:34] LABS: Basophils Absolute Auto 0.1 K/mm3 (0.0-0.1); Basophils Percent Auto 0.9 % (0.2-1.2); Eosinophils Absolute Auto 0.1 K/mm3 (0-0.3); Eosinophils Percent Auto 2.3 % (0-4.4); Hematocrit 27.2 % (37.0-47.0); Hemoglobin 8.5 g/dL (12.0-15.0); Immature Granulocyte Absolute 0.01 K/mm3 (0.00-0.031); Immature Granulocyte Percent A 0.2 % (0-0.5); Lymphocytes Absolute Auto 1.86 K/mm3 (0.9-3.2); Lymphocytes Percent Auto 33.1 % (18.3-44.2); Mean Corpuscular HGB Conc 31.3 g/dl (32-36); Mean Corpuscular Hemoglobin 27.2 pg (26-34); Mean Corpuscular Volume 87.2 fl (80-100); Mean Platelet Volume 11.1 fl (7.4-10.4); Monocytes Absolute Auto 0.4 K/mm3 (0.1-0.6); Monocytes Percent Auto 6.6 % (2.6-8.5); Neutrophils Absolute Auto 3.2 K/mm3 (1.3-6.7); Neutrophils Percent Auto 56.9 % (45.5-73.1); Platelet Count Result 185 k/mm3 (150-375); Red Blood Count 3.12 M/mm3 (4.2-5.4); Red Cell Distribution Width 14.5 % (11.5-14.5); White Blood Count 5.6 K/mm3 (4.5-10.0)
[2019-11-03 07:01] LABS: Anion Gap 11.7 mmol/L (7-16); Blood Urea Nitrogen 12 mg/dL (7-17); Calcium 8.8 mg/dL (8.4-10.2); Carbon Dioxide 23 mmol/L (22-30); Chloride 106 mmol/L (98-107); Estimated CRCL calculation 54 ml/min; Estimated Glomerular Filt Rate > 60; Glucose 103 mg/dL (65-105); Potassium 3.7 mmol/L (3.4-5.0); Sodium 137 mmol/L (137-145)
[2019-11-03] MEDS: lamoTRIgine 100 MG TABLET 200 MG PO ×2 (08:53→20:07)
[2019-11-03] MEDS: FLUoxetine HCL 20 MG CAPSULE 80 MG PO (08:53)
[2019-11-03] MEDS: TOPIRAMATE 100 MG TABLET 200 MG PO ×2 (08:53→20:08)
[2019-11-03] MEDS: PANTOPRAZOLE 40 MG TABLET PO ×2 (08:54→20:07)
[2019-11-03] MEDS: amLODIPine BESYLATE 2.5 MG TABLET PO (08:54)
[2019-11-03] MEDS: TIZANIDINE HCL 4 MG TABLET PO ×4 (08:55→20:08)
--- NOTE | 2019-11-03 10:17 | P.PNAN_ITS ---
Anes - Prog Note Post-Op Date/Time: 11/03/19 10:17 Cardiovascular status: normal Respiratory status: normal Airway patency: baseline Mental status: baseline Post-Op hydration status: normal Vital Signs: Last Vital Signs Temp 36.3 C L 11/03/19 06:00 Pulse 76 11/03/19 06:00 Resp 16 11/03/19 06:00 BP 161/72 H 11/03/19 06:00 Pulse Ox 99 11/03/19 06:00 I/O: Intake & Output 11/02/19 11/03/19 11/03/19 23:59 07:59 15:59 Intake Total 1470 1400 Output Total 900 1600 Balance 570 -200 Laboratory Tests 11/03/19 06:10 11/03/19 06:10 11/02/19 11/02/19 11/02/19 12:44 12:44 18:04 WBC RBC Hgb 8.7 L 8.2 L Hct 27.3 L 25.4 L MCV MCH MCHC RDW Plt Count MPV Immature Gran % (Auto) Neut % (Auto) Lymph % (Auto) Benson % (Auto) Eos % (Auto) Baso % (Auto) Lymph # (Auto) Benson # (Auto) Eos # (Auto) Baso # (Auto) Abs Immat Gran (auto) Absolute Neuts (auto) Absolute Nucleated RBC Nucleated RBC % Sodium Potassium Chloride Carbon Dioxide Anion Gap BUN Creatinine Estim Creat Clear Calc Estimated GFR Glucose Calcium Lipase 76 Gastrin 11/03/19 11/03/19 11/03/19 06:10 06:10 08:23 WBC 5.6 RBC 3.12 L Hgb 8.5 L Hct 27.2 L MCV 87.2 MCH 27.2 MCHC 31.3 L RDW 14.5 Plt Count 185 MPV 11.1 H Immature Gran % (Auto) 0.2 Neut % (Auto) 56.9 Lymph % (Auto) 33.1 Benson % (Auto) 6.6 Eos % (Auto) 2.3 Baso % (Auto) 0.9 Lymph # (Auto) 1.86 Benson # (Auto) 0.4 Eos # (Auto) 0.1 Baso # (Auto) 0.1 Abs Immat Gran (auto) 0.01 Absolute Neuts (auto) 3.2 Absolute Nucleated RBC 0.0 Nucleated RBC % 0.0 Sodium 137 Potassium 3.7 Chloride 106 Carbon Dioxide 23 Anion Gap 11.7 BUN 12 D Creatinine 0.80 Estim Creat Clear Calc 54 Estimated GFR > 60 Glucose 103 Calcium 8.8 Lipase Gastrin Pending Patient Feedback: Patient satisfied with anesthetic care.
--- NOTE | 2019-11-03 10:46 | WPDGIPROGNO ---
Progress Note: A&P Additional Plan Patient alert in more comfortable today. However after eating she states pain recurred. Physical exam reveals her to be alert and anicteric. Lungs are clear. Heart without murmur. Abdomen bowel sounds are present soft mild midepigastric tenderness noted. Labs reveal a lipase to be normal. LFTs are normal. Hemoglobin 8.5, hematocrit 27.2, MCV 87. Impression 1. Gastric ulcer. This is recalcitrant to therapy. Has been present for several months. CT scan reveals thickening of the stomach around this area of the antrum. Plan is to continue high-dose Protonix. Add Carafate at this time. Avoid nonsteroidal anti-inflammatory agents. Histology pending from biopsy performed on Tuesday. Follow-up EGD will be needed at some point. Perhaps in 1-2 months. Richardson diet strongly encouraged. She may also need limitation to softer diet given the circumferential nature of this inflammation. 2. Pancreatic cyst. Suspected by CT scan. Not evident on CT scan several months ago. repeat lipase is normal. I suspect this is a nonspecific finding but follow-up CT scan may be warranted in 6 months. Patient anxious to go home but should delay going home until pain is more tolerable. As stated diet bland diet will be started. Subjective Date/time seen: 11/03/19 10:46 Objective Data Vital Signs Vital Signs: Vital Signs - 24 hr 11/02/19 10:50 11/02/19 12:05 11/02/19 12:15 Temperature 98.8 F Pulse Rate 83 92 83 Respiratory Rate 18 18 22 H Blood Pressure 163/69 H 150/74 H 157/74 H Pulse Oximetry 99 100 100 11/02/19 12:25 11/02/19 14:00 11/02/19 22:00 Temperature 98.1 F 98.1 F Pulse Rate 78 74 79 Respiratory Rate 22 H 16 16 Blood Pressure 160/74 H 162/75 H 151/65 H Pulse Oximetry 100 100 99 11/03/19 06:00 Temperature 97.4 F L Pulse Rate 76 Respiratory Rate 16 Blood Pressure 161/72 H Pulse Oximetry 99 Intake/Output Intake/Output: Intake & Output 10/31/19 11/01/19 11/02/19 11/03/19 23:59 23:59 23:59 23:59 Intake Total 2209 1520 Output Total 1500 1600 Balance 709 -80 Meds/Results Medications: Active Medications Generic Name Dose Route Start Last Admin Trade Name Freq PRN Reason Stop Dose Admin Acetaminophen 650 mg 11/03/19 10:40 Tylenol Tablet PO Q4H PRN Mild Pain (1-3) or Fever Alprazolam 0.5 mg 11/02/19 14:52 Xanax PO TID PRN Anxiety Amlodipine Besylate 2.5 mg 11/02/19 14:55 11/03/19 08:54 Norvasc PO 2.5 mg DAILY LYUDMILA Administration Fluoxetine HCl 80 mg 11/03/19 09:00 11/03/19 08:53 Prozac PO 80 mg DAILY LYUDMILA Administration Fluticasone Propionate 1 spray 11/02/19 00:32 Flonase 0.05% Nasal [place] NASAL BID PRN Allergy Symptoms Hydralazine HCl 10 mg 11/02/19 14:54 Apresoline Hcl Inj IV PUSH Q8H PRN Blood Pressure - High Sodium Chloride 1,000 mls @ 100 mls/hr 11/02/19 00:30 11/03/19 04:50 Normal Saline Iv IV CONT 100 mls/hr .Q10H LYUDMILA Administration Lamotrigine 200 mg 11/02/19 21:00 11/03/19 08:53 Lamictal PO 200 mg Q12HR LYUDMILA Administration Ondansetron HCl 4 mg 11/02/19 18:00 11/03/19 04:53 Zofran Inj IV PUSH 4 mg Q6H PRN Administration Nausea And Vomiting Pantoprazole Sodium 40 mg 11/02/19 21:00 11/03/19 08:54 Protonix PO 40 mg Q12HR LYUDMILA Administration Sucralfate 1 gm 11/02/19 16:30 11/03/19 04:50 Carafate PO 1 gm ACHS LYUDMILA Administration Tizanidine HCl 4 mg 11/02/19 17:00 11/03/19 08:55 Zanaflex PO 4 mg QID LYUDMILA Administration Topiramate 200 mg 11/02/19 21:00 11/03/19 08:53 Topamax PO 200 mg Q12HR LYUDMILA Administration Labs Labs: Laboratory Results - last 24 hr 11/02/19 11/02/19 11/02/19 12:44 12:44 18:04 WBC RBC Hgb 8.7 L 8.2 L Hct 27.3 L 25.4 L MCV MCH MCHC RDW Plt Count MPV Immature Gran % (Auto) Neut % (Auto) Lymph % (A
[2019-11-03 14:00] VITALS: BP 146/66; PULSE 85; RESP 18; TEMP 36.7; O2SAT 100
--- NOTE | 2019-11-03 14:55 | PM.IMPN ---
Progress Note: A&P Assessment and Plan (1) Symptomatic anemia: Code(s): D64.9 - Anemia, unspecified Status: Acute Assessment and Plan: Hgb 6.7 on arrival and she received 1 unit packed RBC 11/01. Suspect acute blood loss on chronic iron deficiency; acute loss may be related to gastric ulcer - appreciate GI input. H&H low but stable this AM; monitor H&H and transfuse PRN. She notes that she is supposed to begin iron infusions at her PCPs office this coming week. (2) PUD (peptic ulcer disease): Code(s): K27.9 - Peptic ulcer, site unspecified, unspecified as acute or chronic, without hemorrhage or perforation Status: Acute Assessment and Plan: Suspect symptoms are related to gastric ulcer. Improved today although she had more pain after breakfast. EGD 11/[address] Crawford revealed acute gastric ulcers in the antrum with surrounding edema causing some narrowing at the antrum, biopsies obtained. Continue PPI BID. [place], soft diet for today. (3) Hypertension: Qualifiers: Hypertension type: unspecified Qualified Code(s): I10 - Essential (primary) hypertension Code(s): I10 - Essential (primary) hypertension Status: Chronic Assessment and Plan: BPs elevated, may be secondary to pain. Continue home Norvasc, PRN IV hydralazine as needed. Monitor BP and adjust treatment as needed. (4) Depression: Qualifiers: Depression Type: unspecified Qualified Code(s): F32.9 - Major depressive disorder, single episode, unspecified Code(s): F32.9 - Major depressive disorder, single episode, unspecified Status: Chronic Assessment and Plan: Resume fluoxetine PO. (5) Seizure disorder: Code(s): G40.909 - Epilepsy, unspecified, not intractable, without status epilepticus Status: Chronic Assessment and Plan: Resume home lamotrigine. Subjective Date/time seen: 11/03/19 14:15 Interval history: Ms. Wilkins is a 59yo F admitted for GI bleed. She reports feeling better today but she did have increased abdominal pain and nausea following breakfast earlier this morning. No emesis. She denies any chest pain or shortness of breath. Review of Systems Review of Systems: Narrative: Twelve systems were reviewed with pertinent positives and negatives as per HPI. Exam Narrative: Exam Narrative: General: Thin female resting supine in bed in no acute distress. HEENT: Normocephalic, EOMI, oral mucosa moist. Cardiovascular: Rate and rhythm are regular. Respiratory: Lungs clear to auscultation all peng. Non-labored breathing. Abdomen: Soft, non-distended, bowel sounds present. Mild epigastric tenderness to palpation without guarding. Extremities: Peripheral pulses intact. No edema. Neuro: No focal neurological deficits. Speech is clear. Objective Data Vital Signs Vital Signs: Vital Signs - 24 hr 11/02/19 22:00 11/03/19 06:00 11/03/19 14:00 Temperature 98.1 F 97.4 F L 98.0 F Pulse Rate 79 76 85 Respiratory Rate 16 16 18 Blood Pressure 151/65 H 161/72 H 146/66 H Pulse Oximetry 99 99 100 Intake/Output Intake/Output: Intake & Output 10/31/19 11/01/19 11/02/19 11/03/19 23:59 23:59 23:59 23:59 Intake Total 2209 1520 Output Total 1500 1600 Balance 709 -80 Meds/Results Medications: Active Medications Generic Name Dose Route Start Last Admin Trade Name Freq PRN Reason Stop Dose Admin Acetaminophen 650 mg 11/03/19 10:40 Tylenol Tablet PO Q4H PRN Mild Pain (1-3) or Fever Alprazolam 0.5 mg 11/02/19 14:52 Xanax PO TID PRN Anxiety Amlodipine Besylate 2.5 mg 11/02/19 14:55 11/03/19 08:54 Norvasc PO 2.5 mg DAILY LYUDMILA Administration Fluoxetine HCl 80 mg 11/03/19 09:00 11/03/19 08:53 Prozac PO 80 mg DAILY LYUDMILA Administra
[2019-11-03] MEDS: ALPRAZolam 0.5 MG TABLET PO (20:07)
[2019-11-03] MEDS: ACETAMINOPHEN 325 MG TABLET 650 MG PO (20:07)
[2019-11-03 22:00] VITALS: BP 91/54; PULSE 70; RESP 16; TEMP 36.6; O2SAT 100
[2019-11-04 01:09] VITALS: BP 130/70; PULSE 85
[2019-11-04] MEDS: MORPHINE SULFATE 2 MG/ML INJ IV PUSH (01:12)
[2019-11-04] MEDS: SODIUM CHLORIDE 0.9% IV 1,000 ML 100 ML IV CONT ×2 (01:12→13:36)
[2019-11-04] MEDS: SUCRALFATE 1 GM TABLET PO ×2 (05:57→11:56)
[2019-11-04 06:00] VITALS: BP 147/74; PULSE 71; RESP 16; TEMP 36.5; O2SAT 100
[2019-11-04 06:20] LABS: Hematocrit 24.9 % (37.0-47.0); Hemoglobin 7.9 g/dL (12.0-15.0)
--- NOTE | 2019-11-04 08:29 | WPDGIPROGNO ---
Progress Note: A&P Additional Plan Patient alert and comfortable this morning. She reports no pain. Tolerating soft bland diet without difficulty. No signs of obvious GI bleeding. Physical exam reveals patient to be alert. Vital signs stable. HEENT exam unremarkable. She is anicteric. Lungs are clear. Heart without murmur. Abdomen bowel sounds present soft nontender with no organomegaly. Labs reveal hemoglobin 7.9 stable. Impression 1. Gastric ulcer. This is been resistant to therapy. Plan is to continue high-dose Protonix. Supplement with Carafate 4 times a day. Follow-up in my office in 2 weeks after discharge. A bland soft diet is tolerated currently. This should continue after discharge. 2. 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 This is a new finding. Follow-up CT scan at some point may be prudent. No specific therapy at this time. Lipase has been normal. No indication that the patient has had pancreatitis. Subjective Date/time seen: 11/04/19 08:29 Objective Data Vital Signs Vital Signs: Vital Signs - 24 hr 11/03/19 14:00 11/03/19 22:00 11/04/19 01:09 Temperature 98.0 F 97.9 F Pulse Rate 85 70 85 Respiratory Rate 18 16 Blood Pressure 146/66 H 91/54 L 130/70 Pulse Oximetry 100 100 11/04/19 06:00 Temperature 97.7 F Pulse Rate 71 Respiratory Rate 16 Blood Pressure 147/74 H Pulse Oximetry 100 Intake/Output Intake/Output: Intake & Output 11/01/19 11/02/19 11/03/19 11/04/19 23:59 23:59 23:59 23:59 Intake Total 2209 3020 2210 Output Total 1500 3100 1150 Balance 709 -80 1060 Meds/Results Medications: Active Medications Generic Name Dose Route Start Last Admin Trade Name Freq PRN Reason Stop Dose Admin Acetaminophen 650 mg 11/03/19 10:40 11/03/19 20:07 Tylenol Tablet PO 650 mg Q4H PRN Administration Mild Pain (1-3) or Fever Alprazolam 0.5 mg 11/02/19 14:52 11/03/19 20:07 Xanax PO 0.5 mg TID PRN Administration Anxiety Amlodipine Besylate 2.5 mg 11/02/19 14:55 11/03/19 08:54 Norvasc PO 2.5 mg DAILY LYUDMILA Administration Fluoxetine HCl 80 mg 11/03/19 09:00 11/03/19 08:53 Prozac PO 80 mg DAILY LYUDMILA Administration Fluticasone Propionate 1 spray 11/02/19 00:32 Flonase 0.05% Nasal [place] NASAL BID PRN Allergy Symptoms Hydralazine HCl 10 mg 11/02/19 14:54 Apresoline Hcl Inj IV PUSH Q8H PRN Blood Pressure - High Sodium Chloride 1,000 mls @ 80 mls/hr 11/02/19 00:30 11/04/19 01:12 Normal Saline Iv IV CONT 100 mls/hr .[id number] LYUDMILA Administration Lamotrigine 200 mg 11/02/19 21:00 11/03/19 20:07 Lamictal PO 200 mg Q12HR LYUDMILA Administration Morphine Sulfate 2 mg 11/03/19 11:14 11/04/19 01:12 Morphine Sulfate Inj IV PUSH 2 mg Q4H PRN Administration Pain Rated 7-10 Ondansetron HCl 4 mg 11/02/19 18:00 11/03/19 11:36 Zofran Inj IV PUSH 4 mg Q6H PRN Administration Nausea And Vomiting Pantoprazole Sodium 40 mg 11/02/19 21:00 11/03/19 20:07 Protonix PO 40 mg Q12HR LYUDMILA Administration Sucralfate 1 gm 11/02/19 16:30 11/04/19 05:57 Carafate PO 1 gm ACHS LYUDMILA Administration Tizanidine HCl 4 mg 11/02/19 17:00 11/03/19 20:08 Zanaflex PO 4 mg QID LYUDMILA Administration Topiramate 200 mg 11/02/19 21:00 11/03/19 20:08 Topamax PO 200 mg Q12HR LYUDMILA Administration Labs Labs: Laboratory Results - last 24 hr 11/04/19 05:44 Hgb 7.9 L Hct 24.9 L
[2019-11-04] MEDS: amLODIPine BESYLATE 2.5 MG TABLET PO (08:51)
[2019-11-04] MEDS: FLUoxetine HCL 20 MG CAPSULE 80 MG PO (08:51)
[2019-11-04] MEDS: TIZANIDINE HCL 4 MG TABLET PO ×2 (08:51→13:37)
[2019-11-04] MEDS: PANTOPRAZOLE 40 MG TABLET PO (08:51)
[2019-11-04] MEDS: TOPIRAMATE 100 MG TABLET 200 MG PO (08:51)
[2019-11-04] MEDS: lamoTRIgine 100 MG TABLET 200 MG PO (08:51)
[2019-11-04] MEDS: ACETAMINOPHEN 325 MG TABLET 650 MG PO (11:55)
[2019-11-04 14:00] VITALS: BP 95/52; PULSE 79; RESP 16; TEMP 36.3; O2SAT 99
--- NOTE | 2019-11-04 14:53 | PM.DS ---
DS: Admitting Diagnosis Admitting Diagnosis Admitting Diagnosis: Anemia, unspecified DS: Discharge Diagnosis Discharge Diagnosis (1) Symptomatic anemia: Code(s): D64.9 - Anemia, unspecified Status: Acute Assessment and Plan: Date of Service 11/04/19 Ms. Wilkins is a 59yo F with history of chronic anemia, gastric ulcers, hypertension, depression and anxiety, and seizure disorder who presented in transfer from [facility] for evaluation of severe epigastric pain, nausea and vomiting coffee-ground emesis with Hgb 6.7 on arrival. She received 1 unit packed RBC. She was feeling in her normal state of health until eating a meal of [place] food a few days prior to arrival. Dr Crawford was consulted. She is known to Dr Crawford after having recently just been admitted for similar symptoms 1 month ago when EGD revealed multiple cratered ulcers in the antrum. Again this admission she underwent EGD by Dr Crawford which demonstrated gastric ulcers in the antrum again, now with some edema that was causing narrowing at the antrum. She was slowly advanced to a bland, soft diet. She was treated with protonix BID and carafate. Instructed to avoid NSAIDs. Her symptoms were improved and she was hemodynamically stable for discharge 11/04/19 with instructions to follow up with Dr Crawford in 2 weeks. She described her PCP was starting her on IV iron supplementation q2 weeks and has her first infusion at [facility] on Tuesday. She was given an order for repeat bloodwork (CBC) that she can have done the same day she goes to [place] to monitor her hemoglobin. Consultations: --GI - Dr Crawford Hgb 6.7 on arrival and she received 1 unit packed RBC 11/01. Suspect acute blood loss on chronic iron deficiency; acute loss may be related to gastric ulcer. H&H low but stable at discharge. She notes that she is supposed to begin iron infusions at her PCPs office this coming week. (2) PUD (peptic ulcer disease): Code(s): K27.9 - Peptic ulcer, site unspecified, unspecified as acute or chronic, without hemorrhage or perforation Status: Acute Assessment and Plan: Symptoms are improved and suspect are related to gastric ulcer. EGD 11/[address] Crawford revealed acute gastric ulcers in the antrum with surrounding edema causing some narrowing at the antrum, biopsies obtained. Continue PPI BID, carafate. [place], soft diet until she sees Dr Crawford in 2 weeks. (3) Hypertension: Qualifiers: Hypertension type: unspecified Qualified Code(s): I10 - Essential (primary) hypertension Code(s): I10 - Essential (primary) hypertension Status: Chronic Assessment and Plan: BPs intermittently elevated, likely secondary to pain. Maintained on her home Norvasc. (4) Depression: Qualifiers: Depression Type: unspecified Qualified Code(s): F32.9 - Major depressive disorder, single episode, unspecified Code(s): F32.9 - Major depressive disorder, single episode, unspecified Status: Chronic Assessment and Plan: Stable. Maintained on home fluoxetine PO. (5) Seizure disorder: Code(s): G40.909 - Epilepsy, unspecified, not intractable, without status epilepticus Status: Chronic Assessment and Plan: Maintained on home lamotrigine. No acute issues. DS: Summary Time Spent with Patient Time attestation: Total time spent providing and/or coordinating discharge services: 35 minutes. Exam Narrative: Exam Narrative: General: Thin female resting supine in bed in no acute distress. HEENT: Normocephalic, EOMI, oral mucosa moist. Cardiovascular: Rate and rhythm are regular. Respiratory: Lungs clear to auscultation all peng. Non-labored breathing. Abdomen: Soft, non-distended, bowel sounds present. Mild epigastric
[2019-11-07 05:39] LABS: Gastrin 130 pg/mL (<=100)
== END 2019-11-04 15:10 | disposition home or self-care (01) | DRG 378 ==
PROVIDERS: Internal Medicine Gastroenterology; Admitting Provider Family Medicine; PCP Internal Medicine; Visit Provider Physician Assistant
PROC: 0DJ08ZZ Inspection of Upper Intestinal Tract, Via Natural or Artificial Opening Endoscopic (ICD-10-PCS; CPT 43235; principal; 2019-11-02 11:30)
DX: K25.0 Acute gastric ulcer with hemorrhage (principal); K86.2 Cyst of pancreas; D62 Acute posthemorrhagic anemia; D50.9 Iron deficiency anemia, unspecified; F32.9 Major depressive disorder, single episode, unspecified; I10 Essential (primary) hypertension; G40.909 Epilepsy, unspecified, not intractable, without status epilepticus; G62.9 Polyneuropathy, unspecified; K21.9 Gastro-esophageal reflux disease without esophagitis; Z87.11 Personal history of peptic ulcer disease
CPT/HCPCS: 36415; 36430; 80048; 82941; 83690; 83735; 85014; 85018; 85025; 86850; 86900; 86901; 86923; 88305; 88342; A9270; C9113; J0131; J2270; J2405; J2704; J7030; J7050; J7060; J7120; P9016

== ENCOUNTER 2019-11-06 09:53 | Outpatient (CLI) | payer MEDICARE, SELFPAY ==
--- NOTE | ~2019-11-06 | MM_ITS ---
EXAMINATION: MM screening radha BI w toma HISTORY: Screening TECHNIQUE: Craniocaudal and mediolateral oblique 3-D tomosynthesis images were obtained and synthetic 2-D images were generated. CAD analysis was submitted and interpreted. COMPARISON: Comparison to multiple prior studies sequentially, with oldest reviewed study dated 12/18. BREAST PARENCHYMAL COMPOSITION: There are scattered areas of fibroglandular density. FINDINGS: There is no evidence of suspicious mass, calcification, or architectural distortion to sugg est malignancy in either breast. There has been no suspicious interval change. IMPRESSION: 1. No mammographic evidence of malignancy. 2. Recommend routine screening mammography in one year. BI-RADS Category 1: Negative Reviewed, dictated and finalized at location A.
[2019-11-06 10:12] LABS: Hematocrit 29.1 % (35.0-49.0); Hemoglobin 9.3 g/dL (12.0-15.0); Mean Corpuscular Hemoglobin 28.4 pg (27.0-31.0); Mean Corpuscular Volume 88.7 fL (78.0-102.0); Mean Platelet Volume 10.7 fl (9.2-11.8); Platelet Count Result 314 K/mm3 (150-420); Red Blood Count 3.28 M/mm3 (4.20-5.40); Red Cell Distribution Width 14.1 % (11.6-14.4); White Blood Count 6.7 K/mm3 (4.8-10.8)
[2019-11-06] MEDS: IRON SUCROSE COMPLEX 300 MG in SODIUM CHLORIDE 0.9% IV 250 ML 125 MG IVPB (11:07)
== END 2019-11-06 09:54 | disposition home or self-care (01) ==
PROVIDERS: PCP Internal Medicine; Visit Provider Physician Assistant
DX: D50.9 Iron deficiency anemia, unspecified (principal); Z12.31 Encounter for screening mammogram for malignant neoplasm of breast
CPT/HCPCS: 36415; 77063; 77067; 85027; 96365; 96366; J1756; J7050

== ENCOUNTER 2019-11-21 11:49 | Outpatient (CLI) | payer MEDICARE, SELFPAY ==
[2019-11-21] MEDS: IRON SUCROSE COMPLEX 300 MG in SODIUM CHLORIDE 0.9% IV 250 ML 125 MG IVPB (12:17)
[2019-11-21 12:20] VITALS: BP 142/64; PULSE 88; RESP 12; TEMP 36.9; O2SAT 99
--- NOTE | 2019-11-21 14:35 | PC.NURSE ---
Patient tolerated#2 of #3 q 2 week Venofer infusion well. Safe exit of hospital. #3 scheduled 12/06/2019 at noon.
== END 2019-11-21 11:50 | disposition home or self-care (01) ==
LOC: CHSTREATRM 11:51
PROVIDERS: PCP Internal Medicine; Visit Provider Internal Medicine
DX: D50.9 Iron deficiency anemia, unspecified (principal)
CPT/HCPCS: 96365; 96366; J1756; J7050

== ENCOUNTER 2019-12-06 09:19 | Outpatient (CLI) | payer MEDICARE, SELFPAY ==
[2019-12-06 09:46] VITALS: BP 110/63; PULSE 72; RESP 14; TEMP 36.6; O2SAT 97
[2019-12-06] MEDS: IRON SUCROSE COMPLEX 300 MG in SODIUM CHLORIDE 0.9% IV 250 ML 125 MG IVPB (10:03)
--- NOTE | 2019-12-06 12:27 | PC.NURSE ---
1000 Patient here for #3 of 3 Venofer infusions 2 weeks apart each. No concerns. Venofer administered. Tolerated well. 1200 Safe exit of hospital.
== END 2019-12-06 09:20 | disposition home or self-care (01) ==
PROVIDERS: PCP Internal Medicine; Visit Provider Internal Medicine
DX: D50.9 Iron deficiency anemia, unspecified (principal)
CPT/HCPCS: 96365; 96366; J1756; J7050

== ENCOUNTER 2019-12-26 02:01 | Outpatient (CLI) | payer MEDICARE, SELFPAY ==
[2019-12-26 18:40] LABS: SARS-CoV-2 RNA PCR Negative
== END 2019-12-26 02:02 | disposition home or self-care (01) ==
LOC: ANHCOVIDDT 02:02
PROVIDERS: PCP Internal Medicine; Visit Provider Internal Medicine Gastroenterology
DX: Z01.812 Encounter for preprocedural laboratory examination (principal); Z20.828 Contact with and (suspected) exposure to other viral communicable diseases
CPT/HCPCS: 87635; C9803; U0003

== ENCOUNTER 2019-12-28 00:41 | Day surgery (SDC) | payer MEDICARE, SELFPAY ==
[2019-12-24 10:56] VITALS: BMI 19.8
--- NOTE | 2019-12-28 06:36 | WPDANESEPPF ---
Anes - Initial Pre Proc Eval Procedure: Operation Date: 12/28/19 07:30 Proposed Procedures p Esophagogastroduodenoscopy - Giovani Crawford MD Date/Time: 12/28/19 06:36 Surgeon: Giovani Crawford MD Pre Op Diagnosis: gastric ulcer Patient Data Age: 59 Gender: F Height: 5 ft 5 in Weight: 54 kg Allergies Allergy/AdvReac Type Severity Reaction Status Date / Time lorazepam Allergy Unknown Hallucinati Verified 12/28/19 06:22 ng Penicillins Allergy Unknown Anaphylactic Verified 12/28/19 06:22 Shock phenytoin Allergy Unknown Seizure Verified 12/28/19 06:22 Sulfa (Sulfonamide Allergy Unknown HIVES Verified 12/28/19 06:22 Antibiotics) aripiprazole AdvReac Intermediate PASSES OUT Verified 12/28/19 06:22 amitriptyline AdvReac Unknown CONFUSION Verified 12/28/19 06:22 prazosin AdvReac Unknown Confusion Verified 12/28/19 06:22 ropinirole [From Requip] AdvReac Unknown Muscle Verified 12/28/19 06:22 Spasms hydroxyzine [From Vistaril] AdvReac Unknown Verified 12/28/19 06:22 Home Medications Medication Instructions Recorded Confirmed Type amlodipine 2.5 mg PO DAILY 07/16/19 12/24/19 History atorvastatin 40 mg PO DAILY 07/16/19 12/24/19 History fluticasone propionate 50 mcg INTRANASAL BID PRN 07/16/19 12/24/19 History lamotrigine 200 mg PO BID 07/16/19 12/24/19 History potassium chloride 10 meq PO DAILY 07/16/19 12/24/19 History tizanidine 4 mg PO QID 07/16/19 12/24/19 History topiramate 200 mg PO BID 07/16/19 12/24/19 History alprazolam 0.5 mg PO TID 07/17/19 12/24/19 History pantoprazole 40 mg PO BID 09/14/19 12/24/19 History sucralfate 1 g PO ACHS 14 Days #56 tablet 11/04/19 12/24/19 Rx fluoxetine 80 mg PO DAILY 12/24/19 12/24/19 History Patient hx anesthesia problems: none Family hx anesthesia problems: none PMFSH Past Medical History Medical History Aneurysm Brain surgery MAR 1990 Anxiety Arthritis Back pain Depression Fibromyalgia Gastroesophageal reflux disease GI bleed Hypercholesterolemia Hypertension Migraine Multiple sclerosis Peripheral neuropathy Neuropathy of both arms,hands,legs,and feet-numbness and tingling PUD (peptic ulcer disease) Seizure disorder Surgical History Surgical History H/O brain surgery History of appendectomy History of carpal tunnel surgery History of tonsillectomy Hx of tubal ligation S/P laparotomy For adhesiolysis Family History Family History Father Bladder cancer Malignant neoplasm of prostate Mother Lung cancer Other Family history of malignant neoplasm Social History Social History Smoking status: Never smoker Alcohol intake: never Substance use: never Substance use type: does not use Living arrangements: with family Gender identity (if verbalized by the patient): Female Spiritual care concerns: No Agree to blood products: Yes Anes - Eval Final PreProcedure Day of Procedure 12/28/19 06:36 Patient weight: normal Heart: regular rate and rhythm Lungs: clear to auscultation Airway: Mallampati scale class II Neurological: alert and oriented Last oral intake: >/= 8 hours ASA classification: III Emergent: no Anesthetic plan: proceed Anesthesia type and monitoring: general GIVS and standard monitoring Informed Consent: The patient's anesthetic plan and its attendant risks and benefits were discussed with the patient/family/POA. Questions were solicited and answers provided to the satisfaction of the patient/family/POA.
[2019-12-28] MEDS: LACTATED RINGERS 1,000 ML 150 ML IV CONT (06:38)
[2019-12-28 06:39] VITALS: BP 171/87; PULSE 78; RESP 18; TEMP 36.6; O2SAT 100; BMI 20.5
--- NOTE | 2019-12-28 07:20 | WPDGICN ---
Assessment and Plan Assessment and plan (1) Gastric ulcer: Code(s): K25.9 - Gastric ulcer, unspecified as acute or chronic, without hemorrhage or perforation Status: Acute Assessment and Plan: Plan is for follow-up EGD because of poorly healing gastric ulcer. Patient has been maintained on pantoprazole 40 mg p.o. b.i.d. in addition to Carafate 4 times a day. Further recommendations will be given after endoscopy. (2) Aneurysm: Code(s): I72.9 - Aneurysm of unspecified site Status: Acute GI Consult Note Consult date/time: 12/28/19 07:20 HPI: Rachele Wilkins is a 59 year old female Seen in evaluation at the request of Dr. Garcia. patient has a history of a poorly healing gastric ulcer. Patient previously had stopped her Protonix and remained on Carafate this is subsequently been restarted. She states that she no longer has abdominal pain in general feels better she has had no bleeding her weight has stabilized. He she denies any recent use of nonsteroidal anti-inflammatory agents. Review of Systems Review of Systems: All systems reviewed & are unremarkable except as noted in HPI and below PMFSH Past Medical History Medical History Aneurysm Brain surgery MAR 1990 Anxiety Arthritis Back pain Depression Fibromyalgia Gastroesophageal reflux disease GI bleed Hypercholesterolemia Hypertension Migraine Multiple sclerosis Peripheral neuropathy Neuropathy of both arms,hands,legs,and feet-numbness and tingling PUD (peptic ulcer disease) Seizure disorder Surgical History Surgical History H/O brain surgery History of appendectomy History of carpal tunnel surgery History of tonsillectomy Hx of tubal ligation S/P laparotomy For adhesiolysis Family History Family History Father Bladder cancer Malignant neoplasm of prostate Mother Lung cancer Other Family history of malignant neoplasm Social History Social History Smoking status: Never smoker Alcohol intake: never Substance use: never Substance use type: does not use Living arrangements: with family Gender identity (if verbalized by the patient): Female Spiritual care concerns: No Agree to blood products: Yes Meds Home Medications and Allergies Home Medications Medication Instructions Recorded Confirmed Type amlodipine 2.5 mg PO DAILY 07/16/19 12/28/19 History atorvastatin 40 mg PO DAILY 07/16/19 12/28/19 History fluticasone propionate 50 mcg INTRANASAL BID PRN 07/16/19 12/28/19 History lamotrigine 200 mg PO BID 07/16/19 12/28/19 History potassium chloride 10 meq PO DAILY 07/16/19 12/28/19 History tizanidine 4 mg PO QID 07/16/19 12/28/19 History topiramate 200 mg PO BID 07/16/19 12/28/19 History alprazolam 0.5 mg PO TID 07/17/19 12/28/19 History pantoprazole 40 mg PO BID 09/14/19 12/28/19 History sucralfate 1 g PO ACHS 14 Days #56 tablet 11/04/19 12/28/19 Rx fluoxetine 80 mg PO DAILY 12/24/19 12/28/19 History Allergies Allergy/AdvReac Type Severity Reaction Status Date / Time lorazepam Allergy Unknown Hallucinati Verified 12/28/19 06:22 ng Penicillins Allergy Unknown Anaphylactic Verified 12/28/19 06:22 Shock phenytoin Allergy Unknown Seizure Verified 12/28/19 06:22 Sulfa (Sulfonamide Allergy Unknown HIVES Verified 12/28/19 06:22 Antibiotics) aripiprazole AdvReac Intermediate PASSES OUT Verified 12/28/19 06:22 amitriptyline AdvReac Unknown CONFUSION Verified 12/28/19 06:22 prazosin AdvReac Unknown Confusion Verified 12/28/19 06:22 ropinirole [From Requip] AdvReac Unknown Muscle Verified 12/28/19 06:22 Spasms hydroxyzine [From Vistaril] AdvReac Unknown Verified 12/28/19 06:22 Vital Signs Vital Signs - 24 hr 12/28/19 06:39 Temperature 97.9 F Pulse Rate 78
[2019-12-28 07:34] VITALS: BP 133/88; PULSE 81; RESP 15; O2SAT 100
[2019-12-28 07:44] VITALS: BP 130/75; PULSE 75; RESP 18; O2SAT 100
[2019-12-28 07:54] VITALS: BP 149/84; PULSE 72; RESP 16; O2SAT 100
== END 2019-12-28 08:20 | disposition home or self-care (01) ==
PROVIDERS: PCP Internal Medicine; Visit Provider Internal Medicine Gastroenterology
PROC: 0DJ08ZZ Inspection of Upper Intestinal Tract, Via Natural or Artificial Opening Endoscopic (ICD-10-PCS; CPT 43235; principal; 2019-12-28 07:30)
DX: Z09 Encounter for follow-up examination after completed treatment for conditions other than malignant neoplasm (principal); K25.3 Acute gastric ulcer without hemorrhage or perforation; K31.89 Other diseases of stomach and duodenum; K21.9 Gastro-esophageal reflux disease without esophagitis; I10 Essential (primary) hypertension; G35 Multiple sclerosis; G62.9 Polyneuropathy, unspecified; G40.909 Epilepsy, unspecified, not intractable, without status epilepticus; M79.7 Fibromyalgia; F41.8 Other specified anxiety disorders
CPT/HCPCS: 43239; 43245; 87081; C1726; J2704; J7120

== ENCOUNTER 2020-02-26 09:26 | Outpatient (CLI) | payer MEDICARE, SELFPAY ==
--- NOTE | ~2020-02-26 | XR_ITS ---
XR abdomen/kub 1V 02/26/2020 09:53 Indication: Acute right flank pain Procedure: KUB Comparison: 04/10/2012 Findings: There is a right renal stone. Bowel gas pattern is nonobstructive. Moderate colonic fecal l oading. There are surgical clips in the right pelvis. No acute osseous abnormality. Impression: 1: Right nephrolithiasis. Reviewed, dictated and finalized at location A. E SANDER Impression: 1: Right nephrolithiasis.
== END 2020-02-26 09:27 | disposition home or self-care (01) ==
PROVIDERS: PCP Internal Medicine
DX: R10.9 Unspecified abdominal pain (principal)
CPT/HCPCS: 74018

== ENCOUNTER 2020-02-27 07:58 | Outpatient (CLI) | payer MEDICARE, SELFPAY ==
--- NOTE | ~2020-02-27 | US_ITS ---
US retroperitoneal comp 02/27/2020 08:52 Procedure: Realtime transabdominal ultrasound of the kidneys and bladder. Indication: Right CVA tenderness. Leg pain for 2 weeks. Comparison: Ultrasound dated 01/21/[address] dated 11/01/2019 Findings: Renal echotexture is normal. There is mild right hydronephrosis. No renal masses or stones identified. Right kidney measures 8.8 cm. Left kidney measures 10.1 cm. Bladder is unremarkable. Impression: 1: Mild right hydronephrosis. Reviewed, dictated and finalized at location A. AL [employer] Impression: 1: Mild right hydronephrosis.
== END 2020-02-27 07:59 | disposition home or self-care (01) ==
PROVIDERS: PCP Internal Medicine
DX: R10.9 Unspecified abdominal pain (principal)
CPT/HCPCS: 76770

== ENCOUNTER 2020-07-01 15:42 | Outpatient (CLI) | payer MEDICARE, SELFPAY | END 2020-07-01 15:43 | disposition home or self-care (01) | LOC: CHSLAB 15:48 | PROVIDERS: PCP Internal Medicine; Visit Provider Specialist | DX: C44.529 Squamous cell carcinoma of skin of other part of trunk (principal) | CPT/HCPCS: 88305 ==

== ENCOUNTER 2020-10-23 09:21 | Outpatient (CLI) | payer MEDICARE, SELFPAY ==
--- NOTE | ~2020-10-23 | XR_ITS ---
XR hip BI wo pelvis DATE: 10/23/2020 09:54 INDICATION: Bilateral hip pain TECHNIQUE: AP and lateral views of each hip COMPARISON: None FINDINGS: Surgical clips are noted overlying the right pelvic area. No fracture or dislocation, avascular necrosis or bone destruction of either hip is detected. Hip benny nt spaces are symmetric and well preserved. IMPRESSION: Negative bilateral hips Reviewed, dictated and finalized at location A. IMPRESSION: Negative bilateral hips
--- NOTE | ~2020-10-23 | XR_ITS ---
XR lumbar spine 2-3V DATE: 10/23/2020 09:54 INDICATION: Low back pain, bilateral hip pain TECHNIQUE: AP, lateral, coned lateral lumbosacral views COMPARISON: 03/31/2019 MR lumbar spine 03/13/2019 lumbar spine FINDINGS: Normal alignment of the lumbar spine. No fracture or bone destruction or spondylolisthesis. There is moderate loss of interspace height at L1-2. There is minimal degenerative spurring at L1-2, L3-4. There is degenerative change at the apophyseal joints with minimal grade 1 anterolisthesis at L3-4. The sacroiliac joints are intact. Calcifications overlie the renal areas. Nephrolithiasis is not excluded. Multiple surgical clips are again noted overlying the right pelvic area. IMPRESSION: Mild degenerative changes of the lumbar spine Reviewed, dictated and finalized at location A.
== END 2020-10-23 09:22 | disposition home or self-care (01) ==
LOC: CHSIMG 09:23
PROVIDERS: PCP Internal Medicine; Visit Provider Internal Medicine
DX: M54.5 Low back pain (principal); M25.552 Pain in left hip; M25.551 Pain in right hip
CPT/HCPCS: 72100; 73521

== ENCOUNTER 2021-02-08 07:08 | Emergency (ER) | payer MEDICARE, SELFPAY ==
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
--- NOTE | ~2021-02-08 | XR_ITS ---
EXAMINATION: XR shoulder RT min 2V, XR humerus RT DATE: 02/08/2021 08:26 INDICATION: Right humeral pain after pushing a car TECHNIQUE: 1. AP internally and externally rotated, AP oblique externally rotated and transscapular Y views of t he right shoulder were obtained. 2. AP and lateral views of the right humerus were obtained. COMPARISON: Right clavicle radiographs dated 05/09/2018 FINDINGS: Interval healing of a prior lateral right clavicle fracture along with prominent heterotopic ossifica tion along the likely previously torn coracoclavicular ligament persistent mild widening of the corac oclavicular interval. Otherwise normal alignment at the right shoulder and right elbow. No acute fra cture.Mild cephalad subluxation of the humeral head with respect to the glenoid with narrowing of the subacromial space and mild narrowing of the superior glenoid humeral joint space. This could be cons istent with mild glenohumeral osteoarthritis and suggests possible rotator cuff tear. Acromioclavicul ar and elbow joint spaces are normal. Soft tissues are unremarkable. Right lung is clear no right ple ural effusion or pneumothorax. IMPRESSION: 1. Old healed lateral right clavicle fracture deformity. No acute osseous abnormality. 2. Mild right glenohumeral osteoarthritis and suggestion of possible right rotator cuff tear. Reviewed, dictated and finalized at location A. IAL NEEDS LIBRARIAN IMPRESSION: 1. Old healed lateral right clavicle fracture deformity. No acute osseous abnor mality. 2. Mild right glenohumeral osteoarthritis and suggestion of possible right rota tor cuff tear.
[2021-02-08 07:23] VITALS: BP 126/67; PULSE 87; RESP 16; TEMP 36.4; O2SAT 100
[2021-02-08] MEDS: KETOROLAC (*BKC) 60 MG/2 ML VIAL IM (08:00)
--- NOTE | 2021-02-08 08:50 | PC.NURSE ---
Arms ling applied to right arm. Pt tolerated well. States she is more comfortable with the sling on. PMS intact.
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
[2021-02-08] MEDS: MORPHINE SULFATE (*CRX) 4 MG/ML INJ IM (09:30)
[2021-02-08] MEDS: ONDANSETRON HCL ODT 4 MG TABLET PO (09:30)
[2021-02-08 09:53] VITALS: BP 128/56; PULSE 72; RESP 16; O2SAT 98
== END 2021-02-08 09:54 | disposition home or self-care (01) ==
PROVIDERS: Emergency Provider Emergency Medicine; PCP Internal Medicine
DX: S46.011A Strain of muscle(s) and tendon(s) of the rotator cuff of right shoulder, initial encounter (principal); S13.4XXA Sprain of ligaments of cervical spine, initial encounter; E78.00 Pure hypercholesterolemia, unspecified; I10 Essential (primary) hypertension; G40.909 Epilepsy, unspecified, not intractable, without status epilepticus
CPT/HCPCS: 72125; 73030; 73060; 96372; 99283; 99284; A4565; A9270; J1885; J2270

== ENCOUNTER 2021-03-04 12:15 | Outpatient (CLI) | payer MEDICARE, SELFPAY ==
--- NOTE | ~2021-03-04 | DEXA_ITS ---
Bone Density Report Name: Rachele Wilkins Age: 60 Sex: Female Ethnicity: White Date of : 1960 Indication: postmenopausal; screening for osteoporosis; prior fracture; Referring Provider: Uziel Garcia Study: Bone densitometry was performed. Exam Date: March 04, 2021 Accession number: [id number] Bone Density: Region BMD T-score Z-score Classification AP Spine(L1-L4) 1.046 0.0 1.6 Normal Femoral Neck (Left) 0.585 -2.4 -1.0 Osteopenia Total Hip (Left) 0.795 -1.2 -0.1 Osteopenia Femoral Neck (Right) 0.636 -1.9 -0.5 Osteopenia Total Hip (Right) 0.811 -1.1 0.0 Osteopenia Femoral Neck Mean 0.611 -2.1 -0.8 Osteopenia Total Hip Mean 0.803 -1.1 -0.1 Osteopenia World Health Organization criteria for BMD impression classify patients as: Normal (T-score at or above -1.0), Osteopenia (T-score between -1.0 and -2.5), or Osteoporosis (T-score at or below -2.5). 10-year Fracture Risk(1): Major Osteoporotic Fracture 17% Hip Fracture 3.3% Reported Risk Factors: [place] (), Neck BMD=0.585, BMI=20.0, previous fracture (1) FRAX(R) Version 3.08. Fracture probability calculated for an untreated patient. Fracture probability may be lower if the patient has received treatment. Previous Exams: Region Exam Age BMD T-score BMD Change BMD Change Date g/cm2 vs Baseline vs Previous AP Spine (L1-L4) 03/04/2021 60 1.046 0.0 -0.083 (-7.3%) -0.003 (-0.3%) 08/18/2018 57 1.049 0.0 -0.080 (-7.1%) -0.080 (-7.1%) 12/18/2012 52 1.129 0.7 *Denotes significance at 95% confidence level, LSC for AP Spine = 0.022 g/cm2 # Denotes dissimilar scan types or analysis methods Clinical Information Provided by Patient: Has had a low trauma fracture No regular weight bearing exercise Drinks caffeinated beverages Onset of menses at age 11 Number of children 1 Impression: The patient has low bone mass, based on the Left Femoral Neck T-score. The patient has risk factors, including: previous fracture. No significant bone loss was observed. Discussion: BONE DENSITY IS LOW AT ONE OR MORE SKELETAL SITES. This patient's lowest T-score is low at one or more skeletal sites. It meets the World Health Organization's (WHO) criteria for ?low bone mass? (T-score between -1.0 and -2.5). The patient's 10-year risk of fracture as calculated by FRAX is less than the threshold where pharmacological therapy is recommended by the National Osteoporosis Foundation (NOF). However, all treatment decisions require clinical
--- NOTE | ~2021-03-04 | MM_ITS ---
EXAMINATION: MM screening radha BI w toma HISTORY: Screening mammogram TECHNIQUE: Craniocaudal and mediolateral oblique 3-D tomosynthesis images were obtained and synthetic 2-D images were generated. CAD analysis was submitted and interpreted. COMPARISON: 11/2019, 06/14/2014 bilateral screening mammogram examinations BREAST PARENCHYMAL COMPOSITION: There are scattered areas of fibroglandular density. FINDINGS: There is no evidence of suspicious mass, calcification, or architectural distortion to sugg est malignancy in either breast. There has been no suspicious interval change. IMPRESSION: 1. No mammographic evidence of malignancy. 2. Recommend routine screening mammography in one year. BI-RADS Category 1: Negative Reviewed, dictated and finalized at location A. TRO OPTICAL ENGINEER
== END 2021-03-04 12:16 | disposition home or self-care (01) ==
PROVIDERS: PCP Internal Medicine; Visit Provider Internal Medicine
DX: M81.0 Age-related osteoporosis without current pathological fracture (principal); Z12.31 Encounter for screening mammogram for malignant neoplasm of breast
CPT/HCPCS: 77063; 77067; 77080

== ENCOUNTER 2021-11-06 13:21 | Outpatient (CLI) | payer MEDICARE, SELFPAY ==
--- NOTE | 2021-11-06 14:30 | ECHO_ITS ---
Patient Info Name: Rachele Wilkins Age: 61 years : 1960 Gender: Female Ht: 65 in Wt: 121 lbs BSA: 1.58 m2 HR: 60 bpm BP: 138 / 71 mmHg Technical Quality: Good Exam Date: 11/06/2021 1:18 PM Exam Location: [facility] Patient Status: Outpatient Admit Date: 11/06/2021 Staff Ordering Physician: Uziel Garcia MD Production Floater: Jelani Tirado RDCS, RT Attending Provider: Uziel Garcia MD Referring Physician: Jose SHOOK; Exam Type: CA echo doppler color flow Study Info Indications I49.9 - Cardiac arrhythmia, unspecified R06.00 - Dyspnea, unspecified Complete two-dimensional, color flow and Doppler transthoracic echocardiogram is performed. Strain analysis performed. Summary 1. Complete two-dimensional, color flow and Doppler transthoracic echocardiogram is performed. 2. Left ventricular chamber dimension is normal. 3. Left ventricular systolic function is normal, estimated at 60-65%. 4. The left ventricular diastolic function is normal. 5. E/e' 8 is minimally elevated. 6. Global longitudinal strain is normal at -18.8%. 7. The mitral valve has mildly calcified annulus. Left Ventricle E/e' 8 is minimally elevated. Global longitudinal strain is normal at -18.8%. Left ventricular chamber dimension is normal. Left ventricular systolic function is normal, estimated at 60-65%. The left ventricular diastolic function is normal. Right Ventricle Right ventricular systolic function is normal and with normal TAPSE 2.2 cm. Right ventricular chamber dimension is normal. Left Atria Left atrial chamber dimension is normal. Right Atria Right atrial chamber dimension is normal. Aortic Valve The aortic valve is trileaflet. There is no aortic valve stenosis. There is no aortic valve regurgitation. Pulmonic Valve There is no pulmonic regurgitation. Mitral Valve The mitral valve has mildly calcified annulus. There is no mitral valve stenosis. There is no mitral valve regurgitation. Tricuspid Valve There is no tricuspid valve regurgitation. Pericardium/Pleural There is no pericardial effusion. Inferior Vena Cava Normal inferior vena cava with >50% collapse upon inspiration consistent with normal right atrial pressure, 5 mmHg. Aorta The aortic root size at the sinus of Valsalva is normal. Left Ventricular Outflow Tract Name Value Normal LVOT 2D LVOT Diameter 1.9 cm LVOT Doppler LVOT Peak Velocity 118 cm/s LVOT Peak Gradient 6 mmHg LVOT Mean Gradient 3 mmHg LVOT VTI 25 cm LVOT VTI/AV VTI Ratio 0.8 LVOT Stroke Volume 72 ml Mitral Valve Name Value Normal MV Doppler MV Decel Douglas 252 cm/s2 MV PHT
== END 2021-11-06 13:22 | disposition home or self-care (01) ==
LOC: CHSIMG 13:22
PROVIDERS: PCP Internal Medicine; Visit Provider Internal Medicine
DX: R06.00 Dyspnea, unspecified (principal); I47.1 Supraventricular tachycardia
CPT/HCPCS: 93306

== ENCOUNTER 2021-11-10 06:59 | Outpatient (CLI) | payer MEDICARE, SELFPAY ==
--- NOTE | ~2021-11-10 | MR_ITS ---
EXAMINATION: MR hip LT wo con DATE: 11/10/2021 08:49 INDICATION: Chronic left hip pain. TECHNIQUE: Magnetic resonance imaging (MRI) of the left hip was performed without intravenous contras t. COMPARISON: Pelvis and hip radiographs 10/23/2020 FINDINGS: Bones/cartilage: Bone alignment is normal. No fracture. There is decreased femoral head/neck offset anterosuperiorly o n either side, which may be seen with femoral acetabular impingement. Left hip joint demonstrates par tial thickness cartilage loss posteriorly and tiny osteophytes. Labrum: There is a tear of left acetabular labrum. Fluid: There is no hip joint effusion. There is mild bilateral trochanteric bursitis. Soft tissues: The hamstring origins are normal. The iliopsoas tendons are normal. The gluteus medius tendons are no rmal. There is moderate mediastinal and mesenteric adenopathy bilaterally. IMPRESSION: 1. Mild left hip osteoarthritis. Reviewed, dictated and finalized at location A.
--- NOTE | ~2021-11-10 | XR_ITS ---
XR chest 2V DATE: 11/10/2021 07:20 INDICATION: Dyspnea. Supraventricular tachycardia. TECHNIQUE: 2 views COMPARISON: May 31, 2016 portable AP chest at 1737 hours FINDINGS: Normal heart size. No hilar or mediastinal enlargement. No pulmonary infiltrate or consolid ation, pleural effusion or pulmonary vascular congestion or pneumothorax. There is mild levoscoliosis of the thoracolumbar spine. IMPRESSION: No active cardiopulmonary disease Reviewed, dictated and finalized at location B.
--- NOTE | 2021-11-10 07:40 | ECG_ITS ---
Measurements Intervals [place] Rate: 114 P: MO: 0 QRS: 76 QRSD: 115 T: -25 QT: 314 QTc: 433 Interpretive Statements ATRIAL FLUTTER/TACHYCARDIA WITH RAPID VENTRICULAR RESPONSE RIGHT BUNDLE BRANCH BLOCK [120+ ms QRS DURATION, UPRIGHT V1, 40+ ms S IN I/aVL/V4/V5/V6] COMPARED TO ECG 11/01/2019 17:43:43 ATRIAL FLUTTER NOW PRESENT Electronically Signed On 11-10-2021 16:50:37 CDT by Avis Faulkner M.D.
== END 2021-11-10 07:00 | disposition home or self-care (01) ==
PROVIDERS: PCP Internal Medicine; Visit Provider Internal Medicine
DX: M25.552 Pain in left hip (principal); R06.00 Dyspnea, unspecified; I47.1 Supraventricular tachycardia
CPT/HCPCS: 71046; 73721; 93005; 93270

== ENCOUNTER 2021-11-10 09:31 | Emergency (ER) | payer MEDICARE, SELFPAY ==
[2021-11-10 09:40] VITALS: BP 137/90; PULSE 77; RESP 18; TEMP 36.4; O2SAT 97
[2021-11-10 09:45] VITALS: PULSE 77
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
--- NOTE | 2021-11-10 10:16 | ECG_ITS ---
Measurements Intervals [place] Rate: 103 P: 59 NE: 142 QRS: 62 QRSD: 97 T: 31 QT: 376 QTc: 494 Interpretive Statements SINUS TACHYCARDIA WITH A BRIEF RUN OF SVT INCOMPLETE RIGHT BUNDLE BRANCH BLOCK [90+ ms QRS DURATION, TERMINAL R IN V1/V2, 40+ ms S IN I/aVL/V4/V5/V6] ABNORMAL RHYTHM ECG COMPARED TO ECG 11/10/2021 08:58:16 SINUS RHYTHM HAS BEEN RESTORED Electronically Signed On 11-10-2021 16:51:21 CDT by Avis Faulkner M.D.
[2021-11-10 10:22] LABS: Basophils Absolute Auto 0.04 K/mm3 (0.00-0.10); Basophils Percent Auto 0.4 % (0.0-1.0); Eosinophils Absolute Auto 0.12 K/mm3 (0.02-0.50); Eosinophils Percent Auto 1.2 % (1.0-6.0); Hematocrit 38.9 % (35.0-49.0); Hemoglobin 12.4 g/dL (12.0-15.0); Immature Granulocyte Absolute 0.05 K/mm3 (0.00-0.00); Immature Granulocyte Percent A 0.5 % (0.0-0.0); Lymphocytes Absolute Auto 2.25 K/mm3 (1.10-4.50); Lymphocytes Percent Auto 22.9 % (18.0-42.0); Mean Corpuscular HGB Conc 31.9 g/dL (32.0-36.0); Mean Corpuscular Hemoglobin 30.1 pg (27.0-31.0); Mean Corpuscular Volume 94.4 fL (78.0-102.0); Mean Platelet Volume 11.2 fl (9.2-11.8); Monocytes Absolute Auto 0.61 K/mm3 (0.10-0.90); Monocytes Percent Auto 6.2 % (2.0-11.0); Neutrophils Absolute Auto 6.8 K/mm3 (1.7-7.2); Neutrophils Percent Auto 68.8 % (50.0-70.0); Platelet Count Result 257 K/mm3 (150-420); Red Blood Count 4.12 M/mm3 (4.20-5.40); Red Cell Distribution Width 12.6 % (11.6-14.4); White Blood Count 9.8 K/mm3 (4.8-10.8)
[2021-11-10 10:50] VITALS: PULSE 70
[2021-11-10 10:52] LABS: Alanine Aminotransferase 25 U/L (14-59); Albumin Level 3.9 g/dL (3.4-5.0); Alkaline Phosphatase 83 U/L (46-116); Anion Gap 13 mmol/L (8-16); Aspartate Amino Transferase 15 U/L (15-37); Bilirubin,Total 0.3 mg/dL (0.00-1.00); Blood Urea Nitrogen 32 mg/dL (7-18); Calcium 9.3 mg/dL (8.5-10.1); Carbon Dioxide 21 mmol/L (21-32); Chloride 107 mmol/L (98-108); Estimated CRCL calculation 33 ml/min; Estimated Glomerular Filt Rate 40; Glucose 87 mg/dL (70-99); Magnesium 2.3 mg/dL (1.8-2.4); Osmolality Calculated 297 mOsm/kg (285-295); Potassium 3.8 mmol/L (3.5-5.1); Sodium 141 mmol/L (136-145); Total Protein 7.3 g/dL (6.4-8.2); Troponin I 8.4 ng/L (0.00-60.4)
[2021-11-10 10:55] LABS: Thyroid Stimulating Hormone 1.47 uIU/mL (0.36-3.74)
[2021-11-10 11:12] LABS: NT Pro B Type Natriuretic Pept 173 pg/mL (0-125)
[2021-11-10 11:45] VITALS: PULSE 117
[2021-11-10 12:00] VITALS: BP 129/78; PULSE 85; RESP 16; TEMP 36.6; O2SAT 100
== END 2021-11-10 12:05 | disposition home or self-care (01) ==
PROVIDERS: Emergency Provider Emergency Medicine; PCP Internal Medicine
DX: I48.20 Chronic atrial fibrillation, unspecified (principal); K21.9 Gastro-esophageal reflux disease without esophagitis; E78.5 Hyperlipidemia, unspecified
CPT/HCPCS: 36415; 71046; 73721; 80053; 83735; 83880; 84443; 84484; 85025; 93005; 99284

== ENCOUNTER 2021-11-18 08:17 | Outpatient (CLI) | payer MEDICARE, SELFPAY | END 2021-11-18 08:18 | disposition home or self-care (01) | LOC: CHSCARD 08:20 | PROVIDERS: PCP Internal Medicine; Visit Provider Internal Medicine | DX: R06.00 Dyspnea, unspecified (principal); I47.1 Supraventricular tachycardia | CPT/HCPCS: 94060; 94726; 94729 ==

== ENCOUNTER 2021-11-26 08:55 | Outpatient (CLI) | payer MEDICARE, SELFPAY ==
--- NOTE | 2021-11-26 11:00 | NEURO_ITS ---
Impression: # Complains of numbness of left 4th and 5th fingers. # Evolving left Carpal Tunnel Syndrome. 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 Not localizing across the elbow. # Mildly neurogenic needle/EMG exam of left 1st DI and left ADM. Nerve Conduction Studies Anti Sensory Summary Table Stim Site NR Peak (ms) P-T Amp (?V) Site1 Site2 Delta-P (ms) Dist (cm) Domenic (m/s) Left Median Anti Sensory (2-3nd Digit) Wrist 4.1 50.4 Wrist 2-3nd Digit 4.1 14.0 34 Wrist 4.1 52.8 Wrist 2-3nd Digit 4.1 14.0 34 Left Radial Anti Sensory (Base 1st Digit) Wrist 2.6 37.7 Wrist Base 1st Digit 2.6 0.0 Left Ulnar Anti Sensory (5th Digit) Wrist 3.6 40.5 Wrist 5th Digit 3.6 14.0 39 Motor Summary Table Stim Site NR Onset (ms) O-P Amp (mV) Site1 Site2 Delta-0 (ms) Dist (cm) Domenic (m/s) Left Median Motor (Abd Poll Brev) Wrist 4.1 2.6 Elbow Wrist 5.5 27.0 49 Elbow 9.6 2.2 Left Ulnar Motor (Abd Dig Minimi) Wrist 3.0 7.7 A Elbow Wrist 6.3 28.0 44 A Elbow 9.3 6.1 B Elbow Wrist 6.1 20.0 33 B Elbow 9.1 3.8 F Wave Studies NR F-Lat (ms) L-R F-Lat (ms) Left Median (Mrkrs) (Abd Poll Brev) 30.04 Left Ulnar (Mrkrs) (Abd Dig Min) 31.22 EMG Side Muscle Nerve Root Ins Act Fibs Amp Dur Recrt Comment Left 1stDorInt Ulnar C8-T1 Nml Nml Nml >12ms Reduced Left Ext Indicis Radial (Post Int) C7-8 Nml Nml Nml Nml Nml Left Ext Digitorum Radial (Post Int) C7-8 Nml Nml Nml Nml Nml Left BrachioRad Radial C5-6 Nml Nml Nml Nml Nml Left PronatorTeres Median C6-7 Nml Nml Nml Nml Nml Left Abd Poll Brev Median C8-T1 Nml Nml Nml Nml Nml Left ABD Dig Min Ulnar C8-T1 Nml Nml Nml >12ms Reduced MTDD
== END 2021-11-26 08:56 | disposition home or self-care (01) ==
LOC: ANHNEURO 08:57
PROVIDERS: PCP Internal Medicine; Visit Provider Internal Medicine
DX: G56.22 Lesion of ulnar nerve, left upper limb (principal); G56.02 Carpal tunnel syndrome, left upper limb
CPT/HCPCS: 95886; 95909

== ENCOUNTER 2022-04-21 11:19 | Outpatient (CLI) | payer MEDICARE, SELFPAY ==
--- NOTE | 2022-04-21 12:00 | ECG_ITS ---
Rate 61 TN 149 QRSd 104 QT 412 QTc 417 --[place]-- P 69 QRS 80 T 58 SINUS RHYTHM INCOMPLETE RIGHT BUNDLE BRANCH BLOCK BORDERLINE T WAVE ABNORMALITY- ANTERIOR LEADS BASELINE ARTIFACT- I, III, AVL, AVF, V2-V3 BORDERLINE ECG COMPARED TO ECG 11/10/2021 10:20:16 SINUS RHYTHM NOW PRESENT Electronically Signed On 04-21-2022 12:03:26 SUBSTATION OPERATOR AUTOMATIC by Vikas HINSON
[2022-04-21 12:19] LABS: Anion Gap 9 mmol/L (8-16); Blood Urea Nitrogen 31 mg/dL (7-18); Calcium 9.2 mg/dL (8.5-10.1); Carbon Dioxide 24 mmol/L (21-32); Chloride 104 mmol/L (98-108); Estimated Glomerular Filt Rate 50; Glucose 88 mg/dL (70-99); Osmolality Calculated 289 mOsm/kg (285-295); Potassium 4.2 mmol/L (3.5-5.1); Sodium 137 mmol/L (136-145)
== END 2022-04-21 11:20 | disposition home or self-care (01) ==
LOC: CHSLAB 11:23
PROVIDERS: PCP Internal Medicine; Visit Provider Orthopaedic Surgery Hand Surgery
DX: M79.642 Pain in left hand (principal); I45.19 Other right bundle-branch block
CPT/HCPCS: 36415; 80048; 93005

== ENCOUNTER 2022-05-25 13:57 | Outpatient (RCR) | payer MEDICARE, SELFPAY ==
--- NOTE | 2022-05-25 15:13 | PTOPEVAL1 ---
Assessment and note entered by JT File, PT Evaluation Information Assessment Status Evaluation Diagnosis L achilles pain, L heel wound Subjective Information patient reports she has been managing an unhealed wound on the L heal. she reports she receiving debridement for what was assumed to be a wart and it has no grown to an open wound in the heel that is not healing. she is receiving wound care, but due to tightness and pain in the ankle is seeking skilled PT along with her wound care to improve her walking. she reports she has been unable to wear normal shoes and walk without limping. Reported Pain Level Pain Score 3: Self Report Assessment PT Clinical Summary mrs. moran is a 61 yo female who presents to skilled PT evaluation for treatment of L ankle tightness and achilles pain. she has an open wound healing on the posterior L heel. she arrives to therapy in a bandage covering the wound so the wound was unable to be assessed. however, she presents with signicant L ankle weakness, tightness, and decreased rom. she would benefit from skilled PT to addrees her objective/ functional deficits to return to her prior level functional activity performance/quality of life. Plan of Care Interventions Electrical Stimulation,Manual Therapy,Neuro Re- education,Patient/Caregiver Educati,Therapeutic Activities,Therapeutic Exercise PT Services Indicated Yes Treatment Frequency and 3x weekly for 12 visits Duration These treatments will address the objective and functional deficits as defined above. The patient will be advanced safely and appropriately in order for the patient to progress towards his/her prior level of function. Additional exercises will be introduced and as well as a comprehensive home exercise program upon discharge, if needed, ?to ensure carryover of functional gains achieved in the clinic. This treatment plan has been reviewed and agreement upon by the patient.
--- NOTE | 2022-06-16 09:04 | PTOPDC ---
Assessment and note entered by JT File, PT Evaluation Information Assessment Status Discharge Diagnosis L achilles pain, L heel wound Subjective Information patient reports she feels alright this date. she reports she did scrape her heel yesteday and has a little pain there, but no pain in the achilles or the gastroc. she reports she is very happy with her rom and condition of the ankle since starting therapy. Reported Pain Level Pain Score 2: Self Report Assessment PT Clinical Summary mrs. moran presents to skilled PT services for her 8th skilled therapy visit. as of this date, she has met about 90% of goals for skilled PT. she is ambulating with normal gait mechanics, and is not lacking in rom of the L ankle. she will DC skilled PT this date, and continue with HEP independent at home to maintain rom and flexibility improvements/further improve strength of the L ankle. patient is still a ways off from wearing normal tennis shoes. Plan of Care Treatment Frequency and DC to independent HEP Duration
== END 2022-06-16 13:42 | disposition home or self-care (01) ==
LOC: CHSPT 13:57
DX: R26.89 Other abnormalities of gait and mobility (principal); R60.0 Localized edema; I89.0 Lymphedema, not elsewhere classified; L91.0 Hypertrophic scar; L97.422 Non-pressure chronic ulcer of left heel and midfoot with fat layer exposed; M24.572 Contracture, left ankle; M25.572 Pain in left ankle and joints of left foot; M79.662 Pain in left lower leg
CPT/HCPCS: 97014; 97110; 97112; 97140; 97161; G0283

== ENCOUNTER 2022-11-15 10:40 | Outpatient (RCR) | payer MEDICARE, SELFPAY ==
--- NOTE | 2022-11-16 14:04 | PTOPEVAL1 ---
Assessment and note entered by Ollie [facility] Evaluation Information Assessment Status Evaluation Diagnosis functional decline, impaired gait, lower leg squamous cell carcinoma Onset 10/18/22 Subjective Information Pt. reports that she underwent surgery to place a skin graft on the left heel. She reports she has been usnig a scooter since 2 weeks after surgery. She reports that she has been informed to advance to a described flat foot WB ove rthe left leg. She reports she is having trouble with the transition. She has attempted to use a walker, but doesn't feel comfortable. She reports that prior to surgery she was able to drive short distances. She reports that she is not currently getting into the community because of difficulty with ambulation. She report she will attend doctor appointments, but that is the only reason she currently leaves the home. She reports that she currently has a pain patch and left heel pain is 3/10. She reports that her goal is to be able to ambulate without an AD as she did prior to surgery. Reported Pain Level Pain Score 3: Self Report Assessment PT Clinical Summary Pt. enters the clinic post skin graft of the left l.e. at the heel. She enters today for instruction regarding transfers and gait. She ambulates independently by the conclusion of treatment and demosntrated independence with all transfers prior to treatment. She does present with impaired gait and impaired ankle ROM on the left. At this time pt. will continue with walking in home with the walker. She returns to the doctor in 2 weeks, and anticipate being able to advance her WB and possibly initiate exercise for ankle mobility at this time. We will establish new goals based upon pt. status change at next treatment. Plan of Care Treatment Frequency and We will await further M.D. instruction regarding Duration initiation of more aggressive activities and advancing WB with ambulation. Anticipate pt. return in 2 weeks following her M.D. appointment. These treatments will address the objective and functional deficits as defined above. The patient will be advanced safely and appropriately in order for the patient to progress towards his/her prior level of function. Additional exercises will be introduced and as well as a comprehensive home exercise program upon discharge, if needed, ?to ensure carryover of functional gains achieved in the clinic. This treatment plan has been reviewed and
--- NOTE | 2022-11-16 14:05 | OPREHPOC ---
Outpatient Therapy Plan of Care This is a Multidisciplinary Plan of Care that may contain components documented by all disciplines (PT, OT, and ST.) PT Problem 1 PT Problem #1 Knowledge Deficit PT Goal 1 Goal Pt. will demonstrate independence with ambulation remaining gentle TTWB over the left l.e. with use of a wheeled walker. Progress Met
--- NOTE | 2022-11-19 16:33 | BUOTOPEVAL ---
Assessment and note entered by Aislinn Sharp OT Evaluation Information Assessment Status Evaluation Diagnosis R arm radial free flap to left heel Onset 08/2022 Subjective Information The patient reports pain at 4/10 as constant burning on R wrist. The patient reports numbness and tingling of R UE at anterior forearm. Reported Pain Level Pain Score 0,4: Self Report Pain Score 3: Self Report Assessment OT Clinical Summary edema mpain rom The patient is a 62 year old female who was referred to outpatient OT due to surgery on R forearm to transfer skin and blood vessels to heel of L LE. The patient previously had 0/10 pain, no edema, and WNL AROM and strength. The patient now demonstrates minimal edema, 6/10 pain with numbness and tingling at distal forearm, and limited AROM of wrist joint which affect her ability to perform daily tasks. The patient requires skilled OT to address these deficits and returnt to PLOF. Plan of Care Interventions Therapeutic Exercise,Manual Therapy,Neuro Re- education,Therapeutic Activities,Hot Pack/Cold Pack,Electrical Stimulation,Sensory Integrative Techn,Self-Care/Home Management,Ultrasound OT Services Indicated Yes Treatment Frequency and 1-2x/week for 10 visits. Duration These treatments will address the objective and functional deficits as defined above. The patient will be advanced safely and appropriately in order for the patient to progress towards his/her prior level of function. Additional exercises will be introduced and as well as a comprehensive home exercise program upon discharge, if needed, ?to ensure carryover of functional gains achieved in the clinic. This treatment plan has been reviewed and agreement upon by the patient.
--- NOTE | 2022-11-19 16:34 | BUOTOPEVAL ---
Assessment and note entered by Aislinn Sharp OT Evaluation Information Assessment Status Evaluation Diagnosis R arm radial free flap to left heel Onset 08/2022 Subjective Information The patient reports pain at 4/10 as constant burning on R wrist. The patient reports numbness and tingling of R UE at anterior forearm. Reported Pain Level Pain Score 0,4: Self Report Pain Score 3: Self Report Assessment OT Clinical Summary The patient is a 62 year old female who was referred to outpatient OT due to surgery on R forearm to transfer skin and blood vessels to heel of L LE. The patient previously had 0/10 pain, no edema, and WNL AROM and strength. The patient now demonstrates minimal edema, 6/10 pain with numbness and tingling at distal forearm, and limited AROM of wrist joint which affect her ability to perform daily tasks. The patient requires skilled OT to address these deficits and returnt to PLOF. Plan of Care Interventions Therapeutic Exercise,Manual Therapy,Neuro Re- education,Therapeutic Activities,Hot Pack/Cold Pack,Electrical Stimulation,Sensory Integrative Techn,Ultrasound OT Services Indicated Yes Treatment Frequency and 1-2x/week for 10 visits. Duration These treatments will address the objective and functional deficits as defined above. The patient will be advanced safely and appropriately in order for the patient to progress towards his/her prior level of function. Additional exercises will be introduced and as well as a comprehensive home exercise program upon discharge, if needed, ?to ensure carryover of functional gains achieved in the clinic. This treatment plan has been reviewed and agreement upon by the patient.
--- NOTE | 2022-12-17 07:16 | OPREHPOC ---
Outpatient Therapy Plan of Care This is a Multidisciplinary Plan of Care that may contain components documented by all disciplines (PT, OT, and ST.) PT Problem 1 PT Problem #1 Knowledge Deficit PT Goal 1 Goal Pt. will demonstrate independence with ambulation remaining gentle TTWB over the left l.e. with use of a wheeled walker. Target Visit 6 Progress Met PT Problem 2 PT Problem #2 Pain PT Goal 1 Goal Patient to report highest heel pain at 2/10 Target Visit 12 PT Problem 3 PT Problem #3 Impaired Strength PT Goal 1 Goal Patient to demonstrate 5/5 strength of B LE in order to return to stair navigation at PLOF Target Visit 12 PT Problem 4 PT Problem #4 Impaired Functional Mobil PT Goal 1 Goal 1. Patient to score 20% improve on LEFS 2. Patient to report ability to navigate stairs with no increase in pain 3. Patient to ambulate with no AD and complete 6 min walk test with no loss of balance 4. Patient to improve Tinetti balance score by 5 pts Target Visit 12 OT Problem 1 OT Problem #1 Knowledge Deficit OT Goal 1 Goal The patient will demonstrate 100% knowledge and return demonstration for UE HEP in order to perform exercises at home. Target Visit 10 OT Problem 2 OT Problem #2 Pain OT Goal 1 Goal The patient will demonstrate 0/10 pain in R UE per patient report to decrease discomfort during ADLs . Target Visit 10 OT Problem 3 OT Problem #3 Impaired Range of Motion OT Goal 1 Goal The patient will demonstrate full AROM of R hand composite fist and >15 degrees wrist flexion, >55 degrees wrist extension, >10 degrees radial deviation in order to perform self care tasks. Target Visit 10 OT Problem 4 OT Problem #4 Edema OT Goal 1 Goal The patient will demonstrate decreased edema of R UE by showing 15 cm circumference at distal wrist and 18 cm circumference of distal palmar crease in
--- NOTE | 2022-12-17 07:17 | PTOPEVAL1 ---
Assessment and note entered by Heather Harrell DPT Evaluation Information Assessment Status Evaluation Diagnosis functional decline, impaired gait Onset 10/18/22 Subjective Information Patient reports since her first visit she has improved gait. She has been using a cane for about a week but reports she is not steady and has had 2 falls. She reports she is unable to wear a shoe with a back for 6 months. She reports stair navigation causes increased pain. She reports she has not done many house hold tasks. She reports she just started driving last week. RTMD 12/22/22 Reported Pain Level Pain Score 0,0: Self Report Pain Score 0: Self Report Additional Pain Score Comments Pt. has no c/o pain. Assessment PT Clinical Summary Patient is a 62 year old female who presents to PT with L heel pain and difficulty walking following heel flap surgical procedure. Patient demonstrates decreased LE strength, decreased R ankle ROM, impaired gait and decreased balance indicated by Tinetti balance testing. Patient has difficulty with gait, stair navigation and completion of house hold tasks. Patient would benefit from skilled PT to address impairments and return to OF. Plan of Care Interventions Electrical Stimulation,Gait Training,Hot Pack/Cold Pack,Manual Therapy,Mechanical Traction,Neuro Re- education,Patient/Caregiver Educati,Therapeutic Activities,Therapeutic Exercise Treatment Frequency and 2x weekly for 12 visits Duration These treatments will address the objective and functional deficits as defined above. The patient will be advanced safely and appropriately in order for the patient to progress towards his/her prior level of function. Additional exercises will be introduced and as well as a comprehensive home exercise program upon discharge, if needed, ?to ensure carryover of functional gains achieved in the clinic. This treatment plan has been reviewed and agreement upon by the patient.
--- NOTE | 2023-01-26 10:55 | OPREHPOC ---
Outpatient Therapy Plan of Care This is a Multidisciplinary Plan of Care that may contain components documented by all disciplines (PT, OT, and ST.) PT Problem 1 PT Problem #1 Knowledge Deficit PT Goal 1 Goal Pt. will demonstrate independence with ambulation remaining gentle TTWB over the left l.e. with use of a wheeled walker. Target Visit 6 Progress Met PT Problem 2 PT Problem #2 Pain PT Goal 1 Goal Patient to report highest heel pain at 2/10 Target Visit 12 Progress Met PT Problem 3 PT Problem #3 Impaired Strength PT Goal 1 Goal Patient to demonstrate 5/5 strength of B LE in order to return to stair navigation at PLOF Target Visit 12 Progress Not Met PT Problem 4 PT Problem #4 Impaired Functional Mobil PT Goal 1 Goal 1. Patient to score 20% improve on LEFS 2. Patient to report ability to navigate stairs with no increase in pain 3. Patient to ambulate with no AD and complete 6 min walk test with no loss of balance 4. Patient to improve Tinetti balance score by 5 pts Target Visit 12 Progress Met OT Problem 1 OT Problem #1 Knowledge Deficit OT Goal 1 Goal The patient will demonstrate 100% knowledge and return demonstration for UE HEP in order to perform exercises at home. Target Visit 10 OT Problem 2 OT Problem #2 Pain OT Goal 1 Goal The patient will demonstrate 0/10 pain in R UE per patient report to decrease discomfort during ADLs . Target Visit 10 OT Problem 3 OT Problem #3 Impaired Range of Motion OT Goal 1 Goal The patient will demonstrate full AROM of R hand composite fist and >15 degrees wrist flexion, >55 degrees wrist extension, >10 degrees radial deviation in order to perform self care tasks. Target Visit 10 OT Problem 4 OT Problem #4 Edema OT Goal 1 Goal
--- NOTE | 2023-01-26 10:56 | PTOPDC ---
Assessment and note entered by JT File, PT Evaluation Information Assessment Status Discharge Diagnosis functional decline, impaired gait Onset 10/18/22 Subjective Information patient reports she feels Great today. she reports she has had no pain in the last week. she reports she is ready to be done with therapy today . Reported Pain Level Pain Score 0: Self Report Assessment PT Clinical Summary mrs. moran presents to skilled PT services for her 11th skilled PT visit. she has met all goals, except for L ankle strength as of this date. she has no pain, and is walkin with normal gait mechanics and no AD. she will DC skilled PT to independent HEP today.
== END 2023-01-05 14:15 | disposition home or self-care (01) ==
LOC: CHSPT 10:40
DX: C44.729 Squamous cell carcinoma of skin of left lower limb, including hip (principal)
CPT/HCPCS: 97110; 97112; 97116; 97140; 97150; 97161; 97166; 97530

== ENCOUNTER 2023-03-21 15:15 | Outpatient (CLI) | payer MEDICARE, SELFPAY ==
--- NOTE | ~2023-03-21 | XR_ITS ---
XR shoulder RT min 2V 03/21/2023 15:37 Indication: Right shoulder pain after fall Procedure: 02/08/2021 Comparison: 02/08/2021 Findings: There is an old healed right clavicular fracture distally. No acute fracture. No significan t soft tissue abnormality. No foreign bodies. Impression: 1: No acute fracture. Reviewed, dictated and finalized at location A. R GRINDER Impression: 1: No acute fracture.
== END 2023-03-21 15:16 | disposition home or self-care (01) ==
LOC: CHSIMG 15:17
PROVIDERS: PCP Internal Medicine; Visit Provider Internal Medicine
DX: M25.511 Pain in right shoulder (principal)
CPT/HCPCS: 73030

== ENCOUNTER 2023-03-31 08:42 | Outpatient (RCR) | payer MEDICARE, SELFPAY ==
[2023-03-31 08:45] VITALS: BP_SYST 105
--- NOTE | 2023-03-31 09:29 | PCPTNOTE ---
called patients PCP while patient was on E-stim regarding decreased neck rom, neck pain, and radicular symptoms to the R hand following the fall. PCP requested patient come for an appointment after therapy today. relayed message to patient, and she is going to see him following therapy this morning.
--- NOTE | 2023-03-31 16:15 | OPREHPOC ---
Outpatient Therapy Plan of Care This is a Multidisciplinary Plan of Care that may contain components documented by all disciplines (PT, OT, and ST.) PT Problem 1 PT Problem #1 Knowledge Deficit PT Goal 1 Goal 1. independent and compliant with HEP Target Visit 6 PT Problem 2 PT Problem #2 Impaired Range of Motion PT Goal 1 Goal 1. improve cervical rotation to 60 degrees or better bilat 2. improve cervical sidebending to 30 degrees or better bilat 3. improve R shoulder passive flexion to 160 degrees 4. improve R shoulder passive ER to 90 degrees 5. improve R shoulder passive IR to 75 degrees or better Target Visit 12 PT Goal 2 Goal 1. improve R shoulder active flexion to 155 degrees or better Target Visit 12 PT Problem 3 PT Problem #3 Impaired Functional Mobil PT Goal 1 Goal 1. improve functional R UE reach behind head to the shirt collar 2. improve functional R UE reach behind back to the bra line 3. no R UE radicular symptoms 4. patient to sleep through the night without being woken up due to shoulder or neck pain Target Visit 12 PT Problem 4 PT Problem #4 Pain PT Goal 1 Goal 1. quick dash to display less than 30% functional deficits 2. decrease pain at worst to 3/10 in the neck 3. decrease pain at worst to 3/10 in the R shoulder Target Visit 12
--- NOTE | 2023-03-31 16:15 | PTOPEVAL1 ---
Assessment and note entered by JT File, PT Evaluation Information Assessment Status Evaluation Diagnosis R shoulder pain Onset 03/08/23 Subjective Information patient reports she fell on all 4's. however, most of her weight was on the R arm. she reports since then she has had difficulty with lifting and using the arm due to pain. she reports she can move and raise it, but has pain all over the shoulder when she does. she reports she also has had increased pain in the neck, and symtpoms down the R arm into the hand (specifically the middle, ring, and little fingers). she reports she normally gets injections to the neck that relieve her pain from previous issues, but this last injection did not help at all. she reports she has had xrays of the R shoulder, but not of the neck as she did not tell her PCP about the neck. Reported Pain Level Pain Score 7,5: Self Report Assessment PT Clinical Summary mrs. moran is a 62 yo woman who presents to skilled PT for evaluation of R shoulder pain. upon examination this date, patient was found to have decreased R shoulder rom, decreased R shoulder strength, pain, and inability to get into all testing positions of the R shoulder indicating a soft tissue injury of the R shoulder. she was also found to have neck pain, decreased neck rom, and radicular symptoms into the hand. she was educated on the importance of following up with the MD regarding rule out of neck injury prior to beginning care on the neck. she would benefit from continued skilled PT of the R shoulder and neck ( if approprioate via xrays/images) to improve her objective/functional deficits and progress towards a return to her prior level functional activity performance/quality of life. Plan of Care Interventions Electrical Stimulation,Hot Pack/Cold Pack,Manual Therapy,Neuro Re-education,Patient/Caregiver Educati,Therapeutic Activities,Therapeutic Exercise PT Services Indicated Yes Treatment Frequency and 3x weekly for 12 visits Duration These treatments will address the objective and functional deficits as defined above. The patient will be advanced safely and appropriately in order for the patient to progress towards his/her prior level of function. Additional exercises will be introduced and as well as a comprehensive home exercise program upon discharge, if needed, ?to ensure carryover of functional gains achieved in the clinic. This treatmen
--- NOTE | 2023-04-12 08:32 | PCPTNOTE ---
Patient cancelled session this morning due to illness.
[2023-04-25 13:00] VITALS: BP_SYST 154
--- NOTE | 2023-04-25 14:54 | OPREHPOC ---
Outpatient Therapy Plan of Care This is a Multidisciplinary Plan of Care that may contain components documented by all disciplines (PT, OT, and ST.) PT Problem 1 PT Problem #1 Knowledge Deficit PT Goal 1 Goal 1. independent and compliant with HEP Target Visit 6 Progress Met PT Problem 2 PT Problem #2 Impaired Range of Motion PT Goal 1 Goal 1. improve cervical rotation to 60 degrees or better bilat 2. improve cervical sidebending to 30 degrees or better bilat 3. improve R shoulder passive flexion to 160 degrees 4. improve R shoulder passive ER to 90 degrees 5. improve R shoulder passive IR to 75 degrees or better Target Visit 12 Progress Partially Met Comment progressing PT Goal 2 Goal 1. improve R shoulder active flexion to 155 degrees or better Target Visit 12 Comment progressing PT Problem 3 PT Problem #3 Impaired Functional Mobil PT Goal 1 Goal 1. improve functional R UE reach behind head to the shirt collar 2. improve functional R UE reach behind back to the bra line 3. no R UE radicular symptoms 4. patient to sleep through the night without being woken up due to shoulder or neck pain Target Visit 12 Comment progressing PT Problem 4 PT Problem #4 Pain PT Goal 1 Goal 1. quick dash to display less than 30% functional deficits 2. decrease pain at worst to 3/10 in the neck 3. decrease pain at worst to 3/10 in the R shoulder Target Visit 12 Comment progressing
--- NOTE | 2023-04-25 14:54 | PTOPPROGNS ---
Assessment and note entered by Heather Harrell DPT Evaluation Information Assessment Status Progress Diagnosis R shoulder pain Onset 03/08/23 Subjective Information Patient reports since starting PT most things have improved. She reports she has improved ability to fix her hair and dress. She reports she continues to have difficulty with reaching overhead into cabinets. She reports numbness and tingling continue into the elbow and 4th and 5th fingers. Assessment PT Clinical Summary Mrs. Wilkins has been seen for 10 visits of skilled PT with good progress towards goals. She demonstrates improved R shoulder ROM and strength as well as improved cervical ROM. She has reported improvement with dressing and fixing her hair. She continues to have increased pain and UE radiating pain. She reports difficulty with reaching overhead to complete house hold activities. She will benefit from continued skilled PT to address remaining impairments and return to PLOF. Plan of Care Interventions Electrical Stimulation,Hot Pack/Cold Pack,Manual Therapy,Neuro Re-education,Patient/Caregiver Educati,Therapeutic Activities,Therapeutic Exercise PT Services Indicated Yes Treatment Frequency and continue with remaining 2 visits Duration These treatments will address the objective and functional deficits as defined above. The patient will be advanced safely and appropriately in order for the patient to progress towards his/her prior level of function. Additional exercises will be introduced and as well as a comprehensive home exercise program upon discharge, if needed, ?to ensure carryover of functional gains achieved in the clinic. This treatment plan has been reviewed and agreement upon by the patient.
[2023-04-29 14:43] VITALS: BP_SYST 160
--- NOTE | 2023-04-29 15:51 | OPREHPOC ---
Outpatient Therapy Plan of Care This is a Multidisciplinary Plan of Care that may contain components documented by all disciplines (PT, OT, and ST.) PT Problem 1 PT Problem #1 Knowledge Deficit PT Goal 1 Goal 1. independent and compliant with HEP Target Visit 6 Progress Met PT Problem 2 PT Problem #2 Impaired Range of Motion PT Goal 1 Goal 1. improve cervical rotation to 60 degrees or better bilat 2. improve cervical sidebending to 30 degrees or better bilat 3. improve R shoulder passive flexion to 160 degrees 4. improve R shoulder passive ER to 90 degrees 5. improve R shoulder passive IR to 75 degrees or better Target Visit 20 Progress Partially Met Comment progressing PT Goal 2 Goal 1. improve R shoulder active flexion to 155 degrees or better Target Visit 20 Comment progressing PT Problem 3 PT Problem #3 Impaired Functional Mobil PT Goal 1 Goal 1. improve functional R UE reach behind head to the shirt collar 2. improve functional R UE reach behind back to the bra line 3. no R UE radicular symptoms 4. patient to sleep through the night without being woken up due to shoulder or neck pain Target Visit 20 Comment progressing, 1 met PT Problem 4 PT Problem #4 Pain PT Goal 1 Goal 1. quick dash to display less than 30% functional deficits 2. decrease pain at worst to 3/10 in the neck 3. decrease pain at worst to 3/10 in the R shoulder Target Visit 20 Comment progressing, 2. met
--- NOTE | 2023-04-29 15:51 | PTOPREEVAL ---
Assessment and note entered by Heather Harrell DPT Evaluation Information Assessment Status Re-evaluation Diagnosis R shoulder pain Onset 03/08/23 Subjective Information Patient reports she continues to improve with improved ROM. She reports she is able to reach into the microwave now which she was not able to do before. She reports she still has difficulty with hanging laundry into the closet and putting dishes away in the cabinet. She reports she has seen the chiropractor 2x with neck and back adjustments. Patient reports she would like to continue with skilled PT. Reported Pain Level Pain Score 2,3: Self Report Assessment PT Clinical Summary Mrs. Wilkins has been seen for 12 visits of skilled PT with good progress towards goals. She demonstrates improved R shoulder ROM and strength as well as improved cervical ROM. She reports she has ability to reach into the mocrowave but dishes and laundry continue to be challenging. She continues to have increased pain and UE radiating pain. She will benefit from continued skilled PT with main focus on improving R shoulder ROM and strength to return to house hold chores at [facility]. Plan of Care Interventions Electrical Stimulation,Hot Pack/Cold Pack,Manual Therapy,Neuro Re-education,Patient/Caregiver Educati,Therapeutic Activities,Therapeutic Exercise PT Services Indicated Yes Treatment Frequency and 2x weekly for 8 visits Duration These treatments will address the objective and functional deficits as defined above. The patient will be advanced safely and appropriately in order for the patient to progress towards his/her prior level of function. Additional exercises will be introduced and as well as a comprehensive home exercise program upon discharge, if needed, ?to ensure carryover of functional gains achieved in the clinic. This treatment plan has been reviewed and agreement upon by the patient.
--- NOTE | 2023-05-05 13:10 | OPREHPOC ---
Outpatient Therapy Plan of Care This is a Multidisciplinary Plan of Care that may contain components documented by all disciplines (PT, OT, and ST.) PT Problem 1 PT Problem #1 Knowledge Deficit PT Goal 1 Goal 1. independent and compliant with HEP Target Visit 6 Progress Met PT Problem 2 PT Problem #2 Impaired Range of Motion PT Goal 1 Goal 1. improve cervical rotation to 60 degrees or better bilat 2. improve cervical sidebending to 30 degrees or better bilat 3. improve R shoulder passive flexion to 160 degrees 4. improve R shoulder passive ER to 90 degrees 5. improve R shoulder passive IR to 75 degrees or better Target Visit 20 Progress Partially Met PT Goal 2 Goal 1. improve R shoulder active flexion to 155 degrees or better Target Visit 20 PT Problem 3 PT Problem #3 Impaired Functional Mobil PT Goal 1 Goal 1. improve functional R UE reach behind head to the shirt collar 2. improve functional R UE reach behind back to the bra line 3. no R UE radicular symptoms 4. patient to sleep through the night without being woken up due to shoulder or neck pain Target Visit 20 PT Problem 4 PT Problem #4 Pain PT Goal 1 Goal 1. quick dash to display less than 30% functional deficits 2. decrease pain at worst to 3/10 in the neck 3. decrease pain at worst to 3/10 in the R shoulder Target Visit 20
--- NOTE | 2023-05-05 13:10 | PCPTNOTE ---
patient cancelled due to having a head ache
--- NOTE | 2023-05-12 10:16 | PCPTNOTE ---
patient cancelled with illness
--- NOTE | 2023-05-26 10:56 | PCPTNOTE ---
patient cancelled due to migraine
--- NOTE | 2023-06-07 12:48 | OPREHPOC ---
Outpatient Therapy Plan of Care This is a Multidisciplinary Plan of Care that may contain components documented by all disciplines (PT, OT, and ST.) PT Problem 1 PT Problem #1 Knowledge Deficit PT Goal 1 Goal 1. independent and compliant with HEP Target Visit 6 Progress Met PT Problem 2 PT Problem #2 Impaired Range of Motion PT Goal 1 Goal 1. improve cervical rotation to 60 degrees or better bilat 2. improve cervical sidebending to 30 degrees or better bilat 3. improve R shoulder passive flexion to 160 degrees 4. improve R shoulder passive ER to 90 degrees 5. improve R shoulder passive IR to 75 degrees or better Target Visit 20 Progress Partially Met Comment . PT Goal 2 Goal 1. improve R shoulder active flexion to 155 degrees or better Target Visit 20 Progress Not Met Comment . PT Problem 3 PT Problem #3 Impaired Functional Mobil PT Goal 1 Goal 1. improve functional R UE reach behind head to the shirt collar 2. improve functional R UE reach behind back to the bra line 3. no R UE radicular symptoms 4. patient to sleep through the night without being woken up due to shoulder or neck pain Target Visit 20 Progress Partially Met Comment . PT Problem 4 PT Problem #4 Pain PT Goal 1 Goal 1. quick dash to display less than 30% functional deficits 2. decrease pain at worst to 3/10 in the neck 3. decrease pain at worst to 3/10 in the R shoulder Target Visit 20 Progress Partially Met Comment .
--- NOTE | 2023-06-07 12:48 | PTOPREEVAL ---
Assessment and note entered by JT File, PT Evaluation Information Assessment Status Re-evaluation Diagnosis R shoulder pain Onset 03/08/23 Subjective Information patient reports she has no pain in the neck any longer. she reports the shoulder is much better. she reports she continues to struggle with lifting any objects with the R hand, and is unable to reach much higher than slightly overhead. she reports she return to see the MD this weekend. Reported Pain Level Pain Score 0,2: Self Report Assessment PT Clinical Summary mrs. moran presents to skilled PT services for her 20th skilled therapy visit. as of this date, her neck pain is resolved. however, she continues to have R shoulder pain, R UE weakness, and deficits in R shoulder rom. she has partially met goals, but no progress has been made in shoulder rom, strength, or pain since last re-evaluation. she would benefit from hold of continued skilled PT at this time, and to return to MD for follow up and potential MRI of the R shoulder. Plan of Care Interventions Electrical Stimulation,Hot Pack/Cold Pack,Manual Therapy,Neuro Re-education,Patient/Caregiver Educati,Therapeutic Activities,Therapeutic Exercise PT Services Indicated Yes Treatment Frequency and hold therapy for MD follow up and possible MRI Duration These treatments will address the objective and functional deficits as defined above. The patient will be advanced safely and appropriately in order for the patient to progress towards his/her prior level of function. Additional exercises will be introduced and as well as a comprehensive home exercise program upon discharge, if needed, ?to ensure carryover of functional gains achieved in the clinic. This treatment plan has been reviewed and agreement upon by the patient.
== END 2023-06-07 23:59 | disposition home or self-care (01) ==
LOC: CHSPT 08:42
PROVIDERS: PCP Internal Medicine; Visit Provider Internal Medicine
DX: M25.511 Pain in right shoulder (principal)
CPT/HCPCS: 97014; 97035; 97110; 97140; 97150; 97161; G0283

== ENCOUNTER 2023-05-25 08:55 | Outpatient (CLI) | payer MEDICARE, SELFPAY ==
--- NOTE | 2023-05-25 11:30 | NEURO_ITS ---
Impression: # Complains of right hand weakness. Non-diabetic. # No Carpal Tunnel Syndrome. # Right ulnar neuropathy around the elbow. # Needle/EMG exam with decreased motor unit potentials in ADM and 1st DI. Nerve Conduction Studies Anti Sensory Summary Table Stim Site NR Peak (ms) P-T Amp (?V) Site1 Site2 Delta-P (ms) Dist (cm) Domenic (m/s) Right Median Anti Sensory (2-3nd Digit) Wrist 3.6 52.3 Wrist 2-3nd Digit 3.6 14.0 39 Wrist 3.8 58.0 Wrist 2-3nd Digit 3.6 14.0 39 Right Radial Anti Sensory (Base 1st Digit) Wrist 2.8 25.1 Wrist Base 1st Digit 2.8 0.0 Right Ulnar Anti Sensory (5th Digit) Wrist 3.4 27.0 Wrist 5th Digit 3.4 14.0 41 Motor Summary Table Stim Site NR Onset (ms) O-P Amp (mV) Site1 Site2 Delta-0 (ms) Dist (cm) Domenic (m/s) Right Median Motor (Abd Poll Brev) Wrist 3.8 4.7 Elbow Wrist 5.3 29.0 55 Elbow 9.1 4.9 Right Ulnar Motor (Abd Dig Minimi) Wrist 3.3 6.5 A Elbow Wrist 6.4 28.0 44 A Elbow 9.7 5.6 B Elbow Wrist 4.4 20.0 45 B Elbow 7.7 5.4 F Wave Studies NR F-Lat (ms) L-R F-Lat (ms) Right Median (Mrkrs) (Abd Poll Brev) 30.06 Right Ulnar (Mrkrs) (Abd Dig Min) 29.77 EMG Side Muscle Nerve Root Ins Act Fibs Amp Dur Recrt Comment Right 1stDorInt Ulnar C8-T1 Nml Nml Nml >12ms Reduced Right Ext Indicis Radial (Post Int) C7-8 Nml Nml Nml Nml Nml Right Ext Digitorum Radial (Post Int) C7-8 Nml Nml Nml Nml Nml Right BrachioRad Radial C5-6 Nml Nml Nml Nml Nml Right PronatorTeres Median C6-7 Nml Nml Nml Nml Nml Right Abd Poll Brev Median C8-T1 Nml Nml Nml Nml Nml Right ABD Dig Min Ulnar C8-T1 Nml Nml Nml >12ms Reduced Right FlexCarpiUln Ulnar C8,T1 Nml Nml Nml Nml Nml Right Ext Poll Long Radial (Post Int) C7-8 Nml Nml Nml Nml Nml MTDD
== END 2023-05-25 08:56 | disposition home or self-care (01) ==
LOC: ANHNEURO 08:56
PROVIDERS: PCP Internal Medicine; Visit Provider Internal Medicine
DX: G56.21 Lesion of ulnar nerve, right upper limb (principal)
CPT/HCPCS: 95886; 95909

== ENCOUNTER 2023-08-02 11:51 | Outpatient (CLI) | payer MEDICARE, SELFPAY ==
--- NOTE | ~2023-08-02 | DEXA_ITS ---
? Bone Density Report? Name:? YOSSI REDDING A Patient ID:??? [id number] Age:? 62 Sex:? Female Ethnicity:? White Date of : 1960 Indication: postmenopausal; screening for osteoporosis; Referring Provider: Uziel Garcia Study: Bone densitometry was performed. Exam Date: August 02, 2023 Accession number: [id number] Bone Density: Region? BMD??? T-score? Z-score?? Classification AP Spine(L1-L4)? 0.998?? -0.4?1.3? Normal Femoral Neck (Left)? 0.586?? -2.4? -0.9? Osteopenia Total Hip (Left)? 0.813?? -1.1? 0.2? Osteopenia Femoral Neck (Right)? 0.664?? -1.7? -0.2? Osteopenia Total Hip (Right)? 0.831?? -0.9? 0.3? Normal Femoral Neck Mean? 0.625?? -2.0? -0.5? Osteopenia Total Hip Mean? 0.822?? -1.0? 0.2? Normal World Health Organization criteria for BMD impression classify patients as: Normal (T-score at or above -1.0), Osteopenia (T-score between -1.0 and -2.5), or Osteoporosis (T-score at or below -2.5). 10-year Fracture Risk(1): Major Osteoporotic Fracture? 11% Hip Fracture? 2.2% Reported Risk Factors: [place] (), Neck BMD=0.586, BMI=21.3 (1) FRAX? Version 3.08. Fracture probability calculated for an untreated patient. Fracture probability may be lower if the patient has received treatment. Clinical Information Provided by Patient: Menopause Age: 48 No regular weight bearing exercise Drinks caffeinated beverages Onset of menses at age 8 Number of children 1 Impression: The patient has low bone mass, based on the Left Femoral Neck T- score. Discussion: BONE DENSITY IS LOW AT ONE OR MORE SKELETAL SITES. This patient's lowest T-score is low at one or more skeletal sites.? It meets the World Health Organization's (WHO) criteria for ?low bone mass?? (T-score between -1.0 and -2.5).? The patient's 10-year risk of fracture as calculated by FRAX is less than the threshold where pharmacological therapy is recommended by the National Osteoporosis Foundation (NOF).? However, all treatment decisions require clinical judgment and consideration of individual patient factors, including patient preferences, comorbidities, previous drug use, risk factors not captured in the FRAX model (e.g., frailty, falls, vitamin D deficiency, increased bone turnover, interval significant decline in bone density) and possible under or overestimation of fracture risk by FRAX. The patient should follow a healthful lifestyle (good nutrition with adequate calcium and vitamin D, and appropriate weight-bearing exercise). Follow-Up: Consider repeating this study in 2 to 3 years to reassess this patient's status, or sooner if there is some new clinical indication. Reported by: Dr. Adam Dowling on 08/05/2023 10:12:00 AM. JOYA
--- NOTE | ~2023-08-02 | MM_ITS ---
EXAMINATION: MM screening radha BI w toma HISTORY: Screening mammogram TECHNIQUE: Craniocaudal and mediolateral oblique 3-D tomosynthesis images were obtained and synthetic 2-D images were generated. CAD analysis was submitted and interpreted. COMPARISON: No prior mammogram is available for comparison at this institution. BREAST PARENCHYMAL COMPOSITION: There are scattered areas of fibroglandular density. FINDINGS: There is a new approximately 5 mm opacity anteriorly in the lower inner quadrant of the rig ht breast. Diagnostic right mammogram is recommended, with ultrasound if required. Otherwise no suspicious mass, architectural distortion, malignant calcification, skin thickening or r etraction or significant new or developing density of either breast is noted. IMPRESSION: 1. New 5 mm opacity in anterior lower inner quadrant of right breast 2. Diagnostic right mammogram and targeted right breast ultrasound are recommended BI-RADS Category 0: Incomplete: Needs additional imaging evaluation. Reviewed, dictated and finalized at location A. IMPRESSION: 1. New 5 mm opacity in anterior lower inner quadrant of right breast 2. Diagnostic right mammogram and targeted right breast ultrasound are recommen ded BI-RADS Category 0: Incomplete: Needs additional imaging evaluation.
== END 2023-08-02 11:52 | disposition home or self-care (01) ==
LOC: CHSIMG 11:53
PROVIDERS: PCP Internal Medicine; Visit Provider Internal Medicine
DX: Z12.31 Encounter for screening mammogram for malignant neoplasm of breast (principal); Z78.0 Asymptomatic menopausal state; R92.8 Other abnormal and inconclusive findings on diagnostic imaging of breast; M85.89 Other specified disorders of bone density and structure, multiple sites
CPT/HCPCS: 77063; 77067; 77080

== ENCOUNTER 2023-08-16 10:13 | Outpatient (CLI) | payer MEDICARE, SELFPAY ==
--- NOTE | ~2023-08-16 | MM_ITS ---
EXAMINATION: MM diagnostic radha RT w toma HISTORY: Impression 5 mm opacity reported in the anterior lower inner right breast on August 02, 2023 screening mammogram TECHNIQUE: Additional 3-D tomosynthesis images of the right breast were performed and synthetic 2-D i mages were generated. CAD analysis was submitted and interpreted. COMPARISON: August 02, 2023 bilateral screening mammogram FINDINGS: The previously reported 5 mm opacity is no longer identified on these supplemental views. N o suspicious mass or architectural distortion or other significant abnormality is detected. IMPRESSION: 1. No mammographic evidence of malignancy 2. Routine annual mammographic screening is recommended BI-RADS Category 1: Negative Reviewed, dictated and finalized at location A. Impression 5 mm opacity reported in the anterior lower inner right breast on Ap 2023 screening mammogram TECHNIQUE: Additional 3-D tomosynthesis images of the right breast were perform ed and synthetic 2-D images were generated. CAD analysis was submitted and inte rpreted. COMPARISON: August 02, 2023 bilateral screening mammogram FINDINGS: The previously reported 5 mm opacity is no longer identified on these supplemental views. No suspicious mass or architectural distortion or other si gnificant abnormality is detected.
== END 2023-08-16 10:14 | disposition home or self-care (01) ==
LOC: CHSIMG 10:14
PROVIDERS: PCP Internal Medicine; Visit Provider Internal Medicine
DX: R92.8 Other abnormal and inconclusive findings on diagnostic imaging of breast (principal)
CPT/HCPCS: 77061; 77065; G0279

== ENCOUNTER 2023-09-08 12:06 | Outpatient (CLI) | payer MEDICARE, SELFPAY ==
[2023-09-08 13:07] LABS: INR 1.1; Partial Thromboplastin Time 28.1 Seconds (22.3-36.8); Prothrombin Time 14.4 Seconds (11.1-14.7)
== END 2023-09-08 12:07 | disposition home or self-care (01) ==
LOC: ANHSURGERY 12:10
PROVIDERS: PCP Internal Medicine; Visit Provider Surgery
DX: Z01.818 Encounter for other preprocedural examination (principal); Z45.2 Encounter for adjustment and management of vascular access device
CPT/HCPCS: 36415; 85610; 85730

== ENCOUNTER 2023-09-09 08:09 | Outpatient (RCR) | payer MEDICARE, SELFPAY ==
--- NOTE | 2023-09-09 09:06 | OPREHPOC ---
Outpatient Therapy Plan of Care This is a Multidisciplinary Plan of Care that may contain components documented by all disciplines (PT, OT, and ST.) PT Problem 1 PT Problem #1 Knowledge Deficit PT Goal 1 Goal 1. independent and compliant with HEP Target Visit 6 PT Problem 2 PT Problem #2 Pain PT Goal 1 Goal 1. pain to maintain at 2/10 or less at worst in the R shoulder Target Visit 12 PT Problem 3 PT Problem #3 Impaired Range of Motion PT Goal 1 Goal 1. improve passive R shoulder flexion to 160 degrees 2. improve passive R Shoulder ER to 80 degrees Target Visit 6 PT Goal 2 Goal 1. improve active R shoulder flexion to 160 degrees 2. improve active R shoulder ER to 80 degrees Target Visit 12 PT Problem 4 PT Problem #4 Impaired Strength PT Goal 1 Goal 1. 4+/5 or better R shoulder strength 2. 5/5 L elbow extension Target Visit 12
--- NOTE | 2023-09-09 09:07 | PTOPEVAL1 ---
Assessment and note entered by JT File, PT Evaluation Information Assessment Status Evaluation Diagnosis R shoulder pain, R shoulder tightness Onset 09/01/23 Subjective Information patient reports she is not in a lot of pain in the R shoulder, but reports she needs surgery on the R elbow, and her surgeon does not want to put her in a cast on the R elbow until her shoulder is better. she reports she needs surgery on the elbow for ulnar nerve impingement. she reports the shoulder is tight. she was here back in april and may for R shoulder rehab after a fall and injury to the R shoulder. she reports she is still limited in reaching overhead, behind her back, and behind her head. she reports she has learned to modify her positioning to be able to use the shoulder to perform self care and dressing . Reported Pain Level Pain Score 2: Self Report Assessment PT Clinical Summary mrs. moran is a 62 yo woman who presents to skilled PT services for pain and decreased mobility in the R shoulder. she presents with deficits in R shoulder active and passive rom, R shoulder strength, and functional reaching with the R UE. continued skilled PT is indicated to restore patients rom and functional reaching, as well as, improve rom to be able to have surgery on the R elbow to return to her prior level functional activity performance and quality of life. Plan of Care Interventions Electrical Stimulation,Hot Pack/Cold Pack,Manual Therapy,Neuro Re-education,Patient/Caregiver Educati,Therapeutic Activities,Therapeutic Exercise PT Services Indicated Yes Treatment Frequency and 3x weekly for 12 visits Duration These treatments will address the objective and functional deficits as defined above. The patient will be advanced safely and appropriately in order for the patient to progress towards his/her prior level of function. Additional exercises will be introduced and as well as a comprehensive home exercise program upon discharge, if needed, ?to ensure carryover of functional gains achieved in the clinic. This treatment plan has been reviewed and agreement upon by the patient.
--- NOTE | 2023-11-03 07:41 | OPREHPOC ---
Outpatient Therapy Plan of Care This is a Multidisciplinary Plan of Care that may contain components documented by all disciplines (PT, OT, and ST.) PT Problem 1 PT Problem #1 Knowledge Deficit PT Goal 1 Goal 1. independent and compliant with HEP Target Visit 6 Progress Met PT Problem 2 PT Problem #2 Pain PT Goal 1 Goal 1. pain to maintain at 2/10 or less at worst in the R shoulder Target Visit 12 Progress Not Met PT Problem 3 PT Problem #3 Impaired Range of Motion PT Goal 1 Goal 1. improve passive R shoulder flexion to 160 degrees 2. improve passive R Shoulder ER to 80 degrees Target Visit 6 Progress Not Met PT Goal 2 Goal 1. improve active R shoulder flexion to 160 degrees 2. improve active R shoulder ER to 80 degrees Target Visit 12 Progress Not Met PT Problem 4 PT Problem #4 Impaired Strength PT Goal 1 Goal 1. 4+/5 or better R shoulder strength 2. 5/5 L elbow extension Target Visit 12 Progress Not Met
--- NOTE | 2023-11-03 07:41 | PTOPPROGNS ---
Assessment and note entered by JT File, PT Evaluation Information Assessment Status Progress Diagnosis R shoulder pain, R shoulder tightness Onset 09/01/23 Subjective Information patient reports her pain been about the same during therapy thus far. she has had instances where her pain is worse, but most of the time it is a 1-2/10 pain. she reports she still struggles with full mobility and lifting things with the R arm. she reports she is scheduled to follow up with the MD this week. Assessment PT Clinical Summary mrs. moran presents to skilled PT for her 10th skilled therapy visit. she continues to have pain in the R shoulder with limited rom and strength. she has met goal for HEP performance, but no other goals at this time. she is scheduled to follow up with her MD this week to discuss other options. she will be held from continued skilled PT at this time to await instructions after follow up. Plan of Care Interventions Electrical Stimulation,Hot Pack/Cold Pack,Manual Therapy,Neuro Re-education,Patient/Caregiver Educati,Therapeutic Activities,Therapeutic Exercise PT Services Indicated Yes Treatment Frequency and hold therapy continuation at this time. Duration These treatments will address the objective and functional deficits as defined above. The patient will be advanced safely and appropriately in order for the patient to progress towards his/her prior level of function. Additional exercises will be introduced and as well as a comprehensive home exercise program upon discharge, if needed, ?to ensure carryover of functional gains achieved in the clinic. This treatment plan has been reviewed and agreement upon by the patient.
== END 2023-10-18 16:00 | disposition home or self-care (01) ==
LOC: CHSPT 08:09
DX: M25.511 Pain in right shoulder (principal)
CPT/HCPCS: 97014; 97110; 97161; G0283

== ENCOUNTER 2023-09-12 00:50 | Day surgery (SDC) | payer MEDICARE, SELFPAY ==
[2023-09-07 08:20] VITALS: BMI 21.2
--- NOTE | 2023-09-07 08:27 | PC.NURSE ---
Report to the Outpatient Waiting Room, entrance under the green pavilion located off [facility], at time _0800_ on date _[id number]_. Planned Procedure Time: _1000_. Time changes happen often and if your time is changed the preop area will call you the afternoon before. - You and your visitor will be asked to self-screen and do not enter if you have any COVID symptoms. - A mask is optional within the hospital at this time. Patients may have clear liquids (water, carbonated beverages, clear teas, apple juice) until 3 hours prior to surgery with a maximum of 20 ounces. - No food from midnight until time of surgery Take the following medications with a SIP of water the morning of surgery: __Alprazolam, Amlodipine, Fluoxetine, Lamotrigine, Metoprolol.___ DO NOT STOP ANY OF YOUR OTHER PRESCRIPTION MEDICATIONS PRIOR TO SURGERY ?EXCEPT THE FOLLOWING Dr Clement's office is going to call patient about Xarelto after they get clearance from Dr Ahumada to hold it. Please no make-up, nail icelandic, hairspray, perfume, deodorant, or body powder the day of surgery. No jewelry (including any body piercings) or valuables the day of surgery, leave them at home. Please take a shower or bath the night before, or the morning of, surgery with an antibacterial soap. Wear comfortable, loose fitting clothing. - Jewelry must be removed prior to entering the operating room. Rings and piercings that are not removed may be cut off. - The hospital will not accept responsibility for valuables. - Please leave all valuables, including medications, at home the day of surgery. If you are going home after surgery, a licensed regional company hazmat tanker driver must drive you home. - NO public transportation without another adult if you receive anesthesia. - We recommend that an adult stay with you for 24 hours following discharge. - We also recommend that you do not drive, make important decision, drink alcoholic beverages, or take any drugs that were not prescribed by your health care provider for at least 24 hours after your discharge time. Follow any additional instructions given to you from your surgeon. If you or anyone in your household have experienced Covid symptoms in the past week, please notify your surgeon or the nurse liaison at the phone number below for possible testing. Telephone instructions given to _Cathy_and asked if any additional questions and then verbalized understanding. Patient advised to call surgeon office or pre surgery nurse liaison [phone] if any additional questions.
[2023-09-12] VITALS (9 sets, daily range): BP systolic 93–137; BP diastolic 49–69; PULSE 56–85; RESP 12–20; TEMP 36.2–36.7; O2SAT 97–100
--- NOTE | ~2023-09-12 | XR_ITS ---
EXAMINATION: XR fl guide central line place DATE: 09/12/2023 9:00 CDT INDICATION: INSERTION VINCENT CATH . TECHNIQUE: 1 fluoroscopic image of the chest were obtained during implanted port placement, performed by Lara Clement MD. I was not present during the procedure. Fluoroscopy exposure time was 19.9 s econds. Air Kerma 2.2884 mGy. DAP 0.0454 mGym2. COMPARISON: None FINDINGS/IMPRESSION: Fluoroscopic documentation of implanted port placement. Please refer to the operative note for comple te procedural details . Reviewed, dictated and finalized at location K.
--- NOTE | ~2023-09-12 | XR_ITS ---
Portable chest x-ray Comparison: 11/10/2021 Clinical History: Mediport placement Findings: Right-sided Mediport is in place, tip in the SVC. Lungs are clear, without focal consolida tion or pleural effusion. No pneumothorax. Cardiomediastinal silhouette is stable. Bones and soft ti ssues are unremarkable. Impression: Right-sided Mediport in place. Clear lungs. Reviewed, dictated and finalized at location M. Impression: Right-sided Mediport in place. Clear lungs.
--- NOTE | 2023-09-12 07:26 | PM.IMHP ---
H&P: HPI History of Present Illness Date/Time: 09/12/23 07:26 Chief Complaint: poor venous access Narrative: The patient is a 62-year-old female presenting for placement of port. The patient has chronic pain and has multiple injections per month to manage this. She reports that recently it has taken multiple sticks in order to obtain IV access. The patient is left-handed and denies any previous central venous catheterization. Review of Systems Review of Systems: All systems reviewed & are unremarkable except as noted in HPI and below PMFSH Past Medical History Medical History Aneurysm Brain surgery MAR 1990 Anxiety Arthritis Back pain Biceps tendonitis Chronic headaches Depression Fibromyalgia Gastroesophageal reflux disease GI bleed HLD (hyperlipidemia) Hypercholesterolemia Hypertension Injury of neck, whiplash Migraine Multiple sclerosis Peripheral neuropathy Neuropathy of both arms,hands,legs,and feet-numbness and tingling PUD (peptic ulcer disease) Right shoulder strain Rotator cuff rupture Seizure disorder Skin cancer Wears glasses Surgical History Surgical History H/O brain surgery History of appendectomy History of carpal tunnel surgery History of tonsillectomy Hx of tubal ligation S/P laparotomy For adhesiolysis Family History Family History Father Bladder cancer Malignant neoplasm of prostate Mother Lung cancer Other Family history of malignant neoplasm Social History Social History Smoking status: Never smoker Alcohol intake: never Substance use: never Substance use type: does not use Living arrangements: with family Gender identity (if verbalized by the patient): Female Spiritual care concerns: No Agree to blood products: Yes Meds Home Medications and Allergies Home Medications Medication Instructions Recorded Confirmed Type atorvastatin 40 mg tablet 40 mg PO DAILY 07/16/19 09/07/23 History fluticasone propionate 50 50 mcg intranasal BID PRN Allergy 07/16/19 09/07/23 History mcg/actuation nasal Symptoms spray,suspension lamotrigine 200 mg tablet 200 mg PO BID 07/16/19 09/07/23 History potassium chloride 10 mEq 10 meq PO DAILY 07/16/19 09/07/23 History tablet,extended release(part/cryst) tizanidine 4 mg tablet 4 mg PO QID 07/16/19 09/07/23 History topiramate 200 mg tablet 200 mg PO BID 07/16/19 09/07/23 History alprazolam 0.5 mg tablet 0.5 mg PO TID 07/17/19 09/07/23 History pantoprazole 40 mg tablet,delayed 40 mg PO DAILY 09/14/19 09/07/23 History release fluoxetine 40 mg capsule 80 mg PO DAILY 12/24/19 09/07/23 History amlodipine 10 mg tablet 10 mg PO DAILY 02/08/21 09/07/23 History losartan 100 mg tablet 100 mg PO DAILY 02/08/21 09/07/23 History omeprazole magnesium 20 mg 20 mg PO BID #20 tabs 02/08/21 09/07/23 Rx tablet,delayed release (Prilosec OTC) metoprolol tartrate 25 mg tablet 12.5 mg PO BID #30 tabs 11/10/21 09/07/23 Rx ibuprofen 800 mg tablet 800 mg PO TID PRN inflammation 09/07/23 09/07/23 History rivaroxaban 15 mg tablet (Xarelto) 15 mg PO DAILY 09/07/23 09/07/23 History Allergies Allergy/AdvReac Type Severity Reaction Status Date / Time lorazepam Allergy Unknown Hallucinati Verified 09/07/23 08:17 ng Penicillins Allergy Unknown Anaphylactic Verified 09/07/23 08:17 Shock phenytoin Allergy Unknown Seizure Verified 09/07/23 08:17 Sulfa (Sulfonamide Allergy Unknown HIVES Verified 09/07/23 08:17 Antibiotics) aripiprazole AdvReac Intermediate PASSES OUT Verified 09/07/23 08:17 amitriptyline AdvReac Unknown CONFUSION Verified 09/07/23 08:17 prazosin AdvReac Unknown Confusion Verified 09/07/23 08:17 ropinirole [From Requip] AdvReac Unknown Muscle Verified 09/07/23 08:17 Spasms hydroxyzin
--- NOTE | 2023-09-12 07:51 | WPDANESEPPF ---
Anes - Initial Pre Proc Eval Procedure: Operation Date: 09/12/23 09:00 Proposed Procedures p Insertion Nasrin Cath - Lara Clement MD Date/Time: 09/12/23 07:51 Surgeon: Lara Clement MD Pre Op Diagnosis: poor venous access Patient Data Age: 62 Gender: F Height: 1.65 m Weight: 57.7 kg Allergies Allergy/AdvReac Type Severity Reaction Status Date / Time lorazepam Allergy Unknown Hallucinati Verified 09/07/23 08:17 ng Penicillins Allergy Unknown Anaphylactic Verified 09/07/23 08:17 Shock phenytoin Allergy Unknown Seizure Verified 09/07/23 08:17 Sulfa (Sulfonamide Allergy Unknown HIVES Verified 09/07/23 08:17 Antibiotics) aripiprazole AdvReac Intermediate PASSES OUT Verified 09/07/23 08:17 amitriptyline AdvReac Unknown CONFUSION Verified 09/07/23 08:17 prazosin AdvReac Unknown Confusion Verified 09/07/23 08:17 ropinirole [From Requip] AdvReac Unknown Muscle Verified 09/07/23 08:17 Spasms hydroxyzine [From Vistaril] AdvReac Unknown Verified 09/07/23 08:17 Home Medications Medication Instructions Recorded Confirmed Type atorvastatin 40 mg tablet 40 mg PO DAILY 07/16/19 09/07/23 History fluticasone propionate 50 50 mcg intranasal BID PRN Allergy 07/16/19 09/07/23 History mcg/actuation nasal Symptoms spray,suspension lamotrigine 200 mg tablet 200 mg PO BID 07/16/19 09/07/23 History potassium chloride 10 mEq 10 meq PO DAILY 07/16/19 09/07/23 History tablet,extended release(part/cryst) tizanidine 4 mg tablet 4 mg PO QID 07/16/19 09/07/23 History topiramate 200 mg tablet 200 mg PO BID 07/16/19 09/07/23 History alprazolam 0.5 mg tablet 0.5 mg PO TID 07/17/19 09/07/23 History pantoprazole 40 mg tablet,delayed 40 mg PO DAILY 09/14/19 09/07/23 History release fluoxetine 40 mg capsule 80 mg PO DAILY 12/24/19 09/07/23 History amlodipine 10 mg tablet 10 mg PO DAILY 02/08/21 09/07/23 History losartan 100 mg tablet 100 mg PO DAILY 02/08/21 09/07/23 History omeprazole magnesium 20 mg 20 mg PO BID #20 tabs 02/08/21 09/07/23 Rx tablet,delayed release (Prilosec OTC) metoprolol tartrate 25 mg tablet 12.5 mg PO BID #30 tabs 11/10/21 09/07/23 Rx ibuprofen 800 mg tablet 800 mg PO TID PRN inflammation 09/07/23 09/07/23 History rivaroxaban 15 mg tablet (Xarelto) 15 mg PO DAILY 09/07/23 09/07/23 History Patient hx anesthesia problems: none Family hx anesthesia problems: none Results Review: All pre-operative results and documents have been reviewed as part of the pre-operative evaluation. [facility] Past Medical History Medical History Aneurysm Brain surgery MAR 1990 Anxiety Arthritis Back pain Biceps tendonitis Chronic headaches Depression Fibromyalgia Gastroesophageal reflux disease GI bleed HLD (hyperlipidemia) Hypercholesterolemia Hypertension Injury of neck, whiplash Migraine Multiple sclerosis Peripheral neuropathy Neuropathy of both arms,hands,legs,and feet-numbness and tingling PUD (peptic ulcer disease) Right shoulder strain Rotator cuff rupture Seizure disorder Skin cancer Wears glasses Surgical History Surgical History H/O brain surgery History of appendectomy History of carpal tunnel surgery History of tonsillectomy Hx of tubal ligation S/P laparotomy For adhesiolysis Family History Family History Father Bladder cancer Malignant neoplasm of prostate Mother Lung cancer Other Family history of malignant neoplasm Social History Social History Smoking status: Never smoker Alcohol intake: never Substance use: never Substance use type: does not use Living arrangements: with family Gender identity (if verbalized by the patient): Female Spiritual care concerns: No Agree to blood products: Yes Anes - Eval Final Pre
[2023-09-12] MEDS: LACTATED RINGERS 1,000 ML 30 ML IV CONT (08:30)
[2023-09-12] MEDS: KETOROLAC 15 MG/ML VIAL (*BKC) IV PUSH (08:35)
--- NOTE | 2023-09-12 08:35 | WPDHPUPDATE1 ---
History and Physical Update Update Date/Time: 09/12/23 08:35 History and Physical has been reviewed, including an updated exam of the patient. There are NO changes in the patient's condition. Risks, benefits, and alternatives have been discussed and questions answered. Patient agrees to proceed with procedure.
[2023-09-12] MEDS: ceFAZolin 2 GM/D5W 50 ML 2 GM/50 ML BAG IVPB (08:50)
[2023-09-12] MEDS: HEPARIN SODIUM, PORCINE 10,000 UNITS/10 ML VIAL 10000 UNITS IRRIGATION (09:13)
[2023-09-12] MEDS: HEPARIN SODIUM 5,000 UNITS/ML VIAL 5000 UNITS IRRIGATION (09:14)
[2023-09-12] MEDS: BUPIVACAINE/EPINEPHRINE 0.5% 10 ML VIAL 20 ML INFILTRATE (09:15)
--- NOTE | 2023-09-12 09:49 | W.PM.PROC2 ---
Procedure Note - Detailed Date of Procedure 09/12/23 Pre-op Diagnosis poor venous access Post-op Diagnosis Same Procedure Performed placement of right internal jugular venous access device under both ultrasound and fluroscopic guidance Surgeon Lara Clement MD Anesthesia General and Local Indications 62 y/o F c poor venous access needing access for monthly infusion therapy Findings unable to pass catheter into right subclavian vein and subsequently switched to right internal jugular vein Description of Procedure Patient was brought into the operating room and placed in the supine position. After adequate induction of general anesthesia, the patient was prepped and draped in normal sterile fashion. Time-out was then done to verify the patient's identity, as well as the procedure being performed. Initially, I was able to gain access into the right subclavian vein. This was confirmed via fluoroscopic guidance. I was able to pass a dilating sheath into the vein over the guidewire under sterile Seldinger technique. At this point the guidewire and dilator removed, however I was unable to pass the catheter through the vein. This was largely due to an acute angulation. Given this finding, the decision was made to use the right internal jugular vein for access. I used the ultrasound to gain access into the right internal jugular vein. Once access was gained, I placed the guidewire in the vein and confirmed proper positioning using fluoroscopy. I then locally anesthetized an area in the right chest. I then made an incision including making a subcutaneous pocket inferiorly to allow placement of the port itself. I proceeded to tunnel the catheter from the chest to the right neck insertion site. I then placed a dilating sheath over the guidewire into the right internal jugular vein via sterile Seldinger technique. This was once again done and confirmed via fluoroscopic guidance. I then removed the dilator and the guidewire, now just leaving the sheath in the vein. I then fed the previously flushed catheter into the right internal jugular vein under fluoroscopic guidance. At approximately 20 cm, the catheter was noted to be near the atrial caval junction. I then peeled away the sheath, now just leaving the catheter in the vein. I then was able to easily draw and flush from the catheter. The catheter was cut to fit and attached to the port itself. The port was placed into the previously made subcutaneous pocket and sutured in with 0 Ethibond suture. Final fluoroscopic view showed the termination of the catheter at the atrial caval junction with a nice smooth curvature back to the port itself. I was able to gain access to the port with a Fox needle and was able to easily draw and flush from the port. I then flushed 4 cc of a final heparin flush into the port. The incision was closed with 3 0 Vicryl suture in the subcutaneous tissue and the skin was closed with 4 O Monocryl subcuticular suture. Dermabond was then placed on wound. The patient tolerated the procedure well and will be sent to the recovery room in stable condition. Implants RIJ VAD Estimated Blood Loss 10 Pathology None sent Complications No immediate complications Condition Stable Disposition PACU [facility] Billing Surgery - Charge Forward: Surgery Billing
[2023-09-12] MEDS: fentaNYL CITRATE INJ (*CRX) 100 MCG/2 ML VIAL 25 MCG IV PUSH (10:16)
--- NOTE | 2023-09-12 10:27 | SUR.PHASEI ---
Simple mask removed at 1020
[2023-09-12] MEDS: ONDANSETRON INJ 4 MG/2 ML VIAL IV PUSH (10:54)
--- NOTE | 2023-09-12 11:55 | SUR.PHASEII ---
MD Clement contacted regarding when pt should resume blood thinner after discharge - pt is to resume tomorrow. Pt instructed.
== END 2023-09-12 11:59 | disposition home or self-care (01) ==
PROVIDERS: PCP Internal Medicine; Visit Provider Surgery
PROC: (CPT 36561; principal; 2023-09-12 09:00)
DX: I87.2 Venous insufficiency (chronic) (peripheral) (principal); I10 Essential (primary) hypertension; G62.9 Polyneuropathy, unspecified; M79.7 Fibromyalgia; K21.9 Gastro-esophageal reflux disease without esophagitis; G35 Multiple sclerosis; G40.909 Epilepsy, unspecified, not intractable, without status epilepticus; E78.00 Pure hypercholesterolemia, unspecified
CPT/HCPCS: 36561; 36415; 77001; 85610; 85730; C1788; J0690; J1100; J1596; J1644; J1885; J2405; J2704; J3010; J7030; J7120

== ENCOUNTER 2023-10-13 13:00 | Outpatient (CLI) | payer MEDICARE, SELFPAY ==
--- NOTE | 2023-10-13 13:10 | PC.NURSE ---
Here for OP zoledronic acid, given written information on drug prior to administration, nurse present during infusion as this is the first time patient has received
[2023-10-13 13:15] VITALS: BP 113/54; PULSE 66; RESP 18; TEMP 35.9; O2SAT 95
[2023-10-13] MEDS: ZOLEDRONIC ACID 5 MG/100 ML 100 ML 400 MG IVPB (13:45)
[2023-10-13 13:54] VITALS: BMI 21.2
[2023-10-13] MEDS: HEPARIN SODIUM LOCK FLUSH 500 UNITS/5 ML SYRINGE IV PUSH (14:05)
[2023-10-13 14:10] VITALS: BP 123/61; PULSE 61; RESP 18; TEMP 35.9; O2SAT 95
--- NOTE | 2023-10-13 14:15 | PC.NURSE ---
Ambulatory upon discharge, instructions given, including s/s to watch for at home after medication, port de accessed and bandage applied, tolerated well
== END 2023-10-13 14:15 | disposition home or self-care (01) ==
PROVIDERS: PCP Internal Medicine; Visit Provider Internal Medicine
DX: M81.0 Age-related osteoporosis without current pathological fracture (principal)
CPT/HCPCS: 96365; J3489

== ENCOUNTER 2023-11-17 09:12 | Outpatient (CLI) | payer MEDICARE, SELFPAY ==
[2023-11-17 09:44] LABS: Anion Gap 14 mmol/L (4-12); Blood Urea Nitrogen 29 mg/dL (7-18); Calcium 8.7 mg/dL (8.5-10.1); Carbon Dioxide 20 mmol/L (21-32); Chloride 106 mmol/L (98-108); Estimated Glomerular Filt Rate 34; Glucose 100 mg/dL (70-99); Osmolality Calculated 295 mOsm/kg (285-295); Potassium 3.9 mmol/L (3.5-5.1); Sodium 140 mmol/L (136-145)
== END 2023-11-17 09:13 | disposition home or self-care (01) ==
LOC: CHSLAB 09:14
PROVIDERS: PCP Internal Medicine; Visit Provider Internal Medicine
DX: E86.0 Dehydration (principal)
CPT/HCPCS: 36415; 80048

== ENCOUNTER 2023-11-22 12:52 | Outpatient (RCR) | payer MEDICARE, SELFPAY ==
--- NOTE | 2023-11-23 14:19 | BUOTOPEVAL ---
Assessment and note entered by Aislinn Sharp OT Evaluation Information Assessment Status Evaluation Diagnosis R subcutaneous UNT Onset 10/31/2023 Subjective Information The patient reports 4/10 pain in R elbow and into posterior forearm that is described as sharp and sometimes has burning sensation. The patient demonstrates mild tingling and numbness but stated that it feels like that is mostly coming from thumb pain into wrist. The patient stated she does not think she needs OT due to having surgery on L UE in the past. She reports that her incision site is sensitive. Her main complaint with function at this time is she is unable to use B hands to do things where she needs both hands for everything. The patient reports that she knows the exercises to do from her last surgery on her L side and is aware of scar massage techniques. Reported Pain Level Pain Score 4: Self Report Assessment OT Clinical Summary The patient is a 63 year old female who is s/p right subcutaneous UNT on 10/31/23. The patient demonstrates moderate R UE pain at elbow and posterior forearm, minimally impaired AROM of elbow and wrist, and difficulty performing ADLs using B UE simultaneously. The patient now demonstrates score of 52.3% on QuickDASH questionnaire which demonstrates moderate UE dysfunction and affects her ability to perform ADLs. The patient previously did not demonstrate ROM deficits and had pain from cubital tunnel syndrome that was resolved with this procedure. The patient requires skilled OT to address limited ROM, mobility of UE, pain and upon healing and release from weight restrictions; scar management and strengthening. Plan of Care Interventions Therapeutic Exercise,Manual Therapy,Neuro Re- education,Therapeutic Activities,Hot Pack/Cold Pack,Electrical Stimulation,Sensory Integrative Techn,Self-Care/Home Management,Prosthetic Training,Ultrasound OT Services Indicated Yes Treatment Frequency and 1x/week for 6 visits. Duration These treatments will address the objective and functional deficits as defined above. The patient will be advanced safely and appropriately in order for the patient to progress towards his/her prior level of function. Additional exercises will be introduced and as well as a comprehensive home exercise program upon discharge, if needed, ?to ensure carryover of functional gains achieved in the clinic. This treatment plan has been reviewed and agreement upon by the patient.
--- NOTE | 2023-12-07 11:08 | OTOPPROGNS ---
Assessment and note entered by Aislinn Sharp OT Evaluation Information Assessment Status Progress Assessment OT Clinical Summary The patient demonstrates significant progress in elbow pain, AROM, and knowledge/completion of UE HEP which has caused increased independence with ADLs and IADLs. She reports she has been doing more dishes and has no issues with showering or dressing tasks. The patient scored 20.5% on QuickDASH at progress note demonstrating significant improvement from 53% at evaluation. She has reported to therapist that she is comfortable with completing UE HEP at home to continue to make progress and does not require OT anymore. Due to the patient's continued pain and limited strength (due to weight restriction post surgery) she continues to not be at PLOF maintaining highest level of independence and could benefit from continued OT. The patient reports she has had same surgery on opposite UE and is comfortable to performing UE HEP at home. Therapist educated the patient to continue with ROM exercises in the meantime until appointment with MD to determine weight restriction changes. The patient demonstrates good progress toward goals and has met current goals for pain and ROM. Plan of Care Interventions Therapeutic Exercise,Manual Therapy,Therapeutic Activities,Hot Pack/Cold Pack,Electrical Stimulation,Sensory Integrative Techn,Self-Care/ Home Management OT Services Indicated Yes Treatment Frequency and 1x/week for 10 visits. Duration These treatments will address the objective and functional deficits as defined above. The patient will be advanced safely and appropriately in order for the patient to progress towards his/her prior level of function. Additional exercises will be introduced and as well as a comprehensive home exercise program upon discharge, if needed, ?to ensure carryover of functional gains achieved in the clinic. This treatment plan has been reviewed and agreement upon by the patient.
== END 2024-02-20 23:59 | disposition home or self-care (01) ==
LOC: CHSOT 12:52
DX: G56.21 Lesion of ulnar nerve, right upper limb (principal)
CPT/HCPCS: 97110; 97140; 97165; 97530

== ENCOUNTER 2023-11-25 08:51 | Outpatient (CLI) | payer MEDICARE, SELFPAY ==
--- NOTE | ~2023-11-25 | US_ITS ---
EXAMINATION: US retroperitoneal comp DATE: 11/25/2023 09:09 INDICATION: Elevated kidney function TECHNIQUE: Multiple ultrasound grayscale images of the kidneys were obtained. COMPARISON: 02/27/2020 FINDINGS: The right kidney measures 9.6 x 4.1 x 3.8 cm. The left kidney measures 10.2 x 3.8 x 4.3 cm. The kidne ys demonstrate normal echogenicity. 1.2 cm anechoic cyst at the upper pole of the right kidney. 7 mm echogenic focus with posterior technical artifact at the upper pole of the right kidney which could r epresent a stone or potentially rim calcification along the cyst. There is no hydronephrosis in eithe r kidney. The bladder is normal. IMPRESSION: 1. 7 mm calcification alongside a 1.2 cm cyst at the report of the right kidney which could represen t either a renal stone or rim calcification. 2. Otherwise normal kidneys with no hydronephrosis. Reviewed, dictated and finalized at location A. IMPRESSION: 1. 7 mm calcification alongside a 1.2 cm cyst at the report of the right kidne y which could represent either a renal stone or rim calcification. 2. Otherwise normal kidneys with no hydronephrosis.
== END 2023-11-25 08:52 | disposition home or self-care (01) ==
LOC: CHSIMG 08:52
PROVIDERS: PCP Internal Medicine; Visit Provider Internal Medicine
DX: N28.89 Other specified disorders of kidney and ureter (principal)
CPT/HCPCS: 76770

== ENCOUNTER 2023-12-29 07:51 | Emergency (ER) | payer MEDICARE, SELFPAY ==
--- NOTE | ~2023-12-29 | XR_ITS ---
XR ankle LT min 3V Ordering provider: Ollie Alexander MD History: . Bilateral foot and ankle injury . Comparison: None. FINDINGS: BONES: No acute fracture or dislocation. JOINT SPACES: The ankle mortise is normal. SOFT TISSUES: Radiopaque foreign bodies are seen posteriorly. IMPRESSION: No acute osseous abnormality left ankle. Reviewed, dictated and finalized at location A.
--- NOTE | ~2023-12-29 | XR_ITS ---
XR foot LT min 3V Ordering provider: Ollie Alexander MD History: . bilateral foot and ankle injury . Comparison: None. FINDINGS: BONES: No acute fracture or dislocation. JOINT SPACES: Normal. No tarsal coalition. SOFT TISSUES: Radiopaque foreign bodies with soft tissue defect is seen in the area of the calcaneus. IMPRESSION: No acute osseous abnormality left foot. Reviewed, dictated and finalized at location A.
--- NOTE | ~2023-12-29 | XR_ITS ---
XR foot RT min 3V Ordering provider: Ollie Alexander MD History: . bilateral foot and ankle injury . Comparison: None. FINDINGS: BONES: No acute fracture or dislocation. JOINT SPACES: Normal. No tarsal coalition. SOFT TISSUES: Normal. IMPRESSION: No acute osseous abnormality of the right foot. Reviewed, dictated and finalized at location A.
--- NOTE | ~2023-12-29 | XR_ITS ---
XR ankle RT min 3V Ordering provider: Ollie Alexander MD History: . bilateral foot and ankle injury . Comparison: None. FINDINGS: BONES: No acute fracture or dislocation. Lucency is projected over the distal fibula but not extendin g to the cortical area. JOINT SPACES: Normal. SOFT TISSUES: Normal. Calcaneal spur. IMPRESSION: No definite acute osseous abnormality of the right ankle. If patient continues to have symptoms a rep eat exam is advised. Reviewed, dictated and finalized at location A. IMPRESSION: No definite acute osseous abnormality of the right ankle. If patient continues to have symptoms a repeat exam is advised.
[2023-12-29 07:56] VITALS: BP 118/71; PULSE 66; RESP 14; TEMP 36.7; O2SAT 100
[2023-12-29] MEDS: KETOROLAC (*BKC) 60 MG/2 ML VIAL IM (08:16)
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
[2023-12-29 08:59] VITALS: BP 120/61; PULSE 65; RESP 16; TEMP 36.6; O2SAT 97
== END 2023-12-29 09:05 | disposition home or self-care (01) ==
PROVIDERS: Emergency Provider Emergency Medicine; PCP Internal Medicine
DX: S93.401A Sprain of unspecified ligament of right ankle, initial encounter (principal); I10 Essential (primary) hypertension; W01.0XXA Fall on same level from slipping, tripping and stumbling without subsequent striking against object, initial encounter
CPT/HCPCS: 73610; 73630; 96372; 99284; J1885

== ENCOUNTER 2024-03-05 08:57 | Outpatient (CLI) | payer MEDICARE, SELFPAY ==
[2024-03-05] MEDS: HEPARIN SODIUM LOCK FLUSH 500 UNITS/5 ML SYRINGE IV PUSH (09:05)
[2024-03-05 09:10] VITALS: BP 126/76; PULSE 76; RESP 14; O2SAT 98
== END 2024-03-05 08:58 | disposition home or self-care (01) ==
PROVIDERS: PCP Internal Medicine; Visit Provider Nurse Practitioner Family
DX: Z45.2 Encounter for adjustment and management of vascular access device (principal)
CPT/HCPCS: 96523

== ENCOUNTER 2024-03-06 12:55 | Outpatient (RCR) | payer MEDICARE, SELFPAY ==
--- NOTE | 2024-03-06 14:05 | OTOPEVAL1 ---
Assessment and note entered by Aislinn Sharp OT Evaluation Information Assessment Status Evaluation Diagnosis Right thumb CMC OA, Right trapezium excision with internal brace 02/06/24 ICD-10 Condition Codes (OT) M79.641 Onset 02/06/24 Subjective Information They gave HEP for wrist flexion/extension, supination/pronation, digit opposition, thumb abduction/adduction. Reported Pain Level Pain Score 3: Self Report Assessment OT Clinical Summary The patient is a 63 year old female who was referred to outpatient OT due to right trapezium excision with internal brace on 02/06/24. Her PMH includes but is not limited to skin cancer, HTN, cardiac deficits. The patient demonstrates minimal to moderate pain of R hand at base of thumb, limited AROM of R thumb and digits of hand, poor fine motor coordination and minimal edema affecting the use of R UE. The patient requires skilled OT to address deficits and decrease pain needed to regain full ROM for daily tasks. Plan of Care Interventions Therapeutic Exercise,Manual Therapy,Neuro Re- education,Therapeutic Activities,Hot Pack/Cold Pack,Electrical Stimulation,Sensory Integrative Techn,Self-Care/Home Management,Prosthetic Training,Check Out for Orthotic/Pr OT Services Indicated Yes Treatment Frequency and 1x/week for 10 visits. Duration These treatments will address the objective and functional deficits as defined above. The patient will be advanced safely and appropriately in order for the patient to progress towards his/her prior level of function. Additional exercises will be introduced and as well as a comprehensive home exercise program upon discharge, if needed, ?to ensure carryover of functional gains achieved in the clinic. This treatment plan has been reviewed and agreement upon by the patient.
--- NOTE | 2024-03-06 14:05 | OPREHPOC ---
Outpatient Therapy Plan of Care This is a Multidisciplinary Plan of Care that may contain components documented by all disciplines (PT, OT, and ST.) OT Problem 1 OT Problem #1 Knowledge Deficit OT Goal 1 Goal / Goal Update The patient will demonstrate 100% knowledge and return demonstration of UE HEP needed to improve function of R thumb. Target Visit 10 OT Problem 2 OT Problem #2 Impaired Range of Motion OT Goal 1 Goal / Goal Update The patient will demonstrate full AROM of R thumb for flexion and extension needed to maintain grasp of items for grooming. Target Visit 10 OT Goal 2 Goal / Goal Update The patient will demonstrate 0/10 pain in R thumb in order to avoid discomfort during daily tasks such as dressing tasks. Target Visit 10 OT Problem 3 OT Problem #3 Impaired Coordination OT Goal 1 Goal / Goal Update The patient will demonstrate WNL fine motor coordination performing digit opposition without pain and perform 9-hole peg test without pain in < 24 seconds in order to increase success with IADLs . Target Visit 10 OT Goal 2 Goal / Goal Update The patient will demonstrate decreased edema of R hand with 18 cm measure from thenar eminence to ensure full AROM. Target Visit 10
--- NOTE | 2024-05-16 09:04 | BUOTOPEVAL ---
Assessment and note entered by Aislinn Sharp, OT Evaluation Information Assessment Status Progress Diagnosis Right thumb CMC OA, Right trapezium excision with internal brace 02/06/24 ICD-10 Condition Codes (OT) Pain in right hand M79.641 Onset 02/06/24 Reported Pain Level Pain Score 2: Self Report Pain Score 0: Self Report Pain Score 0: Self Report Pain Score 3: Self Report Pain Score 2: Self Report Pain Score 0: Self Report Pain Score 2: Self Report Pain Score 3: Self Report Pain Score 3: Self Report Assessment OT Clinical Summary The patient demonstrates good progress toward goals with reasonable expectation for improvement. She demonstrates significant progress in thumb AROM, edema, pain, functional use of R hand, and fine motor coordination which have increased the patient's ability to open door and containers for ADLs. She reports that she has been trying to use her hand more and is able to gauge what activities are painful and discontinues them when she has too much pain. She reports that her ADLs are performed with modified independence and is using her R hand more during those functional tasks. Due to the patient's good progress toward goals, completion of HEP and clearance from MD to begin strengthening of affected UE, therapist has upgraded goals and added strengthening goal. The patient's goal is to increase strength for increased functional use of hand but is also happy with her progress this far. She reports that she does not think she needs much more therapy. Due to patient's previous injuries and surgeries to affected UE, therapist to engaged patient in strengthening exercises and activities needed to improve function and independence. The patient demonstrates increased functional use of R UE scoring 25% on QuickDASH questionnaire compared to start of care where score was moderately impaired at 47.7%. The patient demonstrates good progress toward goals, to continue with OT for 6 more visits to increase strength and ROM of R thumb and vaccines solutions specialist strength. Plan of Care Interventions Therapeutic Exercise,Manual Therapy,Neuro Re- education,Therapeutic Activities,Hot Pack/Cold Pack,Sensory Integrative Techniques,Self-Care/Home Management,Prosthetic Training OT Services Indicated Yes Treatment Frequency and 1-2x/week for 6 visits. Duration These treatments will address the objective and functional deficits as defined above. The patient will be advanced safely and appropriately in order for the patient to progress towards his/her prior level of function. Additional exercises will be introduced and as well as a comprehensive home exercise program upon discharge, if needed, ?to ensure carryover of functional gains achieved in the clinic. This treatment plan has been reviewed and agreement upon by the patient.
--- NOTE | 2024-05-16 09:04 | OPREHPOC ---
Outpatient Therapy Plan of Care This is a Multidisciplinary Plan of Care that may contain components documented by all disciplines (PT, OT, and ST.) OT Problem 1 OT Problem #1 Knowledge Deficit OT Goal 1 Goal / Goal Update The patient will demonstrate 100% knowledge and return demonstration of UE HEP needed to improve function of R thumb. CONTINUE WITH STRENGTHENING; 05/14/24 Target Visit 15 Progress Partially Met OT Problem 2 OT Problem #2 Impaired Range of Motion OT Goal 1 Goal / Goal Update The patient will demonstrate full AROM of R thumb for flexion and extension needed to maintain grasp of items for grooming. PROGRESSING; CONTINUE 05/14/24 Target Visit 15 Progress Partially Met OT Goal 2 Goal / Goal Update The patient will demonstrate 0/10 pain in R thumb in order to avoid discomfort during daily tasks such as dressing tasks. PROGRESSING; CONTINUE 05/14/24 Target Visit 15 Progress Partially Met OT Problem 3 OT Problem #3 Impaired Coordination OT Goal 1 Goal / Goal Update The patient will demonstrate WNL fine motor coordination performing 9-hole peg test without pain in <24 seconds in order to increase success with IADLs. PROGRESSING; CONTINUE 05/14/24 no pain during opposition; 32 seconds Target Visit 15 Progress Partially Met OT Goal 2 Goal / Goal Update The patient will demonstrate decreased edema of R hand with 18 cm measure from thenar eminence to ensure full AROM. GOAL MET; DISCONTINUE 05/14/24 Target Visit 10 Progress Met OT Goal 1 Goal / Goal Update The patient will demonstrate increased strength of R hand demonstrating 35 lbs of core drier strength and 3 lbs of lateral pinch strength needed to perform ADLs with highest level of independence. NEW GOAL; 05/14/24 Target Visit 15
== END 2024-06-04 23:59 | disposition home or self-care (01) ==
LOC: CHSOT 12:55
DX: M18.11 Unilateral primary osteoarthritis of first carpometacarpal joint, right hand (principal)
CPT/HCPCS: 97110; 97140; 97165; 97530

== ENCOUNTER 2024-06-11 11:14 | Outpatient (RCR) | payer MEDICARE, SELFPAY ==
--- NOTE | 2024-06-27 11:51 | OTOPDC ---
Assessment and note entered by Aislinn Sharp OT Evaluation Information Assessment Status Discharge Diagnosis Primary osteoarthritis of first carpometacarpal joint of right hand ICD-10 Condition Codes (OT) Generalized muscle weakness M62.81 Reported Pain Level Pain Score 0: Self Report Assessment OT Clinical Summary The patient demonstrates good progress toward goals. She demonstrates no pain during ADLs with 0 /10 reported, WFL AROM of R thumb needed to make composite fist for daily tasks, no edema and WNL personal assistant/pinch strength and fine motor coordination of R hand. The patient is able to perform all daily tasks without discomfort and with independence. She demonstrates good understanding of HEP and follow through with program. The patient has met all goals at this time and was educated on continuation of HEP and using hand for daily tasks . The patient no longer requires skilled OT, discharged at this time. Plan of Care OT Services Indicated No
--- NOTE | 2024-06-27 11:51 | OPREHPOC ---
Outpatient Therapy Plan of Care This is a Multidisciplinary Plan of Care that may contain components documented by all disciplines (PT, OT, and ST.) OT Problem 1 OT Problem #1 Knowledge Deficit OT Goal 1 Goal / Goal Update The patient will demonstrate 100% knowledge and return demonstration of UE HEP needed to improve function of R thumb. DISCONTINUE; MET; 06/27/2024 Target Visit 15 Progress Partially Met OT Problem 2 OT Problem #2 Impaired Range of Motion OT Goal 1 Goal / Goal Update The patient will demonstrate full AROM of R thumb for flexion and extension needed to maintain grasp of items for grooming. GOAL MET; WFL DISCONTINUED 06/27/2024 R hand: IP flexion: 65 degrees MP flexion: 42 degrees Palmar abduction: 48 degrees IP flexion: 70 degrees MP flexion: 60 degrees Palmar abduction: 50 degrees Target Visit 15 Progress Partially Met OT Goal 2 Goal / Goal Update The patient will demonstrate 0/10 pain in R thumb in order to avoid discomfort during daily tasks such as dressing tasks. GOAL MET; DISCONTINUED 06/27/2024 Target Visit 15 Progress Partially Met OT Problem 3 OT Problem #3 Impaired Coordination OT Goal 1 Goal / Goal Update The patient will demonstrate WNL fine motor coordination performing 9-hole peg test without pain in <24 seconds in order to increase success with IADLs. GOAL MET; DISCONTINUED 06/27/2024 no pain during opposition; 25 seconds Target Visit 15 Progress Partially Met OT Goal 2 Goal / Goal Update The patient will demonstrate decreased edema of R hand with 18 cm measure from thenar eminence to ensure full AROM. GOAL MET; DISCONTINUE 05/14/24 Target Visit 10 Progress Met OT Goal 1 Goal / Goal Update The patient will demonstrate increased strength of R hand demonstrating 35 lbs of history professor strength and 3 lbs of lateral pinch strength needed to perform ADLs with highest level of independence. GOAL MET; DISCONTINUED; 06/27/2024 42 lbs history professor 4lb lateral pinch Target Visit 15
== END 2024-06-27 13:11 | disposition home or self-care (01) ==
LOC: CHSOT 11:14
DX: M18.11 Unilateral primary osteoarthritis of first carpometacarpal joint, right hand (principal)
CPT/HCPCS: 97110; 97530

== ENCOUNTER 2024-10-30 08:18 | Outpatient (CLI) | payer MEDICARE, SELFPAY ==
--- NOTE | ~2024-10-30 | MM_ITS ---
EXAMINATION: MM screening radha BI w toma HISTORY: Screening TECHNIQUE: Craniocaudal and mediolateral oblique 3-D tomosynthesis images were obtained and synthetic 2-D images were generated. CAD analysis was submitted and interpreted. COMPARISON: Comparison to multiple prior studies sequentially, with oldest reviewed study dated 07/2019. BREAST PARENCHYMAL COMPOSITION: Not dense: There are scattered areas of fibroglandular density. FINDINGS: There is a developing mass in the lower inner quadrant of the right breast, anterior depth. The left breast is stable without evidence for malignancy. IMPRESSION: 1. Developing right breast mass. 2. Additional mammographic views and possible breast ultrasound are recommended. BI-RADS Category 0: Incomplete: Needs additional imaging evaluation. Reviewed, dictated and finalized at location [] IMPRESSION: 1. Developing right breast mass. 2. Additional mammographic views and possible breast ultrasound are recommended . BI-RADS Category 0: Incomplete: Needs additional imaging evaluation.
--- NOTE | ~2024-10-30 | DEXA_ITS ---
Bone Density Report Name: YOSSI REDDING Age: 64 Sex: Female Ethnicity: White Date of : 1960 Indication: osteopenia; anorexia or bulimia; seizure disorder; Referring Provider: Uziel Garcia Study: Bone densitometry was performed. Exam Date: October 30, 2024 Accession number: [id number] Bone Density: Region BMD T-score Z-score Classification AP Spine(L1-L4) 1.043 0.0 1.8 Normal Femoral Neck (Left) 0.607 -2.2 -0.6 Osteopenia Total Hip (Left) 0.895 -0.4 0.9 Normal Femoral Neck (Right) 0.619 -2.1 -0.5 Osteopenia Total Hip (Right) 0.859 -0.7 0.6 Normal Femoral Neck Mean 0.613 -2.1 -0.6 Osteopenia Total Hip Mean 0.877 -0.5 0.8 Normal World Health Organization criteria for BMD impression classify patients as: Normal (T-score at or above -1.0), Osteopenia (T-score between -1.0 and -2.5), or Osteoporosis (T-score at or below -2.5). 10-year Fracture Risk(1): Major Osteoporotic Fracture 11% Hip Fracture 1.9% Reported Risk Factors: [place] (), Neck BMD=0.607, BMI=21.3 (1) FRAX(R) Version 3.08. Fracture probability calculated for an untreated patient. Fracture probability may be lower if the patient has received treatment. Previous Exams: Region Exam Age BMD T-score BMD Change BMD Change Date g/cm2 vs Baseline vs Previous AP Spine (L1-L4) 10/30/2024 64 1.043 0.0 -0.086 (-7.6%) 0.046 (4.6%)* 08/02/2023 62 0.998 -0.4 -0.132 (-11.7% -0.049 (-4.7%) 03/04/2021 60 1.046 0.0 -0.083 (-7.3%) -0.003 (-0.3%) 08/18/2018 57 1.049 0.0 -0.080 (-7.1%) -0.080 (-7.1%) 12/18/2012 52 1.129 0.7 Total Hip(Left) 10/30/2024 64 0.895 -0.4 -0.064 (-6.7%) 0.082 (10.1%)* 08/02/2023 62 0.813 -1.1 -0.146 (-15.3% 0.018 (2.3%)# 03/04/2021 60 0.795 -1.2 -0.165 (-17.2% -0.031 (-3.8%) 08/18/2018 57 0.826 -0.9 -0.133 (-13.9% -0.133 (-13.9% 12/18/2012 52 0.960 0.1 Total Hip(Right) 10/30/2024 64 0.859 -0.7 -0.044 (-4.8%) 0.028 (3.4%)* 08/02/2023 62 0.831 -0.9 -0.072 (-7.9%) 0.020 (2.5%)# 03/04/2021 60 0.811 -1.1 -0.092 (-10.2% 0.048 (6.3%)# 08/18/2018 57 0.763 -1.5 -0.140 (-15.5% -0.140 (-15.5% 12/18/2012 52 0.903 -0.3 *Denotes significance at 95% confidence level, LSC for AP Spine = 0.022 g/cm2, LSC for Total Hip = 0.027 g/cm2 # Denotes dissimilar scan types or analysis methods Clinical Information Provided by Patient: Has the following medical conditions: Anorexia or Bulimia, Any Seizure Disorders Patient maximum height was 65 Menopause Age: 48 No regular weight bearing exercise Drinks caffeinated beverages Onset of menses at age 12 Number of children 1 Impression: The patient has low bone mass, based on the Left Femoral Neck T-score. No significant bone loss was observed. Discussion: BONE DENSITY IS LOW AT ONE OR MORE SKELETAL SITES. This patient's lowest T-score is low at one or more skeletal sites. It meets the World Health Organization's (WHO) criteria for ?low bone mass? (T-score between -1.0 and -2.5). The patient's 10-year risk of fracture as calculated by FRAX is less than the threshold where pharmacological therapy is recommended by the National Osteoporosis Foundation (NOF). However, all treatment decisions require clinical judgment and consideration of individual patient factors, including patient preferences, comorbidities, previous drug use, risk factors not captured in the FRAX model (e.g., frailty, falls, vitamin D deficiency, increased bone turnover, interval significant decline in bone density) and possible under or overestimation of fracture risk by FRAX. The patient should follow a healthful lifestyle (good nutrition with adequate calcium and vitamin D, and appropriate weight-bearing exercise). Follow-Up: Consider repeating this study in 2 to 3 years to reassess this patient's status, or sooner if there is some new clinical indication. Reported by: SHINE on 10/30/2024 8:59:00 AM. Reviewed, dictated and finalized at location A.
--- OUTSIDE RECORDS SUMMARY | 2024-10-30 08:26 | XMS_ITS | Encounter Summary ---
Author Organization [facility] Healthcare Address [address] [place] [address] Care Team Providers Care Performance Improvement Manager Name Role Phone Uziel Garcia MD Primary Care Provider [phone] Encounter Details Date Type Department Care Team (Late st Contact Info) Description 11/06/2021 Orders Only [facility] Information Management [address] [place] [id number] Scanning, Provider Social History Tobacco Use Types Packs/Day Years Used Date Smoking Tobacco: Never Smokeless Tobacco: Never Alcohol Use Standard Drinks/Week Comments No 0 (1 standard drink = 0.6 oz pur e alcohol) Comments Unknown Sex and Gender Information Value Date Recorded Sex Assigned at Not on file 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 Gender Identity Not on file Sexual Orientation Not on file documented as of this encounter Plan of Treatment Not on file documented as of this encounter Procedures Procedure Name Priority Date/Time Associated Diagnosis Comments CARDIOLOGY DOCUMENT SCAN 11/06/2021 documented in this encounter Results * Cardiology Document Scan (11/06/2021) Anatomical Region Laterality Modality Other us Provider Scanning CV CARDIAC SERVICES PROCEDURES Final Result documented in this encounter Visit Diagnoses Not on filedocumented in this encounter Care Teams Performance Improvement Manager Relationship Specialty Start Date End Date Uziel Garcia MD [address] [place] [address] PCP - General 05/20/11 documented as of this encounter
--- OUTSIDE RECORDS SUMMARY | 2024-10-30 08:26 | XMS_ITS | Continuity of Care Document ---
Author Organization [facility] - Main Address [address] [facility] [address] [place] [address] Insurance Providers Payer Plan Claims Address Claims Phone Policy Number Group Number Relation Employer Guarantor Name Guarantor Guarantor Address Guarantor Phone [employer] [facility] [id number] [place] [employer] 1960 [address] [place], [place] [id number] [employer] [id number] [place] [employer] 1960 [address] [place], [place] [id number] [employer] [id number], [place] [address] tel:[phone] [place] [employer] 1960 [address] [place], [place] [id number] Problems Unknown Problems Results No Results Allergies, adverse reactions, alerts No known allergies and adverse reactions Medications No administered medications reported Vital Signs No vital signs reported Social History No smoking Hx information available
--- OUTSIDE RECORDS SUMMARY | 2024-10-30 08:26 | XMS_ITS | Data Portability ---
Author Organization [employer], Main Office Address [address] [place] [address] Care Team Providers Care Dry Mill Worker Name Role Phone FRANKIE NÚÑEZ Primary Care Provider [phone] FRANKIE NÚÑEZ Referring Provider Assessment No assessment recorded. Plan of Treatment Reminders Order Date Submit Date Provider Last Modified By Organization Details Last Modified Time Details Appointments None record ed. Lab None record ed. Referral None record ed. Procedures None record ed. Surgeries None record ed. Imaging None record ed. Medication Orders None record ed. Patient TargetsNo targets recorded. Patient InstructionsNo instructions recorded. Reason for Referral None Reported. Results Created Date Observation Date Name Description Value Unit Range Abnormal Flag Note LastModifiedBy Organization Detail LastModifiedTime 04/09/19 23 11/26/2021 elect romyo gram + nerve condu ction study No observ ation record ed. [id number] Not Available 06/03/2022 01:54:54 04/21/19 23 04/21/2022 rhyth m strip , EKG* No observ ation record ed. [id number] Not Available 06/03/2022 01:54:54 Result Notes None recorded. Problems Name Problem SNOMED Code Status Onset Date Resolution Date Notes Provider Name and Address Organization Details Recorded Time Pain of left hand 3133581755029 03 Active 2022 ALFONSO Conner, [employer] 3 14:08:31 Carpal tunnel syndrome of left wrist 2431746911655 02 Active 2022 ALFONSO Conner, [employer] 3 14:08:41 Ulnar nerve entrapment at elbow 801428957 Active 2022 ALFONSO Conner, [employer] 3 14:08:49 Problem Notes None recorded. Procedures Surgical History Date Name Laterality Status Provider Name and Address Organization Details Recorded Time 0 Carpal tunnel surgery completed Not Available [facility] 06/03/2022 01:53:05 8 Carpal tunnel surgery completed Not Available [facility] 06/03/2022 01:53:05 0 procedure on brain completed Not Available [facility] 06/03/2022 01:53:05 5 ligation of fallopian tube completed Not Available [facility] 06/03/2022 01:53:05 Imaging Results None recorded. Procedure Notes None recorded. Medical Equipment None Reported. Allergies Allergen ID Allergen Name Allergen Category Reaction Reaction Severity Criticality Documentation Date Start Date Code Code System Note Provider Name and Address Organization Details Recorded Time 37938 Substance with sulfonami de structure and antibacte rial mechanism of action (substanc e) medicatio n Not available Not available Not available 06/03/2022 33924 8003 SNOMED Not Available [facility] 3 01:54:47 45739 Requip medicatio n Not available Not available Not available 06/03/2022 91501 1 RxNorm Not Available [facility] 3 01:54:47 96487 prazosin medicatio n Not available Not available Not available 06/03/2022 8629 RxNorm Not Available [facility] 3 01:54:47 94273 Product containin g penicilli n (product) medicatio n Not available Not available Not available 06/03/2022 34939 8001 SNOMED Not Available [facility] 3 01:54:47 07781 Elavil medicatio n Not available Not available Not available 06/03/2022 73055 RxNorm Not Available [facility] 3 01:54:47 88077 Dilantin medicatio n Not available Not available Not available 06/03/2022 33361 0 RxNorm Not Available [facility] 3 01:54:48 21272 Ativan medicatio n Not available Not available Not available 06/03/202245311 9 RxNorm Not Available [facility] 3 01:54:48 77514 Abilify medicatio n Not available Not available Not available 06/03/2022 00905 3 RxNorm Not Available [facility] 3 01:54:48 Medications Name Sig Start Date Stop Date Status Note LastModified by Organization Details LastModified Time fluoxetine 40 mg capsule Take 2 capsules every day by oral route. active Not Available Not Available No t Available atorvastatin 40 mg tablet Take 1 tablet every day by oral route. active Not Available Not Available No t Available hydralazine 10 mg tablet active Not Available Not Available No t Available lamotrigine 200 mg tablet Take 1 tablet twice a day by oral route. active Not Available Not Available No t Available tizanidine 4 mg tablet active Not Available Not Available No t Available hydrocodone 5 mg-acetaminoph en 325 mg tablet active Not Available Not Available Not Available amlodipine 10 mg tablet active Not Available Not Available No t Available pantoprazole 40 mg tablet,delayed release Take 1 tablet every day by oral route. active Not Available Not Available No t Available topiramate 200 mg tablet Take 1 tablet twice a day by oral route. active Not Available Not Available No t Available losartan 100 mg tablet Take 1 tablet every day by oral route. active Not Available Not Available No t Available fluticasone propionate 50 mcg/actuation nasal spray,suspensi on active Not Available Not Available Not Available Klor-Con M10 mEq tablet,extende d release active Not Available Not Available No t Available metoprolol tartrate 25 mg tablet active Not Available Not Available Not Available Zanaflex 4 mg capsule Take 1 capsule every 6 hours by oral route. 2022 active Not Available Not Available Not Avai lable potassium acetate 2022 active Not Available Not Available Not Avai lable Fluticasone Propionate (Nasal) 2022 active Not Available Not Available Not Avai lable metoprolol succinate 2022 active Not Available Not Available Not Avai lable Xarelto 15 mg tablet active Not Available Not Available Not Available amlodipine 1 mg/mL oral solution Take 5 mL every day by oral route. 2022 active Not Available Not Available Not Avai lable Vitals Date Recorded Body height Body weight Provider Name and Address Organization Details Last Updated DateTime 04/20/2022 165.1 cm 77892.27 g Not Available [facility] 0 06/03/2022 01:53:37 Date Recorded Body mass index (BMI) Body height Body weight Provider Name and Address Organization Details Last Updated DateTime 05/19/2022 20.3 kg/m2 165.1 cm 74614.27 g Not Available [employer] 06/03/2022 01:53:37 Date Recorded Body height Body mass index (BMI) Body weight Provider Name and Address Organization Details Last Updated DateTime 07/20/2022 165.1 cm 20.8 kg/m2 81918.05 g ALFONSO Conner [place] [facility] 07/20/2022 14:08:09 Social History Question Answer Notes LastModified by [employer] Details LastModified Time Tobacco Smoking Status Never Smoker Not Available [facility] 06/03/2022 01:52:46 What Was The Date Of Your Most Recent Tobacco Screening? 04/20/2022 [id number] Information not available 06/03/2022 Sex: Unknown Functional Status Question Answer Note LastModified by [employer] Details LastModified Time What is your level of alcohol consumption? None [id number] Information not available 06/03/2022 Mental Status None recorded. Family History Relationship Description Onset Age of this Age Resolved Age Notes LastModified by Organization Details LastModified Time Father Family history of malignant neoplasm [id number] Not available 06/03/2022 01:53:07 Mother Family history of malignant neoplasm [id number] Not available 06/03/2022 01:53:07 Medical History Condition Response ARTHRITIS Y USE OF BLOOD THINNERS Y SKIN PROBLEMS Y HEART DISEASE/HEART PROBLEMS Y ANEMIA/BLOOD DISORDER Y Gynecological HistoryNo gynecological history recorded. Obstetrics History GPAL:G 0 P 0 0 0 0 Past Encounters Encounter ID Performer Location Encounter Start Date Encounter Closed Date Diagnosis/Indication Diagnosis SNOMED-CT Code Diagnosis ICD10 Code Diagnosis Note [id number] MD TAME[facility] [address] [place] [address] 04/20/2022 00:00:00 04/20/2022 11:17:40 [id number] MD [facility] [address] [place] [address] 05/19/2022 00:00:00 05/19/2022 14:32:27 [id number] Jack Figueroa MD [facility] [address] [place] [address] 07/20/2022 14:06:32 07/20/2022 15:57:33 Pain of left hand 7400927502 91548 M79.642 Carpal sachin nir syndrome of left wrist 2467667972 37745 G56.02 patient can work on nerve and tendon glides and strengthen ing as tolerated she is doing quite well at this point we will see her back only if any problems arise Ulnar nerv e entrapment at elbow 436259148 G56.22 Health Concerns Section Related Observation LastModified by Organization Detai ls LastModified Time None Recorded Concern Status LastModified by Organization Details LastModified Time None Recorded Advance Directives Directive None Recorded Payers Insurance Date Sequence Insurance Name Policy Number Policy Go Covered Member ID Go Member ID Guarantor Name 07/22/2022 1 [employer] [id number] Rachele Wilkins [id number] Rachele Wilkins 07/22/2022 1 [employer] (MEDICARE REPLACEMENT/ ADVANTAGE - PPO) [id number] Rachele Wilkins [id number] Rachele Wilkins OBGyn Episode No OBEpisode recorded.
--- OUTSIDE RECORDS SUMMARY | 2024-10-30 08:26 | XMS_ITS | Clinical Summary ---
Author Organization [facility] Address [address] [place] [phone] Phone Care Team Providers Care Wellness Instructor Name Role Phone Unavailable Primary Care Provider Unavailabl e Medications mirtazapine (REMERON) 15 MG tablet 3qhs 0 02/02/2013 Active docusate sodium (COLACE) 100 MG capsule 02/02/2013 Active lamoTRIgine (LAMICTAL) 150 MG tablet 3 daily 02/02/2013 Active ALPRAZolam (XANAX) 0.5 MG tablet 02/02/2013 Active topiramate (TOPAMAX) 100 MG tablet 1 bid 0 02/02/2013 Active FLUoxetine (PROZAC) 20 MG capsule 4 daily 0 02/02/2013 Active polyethylene glycol (MIRALAX) powder 02/05/2013 Active tiZANidine (ZANAFLEX) 4 MG tablet 02/02/2013 Active HYDROcodone-acet aminophen (LORCET PLUS) 10-325 MG per tablet 02/02/2013 Active SUMAtriptan (IMITREX) 25 MG tablet 02/02/2013 Active Active Problems Problem Noted Date Diagnosed Date Abnormal result of kidney function study 013 Anorexia nervosa 02/05/2013 Migraine, not intractable, without status migrai nosus 02/05/2013 Edema 02/05/2013 Overview (06/17/2018): Converted unresolved ICD9, potential mismatch. Social History Tobacco Use Types Packs/Day Years Used Date Smoking Tobacco: Never Assessed Comments Unknown Sex and Gender Information Value Date Recorded Sex Assigned at Not on file Legal Sex Female 9:30 AM MST Gender Identity Not on file Sexual Orientation Not on file Last Filed Vital Signs Vital Sign Reading Time Taken Comments Blood Pressure 132/70 04/02/2013 12:01 AM PEARL HAND Pulse 72 04/02/2013 12:01 AM PEARL HAND Temperature 36 C (96.8 F) 04/02/2013 12:01 AM PEARL HAND Respiratory Rate - - Oxygen Saturation - - Inhaled Oxygen Concentration - - Weight 68 kg (150 lb) 04/02/2013 12:01 AM PEARL HAND Height 167.6 cm (5' 6) 04/02/2013 12:01 AM PEARL HAND Body Mass Index 24.21 04/02/2013 12:01 AM PEARL HAND Plan of Treatment Not on file
--- OUTSIDE RECORDS SUMMARY | 2024-10-30 08:27 | XMS_ITS | Referral Summary ---
Author Organization [facility] Address [address] [place] [address] Care Team Providers Care Tank Bottom Assembler Name Role Phone Uziel Garcia MD Primary Care Provider [phone] Allergies Active Allergy Reactions Criticality Noted Date Comments Amitriptyline Other (See comments) Low 06/06/2020 Loss of consciousness Aripiprazole Other (See comments) Low 06/06/2020 Loss of consciousness Ciprofloxacin Other (See comments),Itching High 10/25/2022 Patient on tizanidine, contraindication with ciprofloxacin due to neurotoxicity and hemodynamic collapse. Gabapentin Other (See comments) Low Loss of consciousness Hydroxyzine Other (See comments) Low 10/20/2022 Pt unsure of reaction Lorazepam Mental status changes,Other (See comments) Low 09/01/2023 Agitation and violent behavior Meropenem Rash Medium 11/30/2022 Generalized rash on week 5 of therapy Nortriptyline Other (See comments) Low Loss of consciousness Penicillins Anaphylaxis,Other (See comments) High 09/01/2023 Previously tolerated cefepime (10/22/2022) Phenytoin Seizures High Prazosin Other (See comments) Low 06/06/2020 Memory loss Ropinirole Other (See comments) Low 09/01/2023 Loss of consciousness Sulfa (Sulfonamide Antibiotics) Rash Medium 09/01/2023 Trazodone Other (See comments) Low 09/14/2022 Loss of consciousness Zolpidem Other (See comments) Low 09/14/2022 Loss of consciousness Medications atorvastatin (LIPITOR) 40 mg tabletIndications :coronary artery disease,hyperlipi demia Take 1 tablet (40 mg total) by mouth nightly 8 Active tiZANidine (ZANAFLEX) 4 mg tabletIndications :Muscle Spasm Take 1 tablet (4 mg total) by mouth 2 (two) times a day Active fluticasone (FLONASE) 50 mcg/actuation nasal spray Administer 1 spray into each nostril nightly Active FLUoxetine (PROzac) 40 mg capsuleIndication s:depression Take 2 capsules (80 mg total) by mouth every morning 8 Active lamoTRIgine (LaMICtal) 200 mg tabletIndications :SZ Take 1 tablet (200 mg total) by mouth 2 (two) times a day 9 Active topiramate (TOPAMAX) 200 mg tablet TAKE ONE TABLET BY MOUTH TWICE A DAY 60 tablet [address] (PROTONIX) 40 mg EC tabletIndications :Treatment of Non-Bleeding Gastric Disorder Take 1 tablet (40 mg total) by mouth every morning 1 Active hydrALAZINE (APRESOLINE) 10 mg tabletIndications :hypertension Take 1 tablet (10 mg total) by mouth 2 (two) times a day 2 Active SUMAtriptan (IMITREX) 6 mg/0.5 mL injection Inject under the skin as needed for migraine 4 Active amLODIPine (NORVASC) 10 mg tabletIndications :hypertension Take 1 tablet (10 mg total) by mouth every morning Active metoprolol tartrate (LOPRESSOR) 25 mg immediate release tabletIndications :Paroxysmal atrial fibrillation (HCC) TAKE 1 TABLET TWICE A DAY 180 tablet 3 4 Active MULTIVITAMIN ORAL Take by mouth every morning Active HYDROcodone-aceta minophen (NORCO) 5-325 mg per tabletIndications :Pain Take 1 tablet by mouth every 4 (four) hours as needed for pain 20 tablet 4 Active fluorouraciL (EFUDEX) 5 % cream 5 Active triamcinolone (KENALOG) 0.1 % cream 5 Active rivaroxaban (XARELTO) 15 mg tabletIndications :atrial fibrillation Take 1 tablet (15 mg total) by mouth daily with dinner 90 tablet 3 5 Active doxycycline 100 mg tablet 5 Active mupirocin (BACTROBAN) 2 % ointment 5 Active Hospital, Clinic, or Other Facility Administered Medication Ordered Dose Route Frequency Start Date End Date Status onabotulinumtoxin A (BOTOX) 200 unit injection 200 UnitsIndications:Intract able chronic migraine without aura and without status migrainosus 200 Units IM Every 3 months 03/07/2020 Ac tive Active Problems Problem Noted Date Diagnosed Date Dehydration 12/08/2023 Other specified disorders of kidney and ureter 0 12/08/2023 Primary osteoarthritis of fi rst carpometacarpal joint of right hand 11/18/2023 Lesion of ulnar nerve, right upper limb 11/17/19 Cubital tunnel syndrome on right 10/21/2023 Age-related osteoporosis wit hout current pathological fracture 10/20/2023 Pain in right wrist 10/20/2023 Pain in right shoulder 10/20/2023 Arthropathy of lumbar facet joint 09/01/2023 Cervico-occipital neuralgia 09/01/2023 Inflammation of sacroiliac joint 09/01/2023 Malignant melanoma 09/01/2023 Myofascial pain 09/01/2023 Foot osteomyelitis, left 11/16/2022 Assessment & Plan (11/16/2022 10:40 AM CDT): - Doing well on IV meropenem with no concern for worsening infection on exam today. Surgical site is healing very well. She is tolerating antibiotics without adverse effects. - Continue IV meropenem until next ID visit with plans for 6 weeks of therapy for treatment of L foot osteomyelitis. Do not stop prior to next ID visit. - Continue weekly CBC and CMP while on IV antibiotics - Discussed with patient the rational for treatment, culture results, risk of recurrent infection, signs/symptoms of recurrent infection, and to contact ID clinic with any questions or concerns GERD (gastroesophageal reflux disease) 3 Risk factors for obstructive sleep apnea 023 Bradycardia 10/26/2022 Assessment & Plan (10/27/2022 12:41 PM CDT): Suspect related to her beta-chandni (had been receiving home dose of 25 mg metoprolol tartrate bid). She is asymptomatic and hemodynamically stable. --Recommend holding home metoprolol on discharge, will message her mathematics academic chair Dr. Ahumada regarding medication changes. Encouraged patient to have follow up outpatient. Non healing left heel wound 10/20/2022 Assessment & Plan (10/24/2022 7:04 PM CDT): S/p Mohs for SCC left heel, s/p radial free flap, with wound growing P aeruginosa and Achromobacter sp, both susceptible to meropenem. On meropenem now. Abscess of parotid masseteric region of face 08/2022 SCC (squamous cell carcinoma) 09/13/2022 Chronic anticoagulation 08/31/2022 Skin ulcer of left heel with fat layer exposed 0 07/27/2022 Carpal tunnel syndrome of left wrist 07/20/2022 Pain of left hand 07/20/2022 Ulnar nerve entrapment at elbow 07/20/2022 Basal cell carcinoma (BCC) of foot 07/07/2022 Overview (09/01/2023): Left heel 06/19/2019 Open wound of heel 05/13/2022 Venous insufficiency (chronic) (peripheral) 11/02 Atypical chest pain 11/11/2021 Hypercholesterolemia 11/11/2021 Essential hypertension 11/11/2021 Assessment & Plan (10/27/2022 1:50 PM CDT): Home meds include metoprolol tartrate 25 bid and hydralazine 10 mg bid. --Recommend stopping metoprolol in the setting of bradycardia. In touching base with her mathematics academic chair Dr. Ahumada, he would prefer to keep patient on hydralazine --Continue lisinopril 10 mg daily, this will be a new medication on discharge. Continue home hydralazine per outpatient mathematics academic chair. Afib 11/11/2021 Assessment & Plan (10/26/2022 4:48 PM CDT): Her [id number] score is 2. At her last visit on 12/2021 with the [facility], had MPI which showed LVEF 79%, perfusion normal. She also had a 30 day event monitor on 11/2021 showing paroxysmal afib/flutter with longest episode 33 minutes, Afib burden less than 1%. She is on xarelto at home. --She is at relatively lower risk for thromboembolism, but would recommend restarting Xarelto as soon as able to (when operative management is completed) Chronic pain of left ankle 05/13/2015 Polypharmacy 05/13/2015 Insomnia 05/13/2015 Generalized anxiety disorder 05/13/2015 Depressive disorder 05/13/2015 Migraine, chronic, without aura, intractable 12/2015 Blood in urine 03/19/2013 Neuropathy 03/19/2013 Migraine, unspecified, not i ntractable, without status migrainosus 02/05/2013 Anorexia nervosa 02/05/2013 Local edema 02/05/2013 Overview (09/01/2023): Converted unresolved ICD9, potential mismatch. Renal function test abnormal 02/05/2013 Social History Tobacco Use Types Packs/Day Years Used Date Smoking Tobacco: Never Cigarettes Passive Smoke Exposure: Never Smokeless Tobacco: Never Tobacco Cessation:Counseling Given: Not Answered Alcohol Use Standard Drinks/Week Comments No 0 (1 standard drink = 0.6 oz pur e alcohol) AUDIT-C Answer Date Recorded Q1: How often do you have a drink containing alcohol? Never 02/06/2024 Q2: How many drinks containi ng alcohol do you have on a typical day when you are drinking? Patient does not drink Q3: How often do you have si x or more drinks on one occasion? Never 02/06/2024 Personal Safety Answer Date Recorded Have you ever been in or are you currently in a harmful physical or emotional relationship or is someone making you feel afraid or unsafe? Denies 02/06/2024 Comments No Sex and Gender Information Value Date Recorded Sex Assigned at Not on file Legal Sex Female 6:46 PM HEALTH CARE ANALYST Gender Identity Not on file Sexual Orientation Not on file Last Filed Vital Signs Vital Sign Reading Time Taken Comments Blood Pressure 110/68 05/04/2024 8:43 AM HEALTH CARE ANALYST Pulse 58 05/04/2024 8:43 AM HEALTH CARE ANALYST Temperature 36.2 C (97.2 F) 02/06/2024 10:30 AM HEALTH CARE ANALYST Respiratory Rate 18 02/06/2024 10:50 AM HEALTH CARE ANALYST Oxygen Saturation 99% 05/04/2024 8:43 AM HEALTH CARE ANALYST Inhaled Oxygen Concentration - - Weight 59.9 kg (132 lb) 05/04/2024 8:43 AM HEALTH CARE ANALYST Height 165.1 cm (5' 5) 05/04/2024 8:43 AM HEALTH CARE ANALYST Body Mass Index 21.97 05/04/2024 8:43 AM HEALTH CARE ANALYST Plan of Treatment Not on file Medical Devices Implanted Type Area Code Machine Operator Device Identifier Shelf Expiration Date Model / Serial / Lot Integra SiC ProcessingciLegalGuru Ciara Integra 2x2in Mesh Dressing Biological Bovine Collagen [id number] - [id number] Implanted:Qty: 1 on 10/12/2022 by Dinh Gillespie MD at [facility] [employer] [facility] Ciara [id number] 12/03/2023 [id number] / / [id number] Biocomposites Stimulan Rapid Cure Kit Paste Public Interviewer 5cc 12.5cc Bone Void 620-005 - [id number] Implanted:Qty: 1 on 10/22/2022 by Dinh Gillespie MD at [facility] Left: Calcaneus Biocomposites 04/03/2025 620-005 / / Nuzzel Mineral Microvascular 2mm Ring Pin Protective Cover Jaw Assembly Latex Free [id number] - [id number] Implanted:Qty: 1 on 10/22/2022 by Dinh Gillespie MD at [facility] Left: Calcaneus Synovis Oncothyreon Jeremi [id number] 06/02/2027 [id number] / / [id number]- [id number] Synovis RetailNext Mineral Microvascular 2mm Ring Pin Protective Cover Jaw Assembly Latex Free [id number] - [id number] Implanted:Qty: 1 on 10/22/2022 by Dinh Gillespie MD at [facility] Left: Calcaneus Synovis Oncothyreon Jeremi [id number] 06/02/2027 [id number] / / [id number]- [id number] Arthrex Inc Internalbrace Kit Hand Wrist Set Implant Ligament Augmentation Ar-8978-Cp - [id number] Implanted:Qty: 1 on 02/06/2024 by Rozina Gaxiola MD at [facility] Right: Thumb Arthrex Inc [id number] 03/03/2028 AR-8978 - CP / / [id number] Insurance T MEDICARE T MEDICARE AET MEDICARE [facility] Address: [facility] [id number] [place] [id number] Advance Directives For more information, please contact: [phone] * Full Code (Latest Code Status on File) Date Activated Date Inactivated Comments 10/22/2022 7:00 PM 10/28/2022 10:55 PM Care Teams Tank Bottom Assembler Relationship Specialty Start Date End Date Uziel Garcia MD [address] [place] [address] PCP - General 05/20/11
--- OUTSIDE RECORDS SUMMARY | 2024-10-30 08:27 | XMS_ITS | Clinical Summary ---
Author Organization [facility] Address [address] [place] [address] Care Team Providers Care Emergency Room Clinician Name Role Phone Uziel Garcia MD Primary Care Provider [phone] Allergies Active Allergy Reactions Criticality Noted Date [...] home metoprolol on discharge, will message her charging manipulator Dr. Ahumada regarding medication changes. Encouraged patient [...] of bradycardia. In touching base with her charging manipulator Dr. Ahumada, he would prefer to keep patient on hydralazine --Continue lisinopril 10 mg daily, this will be a new medication on discharge. Continue home hydralazine per outpatient charging manipulator. Afib 11/11/2021 Assessment & Plan (10/26/2022 4:48 PM CDT): Her [id number] score is 2. At her last visit [...] potential mismatch. Renal function test abnormal 02/05/2013 Surgical History Surgery Date Site/Laterality Comments OOPHORECTOMY 04/04/2000 - 04/03/2001 Right ovary removed BRAIN SURGERY 03/04/1990 - 04/03/1990 meningioma TONSILLECTOMY 04/04/1963 - 04/03/1964 ELBOW SURGERY 04/04/2022 - 04/03/2023 Left NEUROPLASTY / TRANSPOSITION MEDIAN NERVE AT CARPAL TUNNEL BILATERAL 04/04/2002 - 04/03/2003 Bilateral CARPAL TUNNEL RELEASE 04/04/2008 - 04/03/2009 Bilateral CARPAL TUNNEL RELEASE 04/04/2022 - 04/03/2023 Left DEBRIDEMENT FOOT 04/04/2022 - 04/03/2023 Left 4 surgeries left heel APPENDECTOMY 04/04/1963 - 04/03/1964 TUBAL LIGATION 04/04/1987 - 04/03/1988 ENDOMETRIAL ABLATION 04/04/1989 - 04/03/1990 ULNAR NERVE REPAIR 10/31/2023 Right decompression Medical History Medical History Date Comments Depression Depression Seizure disorder (HCC) Seizure d isorder Hx Other Medical Headache, migra ine Renal tubulo-interstitial disease Kidney infection - (Added by TW Conv) Personal history of urinary infection History of bladder infections - (Added by TW Conv) Atrial fibrillation (HCC) PONV (postoperative nausea and vomiting) Anxiety 1989 Migraines 1990 Hypertension 2010 Neuromuscular disorder (HCC) 2010 Peptic ulceration 1999 Kidney stone 1994 GERD (gastroesophageal reflux disease) Cancer (HCC) Family History Medical History Relation Name Comments Bladder Cancer Father Isela Lewis Family histor y of malignant neoplasm of urinary bladder - (Added by TW Conv) Cancer Father Isela Lewis Cancer; Prostate cancer Father Isela Lewis Prostate can cer - (Added by TW Conv) Cancer Mother Missy Yadav Cancer; Lung cancer Mother Missy Yadav Family histo ry of lung cancer - (Added by TW Conv) Migraines Mother Missy Yadav Migraine; Cancer Other 1 Family history of Cancer; Migraines Other 2 Family history of Migraine; Cancer Sister Christie Navarro Thyroid cancer Sister Christie Navarro Family histor y of malignant neoplasm of thyroid - (Added by TW Conv) Anesthesia problems Neg Hx Malig Hyperthermia Neg Hx Pseudochol deficiency Neg Hx Relation Name Status Comments Father Isela Lewis Mother Missy Yadav Other 1 Other 2 Sister Christie Navarro Social History Tobacco Use Types Packs/Day Years [...] on file Legal Sex Female 6:46 PM CONCRETE FINISHER APPRENTICE Gender Identity Not on file Sexual Orientation Not on file Obstetrics History Last Filed Vital Signs Vital Sign Reading Time Taken Comments Blood Pressure 110/68 05/04/2024 8:43 AM CONCRETE FINISHER APPRENTICE Pulse 58 05/04/2024 8:43 AM CONCRETE FINISHER APPRENTICE Temperature 36.2 C (97.2 F) 02/06/2024 10:30 AM CONCRETE FINISHER APPRENTICE Respiratory Rate 18 02/06/2024 10:50 AM CONCRETE FINISHER APPRENTICE Oxygen Saturation 99% 05/04/2024 8:43 AM CONCRETE FINISHER APPRENTICE Inhaled Oxygen Concentration - - Weight 59.9 kg (132 lb) 05/04/2024 8:43 AM CONCRETE FINISHER APPRENTICE Height 165.1 cm (5' 5) 05/04/2024 8:43 AM CONCRETE FINISHER APPRENTICE Body Mass Index 21.97 05/04/2024 8:43 AM CONCRETE FINISHER APPRENTICE Plan of Treatment Health Maintenance Due Date Last Done Comments Breast Cancer Screening-Mammogram 1958 Colon Cancer Screening-Colonoscopy 1958 Depression Screening 1958 Hepatitis C Screening 1958 Osteoporosis Screening-Bone Density Scan 1958 DTaP/Tdap/Td Vaccine (1 - Tdap) 1969 Hepatitis B Screening 1976 Zoster Vaccine (1 of 2) 2008 Pneumococcal vaccine 65+ (2 of 2 - PPSV23) 02/09/2019 02/09/2018 Well Visit 65+ 09/30/2023 Influenza Vaccine (#1) 2024 9, 02/09/2018, 11/25/2016, Additional history exists Fall Risk Assessment 02/05/2025 02/06/2024, 11/17/19 Medical Devices Implanted Type Area Bicycle Ii Assembler Device Identifier Shelf Expiration Date Model / Serial / Lot Integra Lifesciences Ciara Integra 2x2in Mesh Dressing Biological Bovine Collagen [id number] - [id number] Implanted:Qty: 1 on 10/12/2022 by Dinh Gillespie MD at [facility] Integra Lifesciences Ciara [id number] 12/03/2023 [id number] / / [id number] Biocomposites Stimulan Rapid Cure Kit Paste Oracle Applications Analyst 5cc 12.5cc Bone Void [id number] - [id number] Implanted:Qty: 1 on 10/22/2022 by Dinh Gillespie MD at [facility] Left: Calcaneus Biocomposites 04/03/2025 620-005 / / Synovis Bomberbot Jeremi Landaverde Microvascular 2mm Ring Pin Protective Cover Jaw Assembly Latex Free [id number] - [id number] Implanted:Qty: 1 on 10/22/2022 by Dinh Gillespie MD at [facility] Left: Calcaneus Synovis Micro Companies Jeremi [id number] 06/02/2027 [id number] / / [id number]- [id number] Synovis Micro Companies Allian Sunflower Microvascular 2mm Ring Pin Protective Cover Jaw Assembly Latex Free [id number] - [id number] Implanted:Qty: 1 on 10/22/2022 by Dinh Gillespie MD at [facility] Left: Calcaneus Synovis Micro Fourteen IP Jeremi [id number] 06/02/2027 [id number] / / [id number]- [id number] Arthrex Inc Internalbrace Kit Hand Wrist Set Implant Ligament Augmentation Ar-8978-Cp - [id number] Implanted:Qty: 1 on 02/06/2024 by oRzina Gaxiola MD at [facility] Right: Thumb Arthrex Inc [id number] 03/03/2028 AR-8978 - CP / / [id number] Insurance AETNA MEDICARE AETNA MEDICARE [facility] MEDICARE T MEDICARE Advance Directives For more information, please contact: [phone] * Full Code (Latest Code Status on File) Date Activated Date Inactivated Comments 10/22/2022 7:00 PM 10/28/2022 10:55 PM Care Teams Emergency Room Clinician Relationship Specialty Start Date End Date Uziel Garcia MD [address] [place] [id number] [facility] - General 05/20/11
--- OUTSIDE RECORDS SUMMARY | 2024-10-30 08:27 | XMS_ITS | Patient Health Record ---
Author Organization [facility] Address [address] [facility] [address] [place] [address] Care Team Providers Care Seismology Teacher Name Role Phone Tavo Pulido Unavailable [phone] Reason For Referral No Information Medications Medication SIG (Take, Route, Frequency, Duration) Notes Start Date End Date Status Topiramate 100 MG Oral Ac tive Topamax 200 MG Oral Activ e tiZANidine HCl 4 MG Oral Active Remeron 45 mg Oral *Pick strength-form from [email or web address] for eRX* Active SUMAtriptan Succinate 50 MG Oral Active Zolpidem Tartrate 5 MG Oral Active HYDROCODONE 10 MG-ACETAMINOPHEN 325 MG/15 ML (15 ML) ORAL SOLUTION *Reorder from [email or web address] for eRx and Interaction Alerts* Active Nefazodone HCl 250 mg Oral Active Cephalexin 500 MG Oral Ac tive Vicodin 5-300 MG Oral *Reorder from [email or web address] for eRx and Interaction Alerts* Active Topiramate 200 MG Oral Ac tive Triamterene-HCTZ 37.5-25 MG Oral Active LaMICtal 150 MG Oral Acti ve Titanic Carbonate 150 MG Oral Active Imiquimod 5 % External Active OLANZapine 2.5 MG Oral Ac tive Xanax 0.5 MG Oral Active Zanaflex 4 MG Oral Active Titanic Carbonate 300 MG Oral Active Pramipexole Dihydrochloride 0.25 MG Oral Acti ve PROzac 40 MG Oral Active Azithromycin 250 MG Oral Active Furosemide 40 MG Oral Act juwan FLUoxetine HCl 40 MG Oral Active MiraLax 17 gram Oral *Pick strength-form from Stemg[employer]pan for eRX* Active OLANZapine 5 MG Oral Acti ve Mirtazapine 15 MG Oral Ac tive FLUoxetine HCl 20 MG Oral Active Lunesta 3 MG Oral Active lamoTRIgine 150 MG Oral A ctive Plan Of Treatment No Information
== END 2024-10-30 08:19 | disposition home or self-care (01) ==
PROVIDERS: PCP Internal Medicine; Visit Provider Internal Medicine
DX: Z12.31 Encounter for screening mammogram for malignant neoplasm of breast (principal); Z78.0 Asymptomatic menopausal state; M85.89 Other specified disorders of bone density and structure, multiple sites; R92.8 Other abnormal and inconclusive findings on diagnostic imaging of breast
CPT/HCPCS: 77063; 77067; 77080

== ENCOUNTER 2024-11-01 08:39 | Outpatient (CLI) | payer MEDICARE, SELFPAY ==
--- OUTSIDE RECORDS SUMMARY | 2024-11-01 08:46 | XMS_ITS ---
Author Organization [facility] Address [address] [place] [address] Care Team Providers Care Blackener Name Role Phone Uziel Garcia MD Primary Care Provider [phone] Active Problems Problem Noted Date Diagnosed Date Skin ulcer of left heel with fat layer exposed ([facility]/HCC HHS/HCC) 07/27/2022 Local edema 07/27/2022 Chronic pain of left ankle 07/27/2022 Basal cell carcinoma (BCC) of foot 07/07/2022 Overview (07/07/2022): Left heel 06/19/2019 Open wound of heel 05/13/2022 Current Treatment and Therapy Plans No current plan information found. Past Treatment and Therapy Plans
--- OUTSIDE RECORDS SUMMARY | 2024-11-01 08:46 | XMS_ITS | Referral Summary ---
Author Organization [facility] Address [address] [place] [address] Care Team Providers Care Bobbin Disker Name Role Phone Uziel Garcia MD Primary Care Provider [phone] Allergies Active Allergy Reactions Criticality Noted Date [...] home metoprolol on discharge, will message her emergency man Dr. Ahumada regarding medication changes. Encouraged patient [...] of bradycardia. In touching base with her emergency man Dr. Ahumada, he would prefer to keep patient on hydralazine --Continue lisinopril 10 mg daily, this will be a new medication on discharge. Continue home hydralazine per outpatient emergency man. Afib 11/11/2021 Assessment & Plan (10/26/2022 4:48 PM CDT): Her [id number] score is 2. At her last visit [...] on file Legal Sex Female 6:46 PM CO TEACHER Gender Identity Not on file Sexual Orientation Not on file Last Filed Vital Signs Vital Sign Reading Time Taken Comments Blood Pressure 110/68 05/04/2024 8:43 AM CO TEACHER Pulse 58 05/04/2024 8:43 AM CO TEACHER Temperature 36.2 C (97.2 F) 02/06/2024 10:30 AM CO TEACHER Respiratory Rate 18 02/06/2024 10:50 AM CO TEACHER Oxygen Saturation 99% 05/04/2024 8:43 AM CO TEACHER Inhaled Oxygen Concentration - - Weight 59.9 kg (132 lb) 05/04/2024 8:43 AM CO TEACHER Height 165.1 cm (5' 5) 05/04/2024 8:43 AM CO TEACHER Body Mass Index 21.97 05/04/2024 8:43 AM CO TEACHER Plan of Treatment Not on file Medical Devices Implanted Type Area Parts Interpreter Device Identifier Shelf Expiration Date Model / Serial / Lot Integra HealogicaciBrand Embassy Ciara Integra 2x2in Mesh Dressing Biological Bovine Collagen [id number] - [id number] Implanted:Qty: 1 on 10/12/2022 by Dinh Gillespie MD at [facility] CleanMyCRMa POKKT Ciara [id number] 12/03/2023 [id number] / / [id number] Biocomposites Stimulan Rapid Cure Kit Paste Split Leather Department Supervisor 5cc 12.5cc Bone Void 620-005 - [id number] Implanted:Qty: 1 on 10/22/2022 by Dinh Gillespie MD at [facility] Left: Calcaneus Biocomposites 04/03/2025 620-005 / / [employer] Spring Microvascular 2mm Ring Pin Protective Cover Jaw Assembly Latex Free [id number] - [id number] Implanted:Qty: 1 on 10/22/2022 by Dinh Gillespie MD at [facility] Left: Calcaneus Synovis iovox Jeremi [id number] 06/02/2027 [id number] / / [id number]- [id number] Synovis IPR International Spring Microvascular 2mm Ring Pin Protective Cover Jaw Assembly Latex Free [id number] - [id number] Implanted:Qty: 1 on 10/22/2022 by Dinh Gillespie MD at [facility] Left: Calcaneus Synovis iovox Jeremi [id number] 06/02/2027 [id number] / / [id number]- [id number] Arthrex Inc Internalbrace Kit Hand Wrist Set Implant Ligament Augmentation Ar-8978-Cp - [id number] Implanted:Qty: 1 on 02/06/2024 by Rozina Gaxiola MD at [facility] Right: Thumb Arthrex Inc [id number] 03/03/2028 AR-8978 - CP / / [id number] Insurance T MEDICARE T MEDICARE AET MEDICARE [facility] Address: [facility] [id number] [place] [id number] Advance Directives For more information, please contact: [phone] * Full Code (Latest Code Status on File) Date Activated Date Inactivated Comments 10/22/2022 7:00 PM 10/28/2022 10:55 PM Care Teams Bobbin Disker Relationship Specialty Start Date End Date Uziel Garcia MD [address] [place] [address] PCP - General 05/20/11
--- OUTSIDE RECORDS SUMMARY | 2024-11-01 08:46 | XMS_ITS | Clinical Summary ---
Author Organization [facility] Address [address] [place] [address] Care Team Providers Care Lumber Carrier Name Role Phone Uziel Garcia MD Primary Care Provider [phone] Allergies Active Allergy Reactions Criticality Noted Date [...] home metoprolol on discharge, will message her oil truck driver Dr. Ahumada regarding medication changes. Encouraged patient [...] of bradycardia. In touching base with her oil truck driver Dr. Ahumada, he would prefer to keep patient on hydralazine --Continue lisinopril 10 mg daily, this will be a new medication on discharge. Continue home hydralazine per outpatient oil truck driver. Afib 11/11/2021 Assessment & Plan (10/26/2022 4:48 PM CDT): Her [id number] score is 2. At her last visit [...] on file Legal Sex Female 6:46 PM HACK DRIVER Gender Identity Not on file Sexual Orientation Not on file Obstetrics History Last Filed Vital Signs Vital Sign Reading Time Taken Comments Blood Pressure 110/68 05/04/2024 8:43 AM HACK DRIVER Pulse 58 05/04/2024 8:43 AM HACK DRIVER Temperature 36.2 C (97.2 F) 02/06/2024 10:30 AM HACK DRIVER Respiratory Rate 18 02/06/2024 10:50 AM HACK DRIVER Oxygen Saturation 99% 05/04/2024 8:43 AM HACK DRIVER Inhaled Oxygen Concentration - - Weight 59.9 kg (132 lb) 05/04/2024 8:43 AM HACK DRIVER Height 165.1 cm (5' 5) 05/04/2024 8:43 AM HACK DRIVER Body Mass Index 21.97 05/04/2024 8:43 AM HACK DRIVER Plan of Treatment Health Maintenance Due Date [...] 02/06/2024, 11/17/19 Medical Devices Implanted Type Area Creative Services Director Device Identifier Shelf Expiration Date Model / Serial / Lot Integra Lifesciences Ciara Integra 2x2in Mesh Dressing Biological Bovine Collagen [id number] - [id number] Implanted:Qty: 1 on 10/12/2022 by Dinh Gillespie MD at [facility] Integra Lifesciences Ciara [id number] 12/03/2023 [id number] / / [id number] Biocomposites Stimulan Rapid Cure Kit Paste Ecommerce Analyst 5cc 12.5cc Bone Void [id number] - [id number] Implanted:Qty: 1 on 10/22/2022 by Dinh Gillespie MD at [facility] Left: Calcaneus Biocomposites 04/03/2025 620-005 / / Synovis nContact Surgical Jeremi Landaverde Microvascular 2mm Ring Pin Protective Cover Jaw Assembly Latex Free [id number] - [id number] Implanted:Qty: 1 on 10/22/2022 by Dinh Gillespie MD at [facility] Left: Calcaneus Synovis Micro Companies Jeremi [id number] 06/02/2027 [id number] / / [id number]- [id number] Synovis Micro Companies Allian Knox Microvascular 2mm Ring Pin Protective Cover Jaw Assembly Latex Free [id number] - [id number] Implanted:Qty: 1 on 10/22/2022 by Dinh Gillespie MD at [facility] Left: Calcaneus Synovis Micro AboutOne Jeremi [id number] 06/02/2027 [id number] / / [id number]- [id number] Arthrex Inc Internalbrace Kit Hand Wrist Set Implant Ligament Augmentation Ar-8978-Cp - [id number] Implanted:Qty: 1 on 02/06/2024 by Rozina Gaxiola MD at [facility] Right: Thumb Arthrex Inc [id number] 03/03/2028 AR-8978 - CP / / [id number] Insurance AETNA MEDICARE AETNA MEDICARE [facility] MEDICARE T MEDICARE Advance Directives For more information, please contact: [phone] * Full Code (Latest Code Status on File) Date Activated Date Inactivated Comments 10/22/2022 7:00 PM 10/28/2022 10:55 PM Care Teams Lumber Carrier Relationship Specialty Start Date End Date Uziel Garcia MD [id number] [facility] - General 05/20/11
--- OUTSIDE RECORDS SUMMARY | 2024-11-01 08:46 | XMS_ITS | Clinical Summary ---
Author Organization [facility] Address [address] [place] [address] Care Team Providers Care Auth Specialist Name Role Phone Uziel Garcia MD Primary Care Provider [phone] Active Problems Problem Noted Date Diagnosed Date Skin ulcer of left heel with fat layer exposed (CMS/HCC HHS/HCC) 07/27/2022 Local edema 07/27/2022 Chronic pain of left ankle 07/27/2022 Basal cell carcinoma (BCC) of foot 07/07/2022 Overview (07/07/2022): Left heel 06/19/2019 Open wound of heel 05/13/2022 Social History Tobacco Use Types Packs/Day Years Used Date Smoking Tobacco: Never Comments Unknown Sex and Gender Information Value Date Recorded Sex Assigned at Female 04/21/2022 2:24 PM SUGAR CHIPPER MACHINE OPERATOR Legal Sex Female 10:43 PM CDT Gender Identity Female 04/21/2022 2:24 PM SUGAR CHIPPER MACHINE OPERATOR Sexual Orientation Straight 04/21/2022 2: 24 PM SUGAR CHIPPER MACHINE OPERATOR Last Filed Vital Signs Vital Sign Reading Time Taken Comments Blood Pressure 132/74 07/19/2013 4:46 PM CDT Pulse 76 07/19/2013 4:45 PM CDT Temperature - - Respiratory Rate 16 07/19/2013 4:45 PM CDT Oxygen Saturation - - Inhaled Oxygen Concentration - - Weight 67.1 kg (148 lb) 07/19/2013 4:45 PM CDT Height 161.3 cm (5' 3.5) 07/19/2013 4:45 PM CDT Body Mass Index 25.81 07/19/2013 4:45 PM CDT Plan of Treatment Health Maintenance Due Date Last Done Comments Colorectal Cancer Screening Colonoscopy (10 Years) 1960 Hepatitis C 1976 DTaP, Tdap and Td Vaccines ( 1 - Tdap) 1977 Mammogram Screening 1998 Zoster Vaccines (1 of 2) 2008 Pneumococcal Vaccine: 50+ Years (2 of 2 - PPSV23) 02/09/2019 02/09/2018 Annual Medicare Wellness Visit 09/30/2023 Dexa Scan (General) 09/30/2023 COVID-19 Vaccine (4 - 2023-2 5 season) 2023 04/29/2021, 07/18/2020, 06/20/2020 RSV Immunization or 60+ Years (1 - 1-dose 75+ series) 2033 Meningococcal B Vaccine Aged Out No l onger eligible based on patient's age to complete this topic Meningococcal Vaccine Aged Out No mallory alyssia eligible based on patient's age to complete this topic RSV Immunizations Under 20 Months Aged Out No longer eligible b ased on patient's age to complete this topic Insurance AETNA Care Teams Auth Specialist Relationship Specialty Start Date End Date Uziel Garcia MD [address] [place] [address] PCP - General INTERNAL MEDICINE 04/21/22
--- OUTSIDE RECORDS SUMMARY | 2024-11-01 08:46 | XMS_ITS | Encounter Summary ---
Author Organization [facility] Healthcare Address [address] [place] [address] Care Team Providers Care Pre Press Manager Name Role Phone Uziel Garcia MD Primary Care Provider [phone] Encounter Details Date Type Department Care Team (Late st Contact Info) Description 11/06/2021 Orders Only [facility] Health Information Management [address] [place] [address] Scanning, Provider Social History Tobacco Use Types Packs/Day Years Used Date Smoking Tobacco: Never Smokeless Tobacco: Never Alcohol Use Standard Drinks/Week Comments No 0 (1 standard drink = 0.6 oz pur e alcohol) Comments Unknown Sex and Gender Information Value Date Recorded Sex Assigned at Not on file Legal Sex Female 6:46 PM MANAGER SIX SIGMA Gender Identity Not on file Sexual Orientation [...] on filedocumented in this encounter Care Teams Pre Press Manager Relationship Specialty Start Date End Date Uziel Garcia MD [address] [place] [address] PCP - General 05/20/11 documented as of this encounter
--- OUTSIDE RECORDS SUMMARY | 2024-11-01 08:46 | XMS_ITS | Encounter Summary ---
Author Organization [facility] Address [address] [place] [address] Care Team Providers Care Reclaimer Name Role Phone Uziel Garcia MD Primary Care Provider [phone] Encounter Details Date Type Department Care Team (Late st Contact Info) Description 08/17/2022 directworxt Message Enc [facility] [address] [place] [address] Radha [facility] NP [address] [place] [address] Recent MRI Social History Tobacco Use Types Packs/Day Years Used Date Smoking Tobacco: Never Comments Unknown Sex and Gender Information Value Date Recorded Sex Assigned at Female 04/21/2022 2:24 PM ELECTRONEURODIAGNOSTIC TECHNOLOGIST Legal Sex Female 10:43 PM CDT Gender Identity Female 04/21/2022 2:24 PM ELECTRONEURODIAGNOSTIC TECHNOLOGIST Sexual Orientation Straight 04/21/2022 2: 24 PM ELECTRONEURODIAGNOSTIC TECHNOLOGIST COVID-19 Exposure Response Date Recorded In the last 10 days, have yo u been in contact with someone who was confirmed or suspected to have Coronavirus/COVID-19? No / Unsure 08/17/2022 10:31 AM CDT documented as of this encounter Plan of Treatment Not on file documented as of this encounter Visit Diagnoses Not on filedocumented in this encounter Care Teams Reclaimer Relationship Specialty Start Date End Date Uziel Garcia MD [address] [place] [address] PCP - General INTERNAL MEDICINE 04/21/22 documented as of this encounter
--- OUTSIDE RECORDS SUMMARY | 2024-11-01 08:46 | XMS_ITS | Clinical Summary ---
Author Organization [facility] Address [address] [place] [address] Phone Care Team Providers Care Brand Manager Name Role Phone Unavailable Primary Care Provider [...] Comments Blood Pressure 132/70 04/02/2013 12:01 AM ENVIRONMENTAL RESOURCE SPECIALIST Pulse 72 04/02/2013 12:01 AM ENVIRONMENTAL RESOURCE SPECIALIST Temperature 36 C (96.8 F) 04/02/2013 12:01 AM ENVIRONMENTAL RESOURCE SPECIALIST Respiratory Rate - - Oxygen Saturation - - Inhaled Oxygen Concentration - - Weight 68 kg (150 lb) 04/02/2013 12:01 AM ENVIRONMENTAL RESOURCE SPECIALIST Height 167.6 cm (5' 6) 04/02/2013 12:01 AM ENVIRONMENTAL RESOURCE SPECIALIST Body Mass Index 24.21 04/02/2013 12:01 AM ENVIRONMENTAL RESOURCE SPECIALIST Plan of Treatment Not on file
--- OUTSIDE RECORDS SUMMARY | 2024-11-01 08:46 | XMS_ITS | Patient Health Record ---
Author Organization [facility] [employer] Address [address] [facility] [address] [place] [address] Care Team Providers Care Psychiatric Technician Name Role Phone Tavo Pulido Unavailable [phone] Reason For Referral No Information Medications Medication SIG (Take, Route, Frequency, Duration) Notes Start Date End Date Status Topiramate 100 MG Oral Ac tive Topamax 200 MG Oral Activ e tiZANidine HCl 4 MG Oral Active Remeron 45 mg Oral *Pick strength-form from [employer]place for eRX* Active SUMAtriptan Succinate 50 MG Oral Active Zolpidem Tartrate 5 MG Oral Active HYDROCODONE 10 MG-ACETAMINOPHEN 325 MG/15 ML (15 ML) ORAL SOLUTION *Reorder from Data Marketplace for eRx and Interaction Alerts* Active Nefazodone HCl 250 mg Oral Active Cephalexin 500 MG Oral Ac tive Vicodin 5-300 MG Oral *Reorder from Data Marketplace for eRx and Interaction Alerts* Active Topiramate 200 MG Oral Ac tive Triamterene-HCTZ 37.5-25 MG Oral Active LaMICtal 150 MG Oral Acti ve Mikes Carbonate 150 MG Oral Active Imiquimod 5 % External Active OLANZapine 2.5 MG Oral Ac tive Xanax 0.5 MG Oral Active Zanaflex 4 MG Oral Active Mikes Carbonate 300 MG Oral Active Pramipexole Dihydrochloride 0.25 MG Oral Acti ve PROzac 40 MG Oral Active Azithromycin 250 MG Oral Active Furosemide 40 MG Oral Act juwan FLUoxetine HCl 40 MG Oral Active MiraLax 17 gram Oral *Pick strength-form from [employer] for eRX* Active OLANZapine 5 MG Oral Acti ve Mirtazapine 15 MG Oral Ac tive FLUoxetine HCl 20 MG Oral Active Lunesta 3 MG Oral Active lamoTRIgine 150 MG Oral A ctive Plan Of Treatment No Information
[2024-11-01 08:55] VITALS: BP 110/68; PULSE 72; RESP 14; TEMP 36.6; O2SAT 98; BMI 20.9
[2024-11-01] MEDS: ZOLEDRONIC ACID 5 MG/100 ML 100 ML 400 MG IVPB (09:10)
[2024-11-01 09:34] VITALS: BP 109/63; PULSE 68; RESP 14
[2024-11-01] MEDS: HEPARIN SODIUM LOCK FLUSH 500 UNITS/5 ML SYRINGE IV PUSH (09:36)
--- NOTE | 2024-11-01 09:37 | PC.NURSE ---
Tolerated IV Reclast infusion well. SEE MAR/patient care notes.
== END 2024-11-01 08:40 | disposition home or self-care (01) ==
PROVIDERS: PCP Internal Medicine; Visit Provider Internal Medicine
DX: M81.0 Age-related osteoporosis without current pathological fracture (principal)
CPT/HCPCS: 96374; J3489

== ENCOUNTER 2024-11-05 08:38 | Outpatient (CLI) | payer MEDICARE, SELFPAY ==
--- NOTE | ~2024-11-05 | MMUS_ITS ---
EXAMINATION: MM diagnostic radha RT w toma, US breast RT limited INDICATION: 64-year old female; BI-RADS 0, callback to evaluate developing right breast mass. COMPARISON: 10/30/2024 TECHNIQUE: Digital breast tomosynthesis ML and spot compression CC and MLO views of right breast were obtained with computer-aided detection to assist in interpretation of the study. MAMMOGRAM FINDINGS: There are scattered areas of fibroglandular density. There is a mass with circumscribed margins that persisted in the inferior medial at anterior depth wi thin the right breast. Venous access port overlying right chest wall. RIGHT BREAST ULTRASOUND FINDINGS: Targeted evaluation of inferior medial right breast completed showed a 0.8 x 0.9 x 0.5 cm complex mas s at 5:00, 3 cm from the nipple location. The lesion correlates to the area of mammographic finding. IMPRESSION: Suspicious right breast mass at 5:00 location that correlates to mammography finding. Bio psy is recommended. RECOMMENDATION: Ultrasound-guided core needle biopsy. BI-RADS 4, SUSPICIOUS Reviewed, dictated and finalized at location B. IMPRESSION: Suspicious right breast mass at 5:00 location that correlates to ma mmography finding. Biopsy is recommended. RECOMMENDATION: Ultrasound-guided core needle biopsy. BI-RADS 4, SUSPICIOUS
--- OUTSIDE RECORDS SUMMARY | 2024-11-05 08:44 | XMS_ITS | Clinical Summary ---
Author Organization [facility] Address [address] [place] [address] Care Team Providers Care Rn Unit Manager Name Role Phone Uziel Garcia MD Primary Care Provider [phone] Active Problems Problem Noted Date Diagnosed Date [...] Sex Assigned at Female 04/21/2022 2:24 PM OPTIMIZATION MANAGER Legal Sex Female 10:43 PM CDT Gender Identity Female 04/21/2022 2:24 PM OPTIMIZATION MANAGER Sexual Orientation Straight 04/21/2022 2: 24 PM OPTIMIZATION MANAGER Last Filed Vital Signs Vital Sign Reading [...] complete this topic Insurance AETNA Care Teams Rn Unit Manager Relationship Specialty Start Date End Date Uziel Garcia MD [address] [place] [address] PCP - General INTERNAL MEDICINE 04/21/22
--- OUTSIDE RECORDS SUMMARY | 2024-11-05 08:44 | XMS_ITS | Encounter Summary ---
Author Organization [facility] Address [address] [place] [address] Care Team Providers Care Carton Forming Machine Adjuster Name Role Phone Uziel Garcia MD Primary Care Provider [phone] Encounter Details Date Type Department Care Team (Late st Contact Info) Description 08/17/2022 Spanning Cloud Appst Message Enc [facility] [address] [place] [address] Radha Hamilton NP [address] [place] [address] Recent MRI Social History Tobacco Use Types Packs/Day Years Used Date Smoking Tobacco: Never Comments Unknown Sex and Gender Information Value Date Recorded Sex Assigned at Female 04/21/2022 2:24 PM PLATING TECHNICIAN Legal Sex Female 10:43 PM CDT Gender Identity Female 04/21/2022 2:24 PM PLATING TECHNICIAN Sexual Orientation Straight 04/21/2022 2: 24 PM PLATING TECHNICIAN COVID-19 Exposure Response Date Recorded In the last 10 days, have yo u been in contact with someone who was confirmed or suspected to have Coronavirus/COVID-19? No / Unsure 08/17/2022 10:31 AM CDT documented as of this encounter Plan of Treatment Not on file documented as of this encounter Visit Diagnoses Not on filedocumented in this encounter Care Teams Carton Forming Machine Adjuster Relationship Specialty Start Date End Date Uziel Garcia MD [address] [place] [address] PCP - General INTERNAL MEDICINE 04/21/22 documented as of this encounter
--- OUTSIDE RECORDS SUMMARY | 2024-11-05 08:44 | XMS_ITS | Referral Summary ---
Author Organization [facility] Address [address] [place] [address] Care Team Providers Care Automation Lead Name Role Phone Uziel Garcia MD Primary Care Provider [phone] Allergies Active Allergy Reactions Criticality Noted Date [...] home metoprolol on discharge, will message her state appellate clerk Dr. Ahumada regarding medication changes. Encouraged patient [...] of bradycardia. In touching base with her state appellate clerk Dr. Ahumada, he would prefer to keep patient on hydralazine --Continue lisinopril 10 mg daily, this will be a new medication on discharge. Continue home hydralazine per outpatient state appellate clerk. Afib 11/11/2021 Assessment & Plan (10/26/2022 4:48 PM CDT): Her [id number] score is 2. At her last visit [...] on file Legal Sex Female 6:46 PM CHILDREN'S INSTITUTION ATTENDANT Gender Identity Not on file Sexual Orientation Not on file Last Filed Vital Signs Vital Sign Reading Time Taken Comments Blood Pressure 110/68 05/04/2024 8:43 AM CHILDREN'S INSTITUTION ATTENDANT Pulse 58 05/04/2024 8:43 AM CHILDREN'S INSTITUTION ATTENDANT Temperature 36.2 C (97.2 F) 02/06/2024 10:30 AM CHILDREN'S INSTITUTION ATTENDANT Respiratory Rate 18 02/06/2024 10:50 AM CHILDREN'S INSTITUTION ATTENDANT Oxygen Saturation 99% 05/04/2024 8:43 AM CHILDREN'S INSTITUTION ATTENDANT Inhaled Oxygen Concentration - - Weight 59.9 kg (132 lb) 05/04/2024 8:43 AM CHILDREN'S INSTITUTION ATTENDANT Height 165.1 cm (5' 5) 05/04/2024 8:43 AM CHILDREN'S INSTITUTION ATTENDANT Body Mass Index 21.97 05/04/2024 8:43 AM CHILDREN'S INSTITUTION ATTENDANT Plan of Treatment Not on file Medical Devices Implanted Type Area Resources Representative Device Identifier Shelf Expiration Date Model / Serial / Lot Integra vBrandciGeotender Ciara Integra 2x2in Mesh Dressing Biological Bovine Collagen [id number] - [id number] Implanted:Qty: 1 on 10/12/2022 by Dinh Gillespie MD at [facility] [employer] Ciara [id number] 12/03/2023 [id number] / / [id number] Biocomposites Stimulan Rapid Cure Kit Paste Real Estate Transaction Manager 5cc 12.5cc Bone Void 620-005 - [id number] Implanted:Qty: 1 on 10/22/2022 by Dinh Gillespie MD at [facility] Left: Calcaneus Biocomposites 04/03/2025 620-005 / / HelpHive Neosho Microvascular 2mm Ring Pin Protective Cover Jaw Assembly Latex Free [id number] - [id number] Implanted:Qty: 1 on 10/22/2022 by Dinh Gillespie MD at [facility] Left: Calcaneus Synovis [employer] SARL Jeremi [id number] 06/02/2027 [id number] / / [id number]- [id number] Synovis Mundi Neosho Microvascular 2mm Ring Pin Protective Cover Jaw Assembly Latex Free [id number] - [id number] Implanted:Qty: 1 on 10/22/2022 by Dinh Gillespie MD at [facility] Left: Calcaneus Synovis [employer]Media [employer] SARL Jeremi [id number] 06/02/2027 [id number] / / [id number]- [id number] Arthrex Inc Internalbrace Kit Hand Wrist Set Implant Ligament Augmentation Ar-8978-Cp - [id number] Implanted:Qty: 1 on 02/06/2024 by Rozina Gaxiola MD at [facility] Right: Thumb Arthrex Inc [id number] 03/03/2028 AR-8978 - CP / / [id number] Insurance T MEDICARE T MEDICARE AET MEDICARE AET MEDICARE NEUROLOGICAL INSTITUTENA MEDICARE Address: [facility] [id number] [place] [id number] Advance Directives For more information, please contact: [phone] * Full Code (Latest Code Status on File) Date Activated Date Inactivated Comments 10/22/2022 7:00 PM 10/28/2022 10:55 PM Care Teams Automation Lead Relationship Specialty Start Date End Date Uziel Garcia MD [address] [place] [address] PCP - General 05/20/11
--- OUTSIDE RECORDS SUMMARY | 2024-11-05 08:44 | XMS_ITS | Clinical Summary ---
Author Organization [facility] Address [address] [place] [address] Care Team Providers Care Health Care Legal Assistant Name Role Phone Uziel Garcia MD Primary Care Provider [phone] Allergies Active Allergy Reactions Criticality Noted Date [...] home metoprolol on discharge, will message her banana grader Dr. Ahumada regarding medication changes. Encouraged patient [...] of bradycardia. In touching base with her banana grader Dr. Ahumada, he would prefer to keep patient on hydralazine --Continue lisinopril 10 mg daily, this will be a new medication on discharge. Continue home hydralazine per outpatient banana grader. Afib 11/11/2021 Assessment & Plan (10/26/2022 4:48 PM CDT): Her ytlty8cmrc4 score is 2. 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 Gender Identity Not on file Sexual Orientation Not on file Obstetrics History Last Filed Vital Signs Vital Sign Reading Time Taken Comments Blood Pressure 110/68 05/04/2024 8:43 AM THERMOSTAT MACHINE TENDER Pulse 58 05/04/2024 8:43 AM THERMOSTAT MACHINE TENDER Temperature 36.2 C (97.2 F) 02/06/2024 10:30 AM THERMOSTAT MACHINE TENDER Respiratory Rate 18 02/06/2024 10:50 AM THERMOSTAT MACHINE TENDER Oxygen Saturation 99% 05/04/2024 8:43 AM THERMOSTAT MACHINE TENDER Inhaled Oxygen Concentration - - Weight 59.9 kg (132 lb) 05/04/2024 8:43 AM THERMOSTAT MACHINE TENDER Height 165.1 cm (5' 5) 05/04/2024 8:43 AM THERMOSTAT MACHINE TENDER Body Mass Index 21.97 05/04/2024 8:43 AM THERMOSTAT MACHINE TENDER Plan of Treatment Health Maintenance Due Date [...] 02/06/2024, 11/17/19 Medical Devices Implanted Type Area Director Of Software Development Device Identifier Shelf Expiration Date Model / Serial / Lot Integra Lifesciences Ciara Integra 2x2in Mesh Dressing Biological Bovine Collagen [id number] - [id number] Implanted:Qty: 1 on 10/12/2022 by Dinh Gillespie MD at [facility] Integra Lifesciences Ciara [id number] 12/03/2023 [id number] / / [id number] Biocomposites Stimulan Rapid Cure Kit Paste Senior Web Applications Developer 5cc 12.5cc Bone Void 620-005 - [id number] Implanted:Qty: 1 on 10/22/2022 by Dinh Gillespie MD at [facility] Left: Calcaneus Biocomposites 04/03/2025 620-005 / / Synovis PublishThis Jeremi Troy Microvascular 2mm Ring Pin Protective Cover Jaw Assembly Latex Free [id number] - [id number] Implanted:Qty: 1 on 10/22/2022 by Dinh Gillespie MD at [facility] Left: Calcaneus Synovis Micro Companies Jeremi [id number] 06/02/2027 [id number] / / [id number]- [id number] Synovis Micro Companies Allian Troy Microvascular 2mm Ring Pin Protective Cover Jaw Assembly Latex Free [id number] - [id number] Implanted:Qty: 1 on 10/22/2022 by Dinh Gillespie MD at [facility] Left: Calcaneus Synovis Micro Sabirmedical Jeremi [id number] 06/02/2027 [id number] / / [id number]- [id number] Arthrex Inc Internalbrace Kit Hand Wrist Set Implant Ligament Augmentation Ar-8978-Cp - [id number] Implanted:Qty: 1 on 02/06/2024 by Rozina Gaxiola MD at [facility] Right: Thumb Arthrex Inc [id number] 03/03/2028 AR-8978 - CP / / [id number] Insurance T MEDICARE AET MEDICARE AET MEDICARE AET MEDICARE Advance Directives For more information, please contact: [phone] * Full Code (Latest Code Status on File) Date Activated Date Inactivated Comments 10/22/2022 7:00 PM 10/28/2022 10:55 PM Care Teams Health Care Legal Assistant Relationship Specialty Start Date End Date Uziel Garcia MD [address] [place] [address] [facility] - General 05/20/11
--- OUTSIDE RECORDS SUMMARY | 2024-11-05 08:44 | XMS_ITS ---
Author Organization [facility] Address [address] [place] [address] Care Team Providers Care Package Wrapper Name Role Phone Uziel Garcia MD Primary Care Provider [phone] Active Problems Problem Noted Date Diagnosed Date Skin ulcer of left heel with fat layer exposed ([facility]/HCC HHS/HCC) 07/27/2022 Local edema 07/27/2022 Chronic pain of left ankle 07/27/2022 Basal cell carcinoma (BCC) of foot 07/07/2022 Overview (07/07/2022): Left heel 06/19/2019 Open wound of heel 05/13/2022 Current Treatment and Therapy Plans No current plan information found. Past Treatment and Therapy Plans
--- OUTSIDE RECORDS SUMMARY | 2024-11-05 08:44 | XMS_ITS | Clinical Summary ---
Author Organization [facility] Address [address] [place] [id number] Phone Care Team Providers Care Furniture And Bedding Inspector Name Role Phone Unavailable Primary Care Provider [...] Comments Blood Pressure 132/70 04/02/2013 12:01 AM HORSE BUYER Pulse 72 04/02/2013 12:01 AM HORSE BUYER Temperature 36 C (96.8 F) 04/02/2013 12:01 AM HORSE BUYER Respiratory Rate - - Oxygen Saturation - - Inhaled Oxygen Concentration - - Weight 68 kg (150 lb) 04/02/2013 12:01 AM HORSE BUYER Height 167.6 cm (5' 6) 04/02/2013 12:01 AM HORSE BUYER Body Mass Index 24.21 04/02/2013 12:01 AM HORSE BUYER Plan of Treatment Not on file
--- OUTSIDE RECORDS SUMMARY | 2024-11-05 08:44 | XMS_ITS | Patient Health Record ---
Author Organization [facility] Address [address] [facility] [address] [place] [address] Care Team Providers Care Mixer Operator Tablets Name Role Phone Tavo Pulido Unavailable [phone] Reason For Referral No Information Medications Medication SIG (Take, Route, Frequency, Duration) Notes Start Date End Date Status Topiramate 100 MG Oral Ac tive Topamax 200 MG Oral Activ e tiZANidine HCl 4 MG Oral Active Remeron 45 mg Oral *Pick strength-form from [employer]ix for eRX* Active SUMAtriptan Succinate 50 MG Oral Active Zolpidem Tartrate 5 MG Oral Active HYDROCODONE 10 MG-ACETAMINOPHEN 325 MG/15 ML (15 ML) ORAL SOLUTION *Reorder from [employer] for eRx and Interaction Alerts* Active Nefazodone HCl 250 mg Oral Active Cephalexin 500 MG Oral Ac tive Vicodin 5-300 MG Oral *Reorder from [employer] for eRx and Interaction Alerts* Active Topiramate 200 MG Oral Ac tive Triamterene-HCTZ 37.5-25 MG Oral Active LaMICtal 150 MG Oral Acti ve Noonday Carbonate 150 MG Oral Active Imiquimod 5 % External Active OLANZapine 2.5 MG Oral Ac tive Xanax 0.5 MG Oral Active Zanaflex 4 MG Oral Active Noonday Carbonate 300 MG Oral Active Pramipexole Dihydrochloride 0.25 MG Oral Acti ve PROzac 40 MG Oral Active Azithromycin 250 MG Oral Active Furosemide 40 MG Oral Act juwan FLUoxetine HCl 40 MG Oral Active MiraLax 17 gram Oral *Pick strength-form from InTouch [employer] for eRX* Active OLANZapine 5 MG Oral Acti ve Mirtazapine 15 MG Oral Ac tive FLUoxetine HCl 20 MG Oral Active Lunesta 3 MG Oral Active lamoTRIgine 150 MG Oral A ctive Plan Of Treatment No Information
== END 2024-11-05 08:39 | disposition home or self-care (01) ==
LOC: CHSIMG 08:39
PROVIDERS: PCP Internal Medicine; Visit Provider Internal Medicine
DX: R92.8 Other abnormal and inconclusive findings on diagnostic imaging of breast (principal)
CPT/HCPCS: 76642; 77061; 77065; G0279